=== PATIENT | female | born 1945 | race Caucasian/White ===

== ENCOUNTER 2018-02-04 08:01 | Emergency (ER) | payer MEDICARE ==
[~2018-02-04] VITALS: Ht 154.9 cm; Wt 72.6 kg
--- OUTSIDE RECORDS SUMMARY | ~2018-02-04 | XMS | Clinical Summary ---
Demographics + + + | Address | [address] | | | [place] [address] | + + + | Home Phone | | + + + | Preferred Language | Unknown | + + + | Marital Status | | + + + | Nondenominational Affiliation | 1013 | + + + | Race | Unknown | + + + | Ethnic Group | Unknown | + + + Author + + + | Author | [facility] | | | and [place] | + + + | Organization | [facility] | | | and [place] | + + + | Address | Unknown | + + + | Phone | Unavailable | + + + Support + + + + + | Name | Relationship | Address | Phone | + + + + + | Arlene Chavez | ECON | [address] | | | | | [place] | | | | | [address] | | + + + + + Care Team Providers + +------+ + | Care Hospice Liaison Name | Role | Phone | + +------+ + | Yoav Bobby | PP | | + +------+ + Allergies + + + + + + | Active Allergy | Reactions | Severity | Noted | Comments | | | | | Date | | + + + + + + | Cephalosporins | | | 09/13/20 | | | | | | 16 | | + + + + + + | Nsaids | | | 11/21/20 | | | | | | 16 | | + + + + + + | Penicillins | | | 11/21/20 | | | | | | 16 | | + + + + + + | Quinolones | | | 11/21/20 | | | | | | 16 | | + + + + + + | Sulfa Antibiotics | | | 11/21/20 | | | | | | 16 | | + + + + + + Current Medications + + +-------+---------+------+------+-------+ | Prescription | Sig. | Disp. | Refills | Star | End | Statu | | | | | | t | Date | s | | | | | | Date | | | + + +-------+---------+------+------+-------+ | | Take 1 tablet by | | | | | Activ | | acetaminophen-codein | mouth every 4 hours | | | | | e | | e (TYLENOL #3) | as needed for Pain. | | | | | | | 300-30 mg per tablet | | | | | | | + + +-------+---------+------+------+-------+ | loratadine | Take 10 mg by mouth | | | | | Activ | | (ALLERGY RELIEF) 10 | Daily. | | | | | e | | mg tablet | | | | | | | + + +-------+---------+------+------+-------+ | levothyroxine | Take 100 mcg by | | | | | Activ | | (SYNTHROID, | mouth every morning | | | | | e | | LEVOTHROID) 100 mcg | (before breakfast). | | | | | | | tablet | | | | | | | + + +-------+---------+------+------+-------+ | lovastatin | Take 40 mg by mouth | | | | | Activ | | (MEVACOR) 40 MG | nightly. | | | | | e | | tablet | | | | | | | + + +-------+---------+------+------+-------+ | omeprazole | Take 20 mg by mouth | | | | | Activ | | (PRILOSEC) 20 mg | every morning | | | | | e | | capsule | (before breakfast). | | | | | | + + +-------+---------+------+------+-------+ | Vitamin D, | Take by mouth. | | | | | Activ | | Cholecalciferol, | | | | | | e | | 1000 UNITS TABS | | | | | | | + + +-------+---------+------+------+-------+ | fluticasone | 1 spray by Nasal | | | | | Activ | | (FLONASE) 50 | route Daily. 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 Last Assessment & Plan: Brief, 30 | | minute office encounter with Thea Altamirano "Eliz" [...] today. | + + Family History + + +------+ + | [...] + | Blood Pressure | 125/70 | 09/14/20161351 PST | + + + + | Pulse | 111 | 09/14/20161351 PST | + + + + | Temperature | 37.1 C (98.8 F) | 09/14/20161351 PST | + + + + | Respiratory Rate | 18 | 09/14/20161351 PST | + + + + | Oxygen Saturation | 94% | 09/14/20161351 PST | + + + + | Inhaled Oxygen | - | - | | Concentration | | | + + + + | Weight | 76.3 kg (168 lb 3.2 | 09/14/20161351 PST | | | oz) | | + + + + | Height | 154.9 cm (5' 1") | 09/14/20161351 PST | + + + + | Body Mass Index | 31.78 | 09/14/2016 1352 PST | + + + + Plan of Treatment +--------+ + + + + | Date | Type | Specialty | Care Team | Description | +--------+ + + + + | 02/10/ | Appointment | | Kenya Owens | | | 2017 | | | MD [facility] [address] | | | | | | [place], [place] | | | | | | [address] | | | | | | | | +--------+ + + + + + + + + + | Health Maintenance | Due Date | Last Done | Comments | + + + + + | Vaccine: | | | | | Dtap/Tdap/Td (1 - | 3 | | | | Tdap) | | | | + + + + + | COLON CANCER | | | | | SCREENING | 4 | | | | (COLONOSCOPY EVERY | | | | | 10 YEARS 50-75) | | | | + + + + + | Vaccine: Zoster (#1) | | | | | | 4 | | | + + + + + | Vaccine: | | | | | Pneumococcal 65+ | 9 | | | | High/Highest Risk (1 | | | | | of 2 - PCV13) | | | | + + + + + | Vaccine: Influenza | | | | | (Season Ended) | 8 | | | + + + + + | BREAST CANCER | | 07/29/2016, 06/25/2016, | | | SCREENING (MAMM Q2 | 8 | 10/15/2014, Additional history | | | YEARS 50-74) | | exists | | + + [...] | | | + +--------+ +--------+-------+---------+ | [employer] | [facility] | xxxxxxxxx | Medica | | | | | HEALTH | | re | | | | | MDCR | | | | | + +--------+ [...] | 1945 | [phone] | [place] [address] | | | kayce | | | [phone] | | + +--------+ +--------+ + +
--- OUTSIDE RECORDS SUMMARY | ~2018-02-04 | XMS | Clinical Summary ---
Demographics + + + | Address | [address] | | | [place] [address] | + + + | Home Phone | | + + + | Preferred Language | Unknown | + + + | Marital Status | | + + + | Nondenominational Affiliation | 1013 | + + + | Race | Unknown | + + + | Ethnic Group | Unknown | + + + Author + + + | Author | [facility] | | | and [place] | + + + | Organization | [facility] | | | and [place] | [...] [place] | | | | | [address] | | + + + + + Care Team Providers + +------+ + | Care Licensed Practical Vocational Nurse Name | Role | Phone | + [...] [address] | | | | | | [place], [place] | | | | | | [address] | | | | | | | [...] | 1945 | [phone] | [place] [address] | | | kayce | | | [phone] | | + +--------+ +--------+ + +
[~2018-02-04 08:01] MED LIST: ACETAMINOPHEN-1 EAC1 PO; ALEVE220 M1 PO; ALLERGY10 M1 PO; BENADRYL25 MG PO; CLARITIN10 MG PO; FLONASE ALLERG9.9 ML NS; HYDROMORPHONE HC4 MG PO; LEVOTHYROXINE100 MCG PO; LOVASTATIN40 MG PO; OXYCODON-ACETA1 EAC2 PO; OXYCODONE HCL5 MG PO; PRILOSEC20 MG PO; SLOW RELEASE47.5 MG PO; TYLENOL EXTRA500 MG PO; TYLENOL WITH C1 EACH PO; VITAMIN C500 M1 PO; VITAMIN D31000 UNI1 PO; XARELTO10 MG PO
[2018-02-04] MEDS ORDERED: MACROBID 100 M100 MG PO (09:49)
== END 2018-02-04 09:54 | disposition home or self-care (01) ==
LOC: ED 08:01
DX: N39.0 Urinary tract infection, site not specified (principal); I10 Essential (primary) hypertension; E03.9 Hypothyroidism, unspecified; K21.9 Gastro-esophageal reflux disease without esophagitis; Z88.6 Allergy status to analgesic agent; Z88.0 Allergy status to penicillin; Z88.1 Allergy status to other antibiotic agents; Z79.899 Other long term (current) drug therapy
CPT/HCPCS: 80053; 81001; 83690; 85025; 87077; 87088; 87186; 99283

== ENCOUNTER 2018-04-17 11:39 | Day surgery (SDC) | payer MEDICARE ==
[~2018-04-17] VITALS: Ht 154.9 cm; Wt 77.1 kg
--- NOTE | ~2018-04-17 | OR ---
[facility] [address] [place] [address], [place] [address] Draft DATE OF OPERATION: 04/17/2018 SURGEON: Nga Gottlieb MD PREOPERATIVE DIAGNOSES: 1. Colon screening. 2. Reflux symptoms. POSTOPERATIVE DIAGNOSES: 1. Hiatal hernia without obvious esophagitis. 2. Normal colon to cecum. PROCEDURES PERFORMED: 1. Esophagogastroduodenoscopy with biopsy. 2. Total colonoscopy to cecum. ANESTHESIA: Intravenous sedation, fentanyl 150 mcg, Versed 2 mg total. INDICATIONS FOR PROCEDURE: This 72-year-old white woman has progressive dementia, though has high functioning overall. She was referred by Dr. Garcia for screening colonoscopy. She has never had colonoscopy in the past and has no known family history of colon cancer. The patient also has reflux symptoms, which include epigastric and substernal burning type pain. She takes Tums for that. She is not having dysphagia. She was placed on Pepcid instead of PPI medication under the direction of Dr. Garcia. She does not drink alcohol nor does she smoke. She was admitted to undergo upper endoscopy and colonoscopy, understanding the risks of bleeding, infection, and perforation. FINDINGS: On upper endoscopy, there was a hiatal hernia, but no sign of esophagitis. The stomach and duodenum were normal. CLOtest was negative 30 minutes post procedure. On colonoscopy, the prep was good. Complete colonoscopy was undertaken of the cecum. There was no sign of diverticula, colitis, polyps, or cancer. DESCRIPTION OF PROCEDURE: The patient was brought to the endoscopy suite and placed in lateral decubitus position after undergoing topical Hurricaine spray hypopharyngeal anesthesia. A bite block was PATIENT NAME: CALVIN ALTAMIRANO OPERATIVE REPORT DATE OF : 43 REPORT #: [id number] PHYSICIAN: NGA GOTTLIEB MD PCP: REILLY GARCIA MD REPORT IS CONFIDENTIAL AND NOT TO BE RELEASED WITHOUT AUTHORIZATION [facility] [address] [address], [place] [address] Draft placed. Intravenous sedation was induced to point of slurred speech and nystagmus with full cardiopulmonary monitoring. An Olympus video upper endoscope was passed in the hypopharynx. The vocal cords appeared normal. The scope was easily advanced into the esophagus. Throughout its length, it was normal. Scope was advanced to the stomach, which was insufflated with air. Rugal folds appeared normal as did the antrum. Pylorus was normal. Scope was passed through into the duodenum. The duodenum was also normal. Biopsies were obtained there to assess for celiac disease. The scope was withdrawn. A biopsy was then taken of the antrum for both KRISTEN and pathologic testing. Retroflexed view showed a poor flap valve consistent with small hiatal hernia. The scope was straightened and withdrawn. Biopsies were taken of the distal esophagus, which appeared normal as well as biopsies of the mid esophagus. The scope was removed. Plans were made for colonoscopy. The table was rotated and additional sedation given. Digital rectal examination was normal. An Olympus video colonoscope was passed in the rectum and manipulated throughout the colon ultimately intubating the cecum itself. The cecum, the ileocecal valve, and appendiceal orifice were normal. Scope was withdrawn from that point and examination throughout showed no sign of abnormality, specifically no polyps, diverticular formation, colitis, or cancer. Retroflex view was normal. The scope was removed and the patient was taken to recovery room in good condition. CONCLUDING DIAGNOSES: 1. Normal colon. 2. Hiatal hernia without obvious esophagitis. PLAN: Recommend continued Pepcid as she is taking. Consideration might be made for PPI medication per Dr. Garcia's preference. As regard to colon, no planned surveillance colonoscopy given age of 72 years, unless symptoms should develop. MD EDMUNDO Szymanski/MODL /[id number] PATIENT NAME: CALVIN ALTAMIRANO OPERATIVE REPORT DATE OF : 43 REPORT #: [id number] PHYSICIAN: NGA GOTTLIEB MD PCP: REILLY GARCIA MD REPORT IS CONFIDENTIAL AND NOT TO BE RELEASED WITHOUT AUTHORIZATION [facility] [address] [place] [id number] Draft cc: Reilly Garcia MD Copies: REILLY GARCIA MD ~ PATIENT NAME: CALVIN ALTAMIRANO OPERATIVE REPORT DATE OF : 43 REPORT #: [id number] PHYSICIAN: NGA GOTTLIEB MD PCP: REILLY GARCIA MD REPORT IS CONFIDENTIAL AND NOT TO BE RELEASED WITHOUT AUTHORIZATION
[~2018-04-17 11:39] MED LIST changes: +ALLERGY RELIEF10 MG PO; +DONEPEZIL HCL5 MG PO; +FAMOTIDINE40 MG PO; +LEVOTHYROXINE88 MCG PO; +MACROBID 100 M100 MG PO; +OXYBUTYNIN CHLOR5 MG PO
--- NOTE | 2018-04-17 14:09 | NUR ---
04/17/18 1409 Lillian Dotson 1356 PT ARRVIED RESP EVEN AND UNLABORED ON 4L VIA NC. PT VERY DROWSY AND PT UNABLE TO STAY AWAKE WITHOUT STIMULI. PT DENIES PAIN AND NAUSEA. 1408 PT ASLEEP OFF AND ON. PT REORIENTED TO PACU. PT PASSING GAS/AIR, PT EDUCAITON GIVEN ON PASSING GAS.
== END 2018-04-17 14:45 | disposition home or self-care (01) ==
LOC: DS 11:39 → OPS 11:39 → DS 13:00 → OPS 13:00
PROVIDERS: Surgery
PROC: 0DB78ZX Excision of Stomach, Pylorus, Via Natural or Artificial Opening Endoscopic, Diagnostic (ICD-10-PCS; 2018-04-17)
PROC: 0DB28ZX Excision of Middle Esophagus, Via Natural or Artificial Opening Endoscopic, Diagnostic (ICD-10-PCS; 2018-04-17)
PROC: 0DB38ZX Excision of Lower Esophagus, Via Natural or Artificial Opening Endoscopic, Diagnostic (ICD-10-PCS; 2018-04-17)
PROC: 0DJD8ZZ Inspection of Lower Intestinal Tract, Via Natural or Artificial Opening Endoscopic (ICD-10-PCS; principal; 2018-04-17 13:00)
PROC: 0DB98ZX Excision of Duodenum, Via Natural or Artificial Opening Endoscopic, Diagnostic (ICD-10-PCS; 2018-04-17 13:00)
DX: Z12.11 Encounter for screening for malignant neoplasm of colon (principal); K29.80 Duodenitis without bleeding; K21.9 Gastro-esophageal reflux disease without esophagitis; K44.9 Diaphragmatic hernia without obstruction or gangrene; E03.9 Hypothyroidism, unspecified; E78.00 Pure hypercholesterolemia, unspecified; C50.912 Malignant neoplasm of unspecified site of left female breast; F03.90 Unspecified dementia, unspecified severity, without behavioral disturbance, psychotic disturbance, mood disturbance, and anxiety; Z88.0 Allergy status to penicillin; Z88.2 Allergy status to sulfonamides; Z88.8 Allergy status to other drugs, medicaments and biological substances; Z98.890 Other specified postprocedural states
CPT/HCPCS: 43239; G0121; 99153; G0500; J2250; J3010; J7120

== ENCOUNTER 2019-09-04 10:28 | Emergency (ER) | payer MEDICARE ==
[~2019-09-04] VITALS: Ht 154.9 cm; Wt 77.1 kg
--- OUTSIDE RECORDS SUMMARY | ~2019-09-04 | XMS | Encounter Summary ---
Demographics + + + | Address | [address] | | | [place] [address] | + + + | Home Phone | | + + + | Preferred Language | Unknown | + + + | Marital Status | | + + + | Catholic Affiliation | 1013 | + + + | Race | Unknown | + + + | Ethnic Group | Unknown | + + + Author + + + | Author | [facility] | | | and [place] | + + + | Organization | [facility] | | | and [place] | + + + | Address | Unknown | + + + | Phone | Unavailable | + + + Support + + +---------+ + | Name | Relationship | Address | Phone | + + +---------+ + | Mark Gerardo | ECON | Unknown | | + + +---------+ + Care Team Providers + +------+ + | Care Joinery Patternmaker Name | Role | Phone | + +------+ + | Yoav Bobby MD | PCP | | + +------+ + Reason for Visit + + + | Reason | Comments | + + + | Psychosocial Support | | + + + Encounter Details +--------+ + + + + | Date | Type | Department | Care Team | Description | +--------+ + + + + | 09/27/ | Documentati | [facility] | Apollo Dhillon, | Psychosocial Support | | 2016 | on | [facility] | [facility] | | | | | [facility] [address] | | | | | | [address] | | | | | | [place] [address] | | | | | | [phone] | | | +--------+ + + + + Social History + +-------+ +--------+------+ | Tobacco Use | Types | Packs/Day | Years | Date | | | | | Used | | + +-------+ +--------+------+ | Never Smoker | | | | | + +-------+ +--------+------+ + +---+---+---+ | Smokeless Tobacco: | | | | | Never Used | | | | + +---+---+---+ + + +---------+ + | Alcohol Use | Drinks/Week | oz/Week | Comments | + + +---------+ + | No | | | | + + +---------+ + + + + | Sex Assigned at | Date Recorded | | | | + + + | Not on file | | + + + + + + + | Job Start Date | Occupation | Industry | + + + + | Not on file | Not on file | Not on file | + + + + + + + + | Travel History | Travel Start | Travel End | + + + + + + | No recent travel history available. | + + documented as of this encounter Progress Notes Apollo Dhillon MSW - 10/01/2016 9:56 AM PSTMSW met with patient, Thea Bey (Kay), to introduce self and administer NCCN Distress Screening Tool. Eliz is being treated for jo st cancer. She lives in [place], [place]. Eliz is covered by [employer] HMO. Eliz is alert and oriented X4 and reports no history of depression and/or anxiety. There is no evidence of thought disorder or other mental illness. Eliz reports level of distress is 5 on a 10 point scale. She attributes level of distress to the unknown about her diagnosis, treatment and future. Patient reports an adequate support system, good coping skills and st donal ramandeep. This Microsoft Solutions Architect allowed for expression of feeling and provided supportive counseling and information regarding the emotional aspects of a cancer diagnosis and treatment. Encourage d Eliz to attend community support group and offered literature on patient s diagnosis. This Microsoft Solutions Architect and Windows Server Architect are available to provide emotional support an d additional community resource information and referral as needed. Eliz is aware of support services and how to access them. Will follow up at appointments and by phone as needed.Elec tronically signed by DARLENE Cheung at 10/01/2016 9:58 AM PSTdocumented in this encou nter Plan of Treatment +--------+ + + + + | Date | Type | Specialty | Care Team | Description | +--------+ + + + + | 10/23/ | Appointment | Radiation Oncology | | | | 2019 | | | | | +--------+ + + + + documented as of this encounter Visit Diagnoses Not on filedocumented in this encounter"
--- OUTSIDE RECORDS SUMMARY | ~2019-09-04 | XMS | Encounter Summary ---
Demographics + + + | Address | [address] | | | [place] [address] | + + + | Home Phone | | + + + | Preferred Language | Unknown | + + + | Marital Status | | + + + | Hinduism Affiliation | 1013 | + + + | Race | Unknown | + + + | Ethnic Group | Unknown | + + + Author + + + | Author | [facility] | | | and [place] | + + + | Organization | [facility] | | [...] Team Providers + +------+ + | Care Buzzsaw Operator Name | Role | Phone | + +------+ + PCP | Unavailable | + +------+ + Encounter Details +--------+ + + + + | Date | Type | Department | Care Team | Description | +--------+ + + + + | 01/03/ | Hospital | [facility] | | | | 1994 | Encounter | MED CTR XRAY [address] | | | | | | [place] | | | | | | [place] [address] | | | | | | [phone] | | | +--------+ + + + + Social History + +-------+ +--------+------+ | Tobacco Use | Types | Packs/Day | Years | Date | | | | | Used | | + +-------+ +--------+------+ | Never Assessed | | | | | + +-------+ +--------+------+ + + + | Sex Assigned at [...] + + documented as of this encounter Plan of Treatment +--------+ + + + [...]
--- OUTSIDE RECORDS SUMMARY | ~2019-09-04 | XMS | Encounter Summary ---
Demographics + + + | Address | [address] | | | [place] [address] | + + + | Home Phone | | + + + | Preferred Language | Unknown | + + + | Marital Status | | + + + | Mandaen Affiliation | 1013 | + + + | Race | Unknown | + + + | Ethnic Group | Unknown | + + + Author + + + | Author | [facility] | | | and [place] | + + + | Organization | [facility] | | | [...] Team Providers + +------+ + | Care Medical Scientific Officer Name | Role | Phone | + +------+ + | Yoav Bobby MD | PCP | | + +------+ + Encounter Details +--------+ + + + + | Date | Type | Department | Care Team | Description | +--------+ + + + + | 10/29/ | [facility] | [facility] | Kenya Tariq | | | 2017 | Encounter | MED CTR RADIATION | MD [facility] [address] | | | | | [address]OGY [address] [place], [place] | | | | | [place], | [address] | | | | | [place] [address] | | | | | | [phone] | | | +--------+ + + + [...] + + documented as of this encounter Medications at Time of Discharge + + + +---------+--------+ + | Medication | Sig | Dispensed | Refills | Start | End Date | | | | | | Date | | + + + +---------+--------+ + | | Take 1 tablet by | | 0 | | | | acetaminophen-codein | mouth every 4 hours | | | | | | e (TYLENOL #3) | as needed for Pain. | | | | | | 300-30 mg per tablet | | | | | | + + + +---------+--------+ + | fluticasone | 1 spray by Nasal | | 0 | | | | (FLONASE) 50 | route Daily. | | | | | | mcg/nasal spray | | | | | | + + + +---------+--------+ + | levothyroxine | Take 100 mcg by | | 0 | | | | (SYNTHROID, | mouth every morning | | | | | | LEVOTHROID) 100 mcg | (before breakfast). | | | | | | tablet | | | | | | + + + +---------+--------+ + | loratadine | Take 10 mg by mouth | | 0 | | | | (ALLERGY RELIEF) 10 | Daily. | | | | | | mg tablet | | | | | | + + + +---------+--------+ + | Vitamin D, | Take by mouth. | | 0 | | | | Cholecalciferol, | | | | | | | 1000 UNITS TABS | | | | | | + + + +---------+--------+ + | lovastatin | Take 40 mg by mouth | | 0 | | 04/ | | (MEVACOR) 40 MG | nightly. | | | | 8 | | tablet | | | | | | + + + +---------+--------+ + | omeprazole | Take 20 mg by mouth | | 0 | | | | (PRILOSEC) 20 mg | every morning | | | | 8 | | capsule | (before breakfast). | | | | | + + + +---------+--------+ + documented as of this encounter Progress Notes Michael De La Paz DO - 11/11/2016 6:21 PM [facility] On Treatment Note Name: Thea Bey ID: [id number] Date of Service:11/11/2016 ICD-9 and Description: C50.912 - Malignant neoplasm of unspecified site of left female breast, Diagnosed 08/2016 (Active) , Radiation Technical Factors: --Planned Dose: Thorax (Plan ID - Lt Breast) - Rx Dose 4,005cGy (Status - Treatment Approved) - 14 / 15 Thorax (Plan ID - Lt Breast bst) - Rx Dose 1,000cGy (Status - Treatment Approved) - 0 / 5 --Current Dose: Course: Thorax Treatment Site: Lt Breast Energy: 10X Dose/Fx (cGy): 267 #Fx: 14 15 Dose Correction (cGy): 0 Total Dose (cGy): 3,738 Start Date: 10/11/2016 End Date: 11/11/2016 Elapsed Days: Imaging Review: Images were reviewed this week and results of the review have been recorded in ARIA. Cor rections were applied as necessary. Clinical Data Vital Signs: Performed on 11/11/2016 2:32 PM Weight - 77.0 kg - , Temperature - 99.3 C (HIGH) - , Pulse - 84 / min - , Respiration - 16 / min - , Systolic - 121 mm(hg) - , Diastolic - 69 mm(hg) - , O2 Sat - 97 % - , Pain - 0 - and BP - 121/ 69 - ;. Performance Scale: 80% - Normal activity, but requires effort. (Karnofsky) Pain Assessment: Are you having pain? - No Toxicities: PE ConstitutionalNo evidence of impaired alertness, inadequate appearance, premature or ad vanced chronologic age, uncooperativeness, altered mood and affect and disorientation. The following toxicities were assessed as a 1: Fatigue (lethar/malai/astheni) - - Increased fatigue over baseline, but not altering katy l activities Pigmentation changes - - Localized pigmentation changes Radiation Dermatitis - - Faint erythema or dry desquamation Cough - - Absent Dry Skin - - Normal RT - Pain due to RT - - None Rash/ desquamation - - None Physician Assessment: 18:20:00 - On Treatment Progress Note - Michael De La Paz D.O. - Overall, she is tolerating kaylan atment well with a grade 1 dermatitis. There is mild hyperpigmentation in the left axilla. She is otherwise tolerating treatment well. She has no specific concerns or complaints t miguel and will continue treatment as planned. Approved by: Michael De La Paz D.O. 11/11/2016 6:21:53 PM Page 1 of 2 CSN: [id number] signed by Michael De La Paz DO at 11/11/2016 6:21 PM Leidy larson in this encounter Plan of Treatment +--------+ + [...]
--- OUTSIDE RECORDS SUMMARY | ~2019-09-04 | XMS | Encounter Summary ---
Demographics + + + | Address | [address] | | | [place] [address] | + + + | Home Phone | | + + + | Preferred Language | Unknown | + + + | Marital Status | | + + + | Anabaptist Affiliation | [id number] | + + + | Race | Unknown | + + + | Ethnic Group | Unknown | + + + Author + + + | Author | [facility] | | | and [place] | + + + | Organization | [facility] | | | and [...] Team Providers + +------+ + | Care Steward Racetrack Name | Role | Phone | + +------+ + | Yoav Bobby MD | PCP | | + +------+ + Reason for Visit Evaluate & Treat (Routine) +--------+--------+ + + + + | Status | Reason | Specialty | Diagnoses / | Referred By | Referred To | | | | | Procedures | Contact | Contact | +--------+--------+ + + + + | Closed | | Radiation | Diagnoses | Dimaante, | Chandni | | | | Oncology | Malignant | Yoav | Kenya Mcallister MD | | | | | neoplasm of | MD Oscar | [address] | | | | | upper-outer | [address] | | | | | quadrant of | [place] | [place], | | | | | left female | [address] | [place] [address] | | | | | breast (HCC) | [place], | Phone: | | | | | Procedures | [place] | [phone] | | | | | [place] OFFICE | [address] | Fax: | | | | | OUTPATIENT | Phone: | [phone] | | | | | VISIT 25 | [phone] | | | | | | MINUTES | Fax: | | | | | | | [phone] | | +--------+--------+ + + + + Encounter Details +--------+ + + + + | Date | Type | Department | Care Team | Description | +--------+ + + + + | 02/23/ | Hospital | [facility] | Kenya Tariq | Encounter for | | 2017 | Encounter | [facility] | MD Esvin [address] | screening mammogram | | | | ONCOLOGY [address] [place], [place] | for high-risk | | | | [place], | [address] | patient (Primary Dx) | | | | [place] [address] | | | | | | [phone] | | | +--------+ + + + [...] + + documented as of this encounter Discharge Instructions Patient Instructions Candace Naranjo RN - 02/23/2017 3:17 PM PDTSchedule screening mammog uma at [facility] for June 2017 Increase activity by walking Follow up with Dr. Lucio after mammogram Apply lotion to left breast and massage Electronically signed by Candace Naranjo RN at 12/2016 3:23 PM PDT documented in this encounter Medications at Time of Discharge [...] | | 0 | | | | (MEVACOR) 40 MG | nightly. [...] documented as of this encounter Progress Notes Kenya Srinivasan MD - 02/23/2017 12[facility] PATIENT: Thea Bey MR#: [id number] :1945 DOS:02/23/2017 ICD/Diagnosis: C50.912 - Malignant neoplasm of unspecified site of left female breast, Diagnosed 08/2016 (Active) Chief Complaint/History of Present Illness: Thea Bey is a 71 year-old woman with a history of triple negative left breast ca ncer, pathologic stage IA, pT1c pN0 cM0. 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 She has undergone lumpecto my and sentinel lymph node biopsy, declined adjuvant chemotherapy. Completed adjuvant whol e breast radiation with 40.05 Gy in 15 Gy and lumpectomy boost of 10 Gy in 5 fractions, . Eliz has been doing well. She has mild breast pain, and notes tightness in left arm. Comp lains of continued low energy level. Here general health is stable. No new lumps or areas of pain. She denies headaches or neurologic symptoms. Annual mammogram due in July. Review of Systems: ROS ConstitutionalNormal - Denies lack of appetite, fatigue, fever, night sweats, rigors / chills and change in weight.ROS EyesNormal - Denies blurred vision, double vision and visu al difficulties.ROS ENMTNormal - Denies dysphagia, esophagitis and sinusitis.ROS NeckNormal - Denies neck masses, muscle weakness, neck pain, decreased range of motion and swelling o f the neck. ROS IntegumentaryNormal - Denies blistering, bruising, dry skin, pruritus and rash.ROS BreastsAbnormal - Complains of pain Occasional pain in left breast. Denies breast masses.ROS CardiovascularNormal - Denies arrhythmias, chest pain, dyspnea, edema and palpit ations.ROS RespiratoryNormal - Denies cough, dyspnea, hemoptysis and wheezing.ROS Gastroint estinalAbnormal - Complains of diarrhea. Denies abdominal pain, constipation, nausea and vo miting.ROS Genitourinary (F)Normal - Denies dysuria, frequency, hematuria, nocturia, urgen cy and urine color change.ROS MusculoskeletalNormal - Denies arthritis, joint pain, muscle weakness and decreased range of motion.ROS Neurologic Normal - Denies dizziness, headaches, motor weakness and sensory problems.ROS PsychiatricNormal - Denies mood swings, depression and euphoria.ROS Endocrine Abnormal - Complains of thyroid disease. Denies diabetes and ho t flashes.ROS Hematologic/LymphaticAbnormal - Complains of easy bruising. Denies tender or enlarged lymph nodes. Medications: Acetaminophen-Codeine 300-30 mg Aleve 220 mg tabs TABLET b.i.d. Claritin 10 mg Flonase 50 mcg/act SUSPENSION Take as Directed Levothyroxine 100 mcg TABLET q.d. Lovastatin 40 mg Omeprazole 20 mg Vitiamin D3 1,000 units TABLET q.d. Allergies: Cephalosporins Penicillin Quinolones Sulfa drugs Vital Signs: Performed on 02/23/2017, 14:32Weight 79.9 kg Temperature 36.4 C (LOW) Pulse 94 / min Respiration 16 / min BP132/71 mm(hg) O2 Sat 96 % Pain 0 Physical Exam: General: Healthy appearing woman in no acute medical distress. KPS: 80 HEENT: Pupils equal , round and reactive to light. No conjunctival icterus or injection. EOMI. Oral, moist mucu s membranes. Lymphatic: No cervical, supraclavicular or axillary lymphadenopathy. Cardiovascular: Regul ar rate and rhythm, no murmur. Pulmonary: Breath sounds heard throughout, no adventitial sounds or increased work of jo thing at rest. Abdomen: Soft, non-tender, no masses or organomegaly detected. Extremities: Upper and lowe r extremities warm and well perfused with no upper or lower extremity edema. Neurologic: Alert, oriented and appropriated in conversation. CN II-IX grossly intact. Moves all 4 extremities normally with normal gait. Psychiatric: Appropriate. Breast: Exam performed in the presence of a marketing communications manager. On upright exam breasts appear sym metric bilaterally with no contour abnormalities or malignant appearing skin changes. The left breast demonstrates a well-healed surgical incision. On supine exam palpation of the left breast demonstrates mild fibrosis at the site of prior lumpectomy. No discrete mass l esions are identified in either breast. There is no pain with palpation. No nipple abarca es. Questionnaires: Are you having pain?No Imaging, pathology and pertinent labs reviewed personally and described above in history o f present illness. Impression/Plan: 71 year-old woman with a history of triple negative left breast cancer, pathologic stage IA, pT1c pN0 cM0. 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 She has undergone lumpectomy and sentinel lymph n ode biopsy, declined adjuvant chemotherapy. Completed adjuvant whole breast radiation with 40.05 Gy in 15 Gy and lumpectomy boost of 10 Gy in 5 fractions, 11/19/16. Eliz is overall doing well. History and exam today are benign. We discussed the need for ongoing stretching and scar massage. She should also continue with annual mammography, Jul 2017. She should follow-up here in 6 months. Thank you for allowing me to participate in the care of Thea Bey. If you should have any questions regarding this evaluation, please do not hesitate to contact me. Kenya Lucio M.D. Radiation Oncologist Department of Radiation Oncology [facility] Electronically signed by Kenya Srinivasan M.D CC: Noé Liao M.D. Oscar Bobby M.D. Bo Caicedo M.D. This note was transcribed using Dime speech recognition software. As a result, there ma y be unintended for medical and/or spelling errors. Every attempt is made to correct dicta tion. If there are any questions or errors please contact our office. CSN: [id number] signed by Kenya Srinivasan MD at 03/12/2017 12:41 PM PDTd ocumented in this encounter Plan of Treatment +--------+ + + + + | Date | Type | Specialty | Care Team | Description | +--------+ + + + + | 10/23/ | Appointment | Radiation Oncology | | | | 2019 | | | | | +--------+ + + + + documented as of this encounter Procedures + +--------+ + + + | Procedure Name | Priori | Date/Time | Associated Diagnosis | Comments | | | ty | | | | + +--------+ + + + | IMAGING REPORT - | | 08/09/2017 | | Results for this | | EXTERNAL SCAN | | 12:00 AM | | procedure are in the | | | | PDT | | results section. | + +--------+ + + + | IMAGING REPORT - | | 08/02/2017 | | Results for this | | EXTERNAL SCAN | | 12:00 AM | | procedure are in the | | | | PDT | | results section. | + +--------+ + + + | IMAGING REPORT - | | 08/02/2017 | | Results for this | | EXTERNAL SCAN | | 12:00 AM | | procedure are in the | | | | PDT | | results section. | + +--------+ + + + | IMAGING REPORT - | | 08/02/2017 | | Results for this | | EXTERNAL SCAN | | 12:00 AM | | procedure are in the | | | | PDT | | results section. | + +--------+ + + + documented in this encounter Results IMAGING REPORT - EXTERNAL SCAN (08/09/2017 12:00 AM PDT) + + + | Narrative | Performed At | + + + | Ordered by an | | | unspecified provider. | | + + + IMAGING REPORT - EXTERNAL SCAN (08/02/2017 12:00 AM PDT) + + + | Narrative | Performed At | + + + | Ordered by an | | | unspecified provider. | | + + + IMAGING REPORT - EXTERNAL SCAN (08/02/2017 12:00 AM PDT) + + + | Narrative | Performed At | + + + | Ordered by an | | | unspecified provider. | | + + + IMAGING REPORT - EXTERNAL SCAN (08/02/2017 12:00 AM PDT) + + + | Narrative | Performed At | + + + | Ordered by an | | | unspecified provider. | | + + + documented in this encounter Visit Diagnoses + + | Diagnosis | + + | Encounter for screening mammogram for high-risk patient - Primary | + + documented in this encounter"
--- OUTSIDE RECORDS SUMMARY | ~2019-09-04 | XMS | Encounter Summary ---
Demographics + + + | Address | [address] | | | [place] [address] | + + + | Home Phone | | + + + | Preferred Language | Unknown | + + + | Marital Status | | + + + | Worship Affiliation | 1013 | + + + [...] Team Providers + +------+ + | Care Wire Harness Design Engineer Name | Role | Phone | + +------+ + | Reilly Garcia MD | PCP | | + +------+ + Encounter Details +--------+ + + + + | Date | Type | Department | Care Team | Description | +--------+ + + + + | 08/10/ | Orders Only | [facility] | Reilly Garcia | | | 2018 | | CONVERSION [address] | MD [address] | | | | | [place] [address] | [place] | | | | | [place] | [place] [address] | | | | | [address] | [phone] | | | | | [phone] | | | +--------+ + + + [...] | + +--------+ + + + | ECHO INTERPRETATION | Routin | 08/10/2018 | | Results for this | | OF OUTSIDE FILMS | e | 8:57 AM | | procedure are in the | | | | PDT | | results section. | + +--------+ + + + documented in this encounter Results ECHO Interpretation of Outside Films (08/10/2018 8:57 AM PDT) + + | Specimen | + + | | + + + + + | Impressions | Performed At | + + + | 1. The left ventricle is normal in size, wall thickness and systolic | | | function EF 60-65%. 2. The right ventricle is normal in size and | | | function. 3. Mild tricuspid regurgitation present. 4. There is no | | | pericardial effusion. | | + + + + + + | Narrative | Performed At | + + + | Patient Name: Thea Bey Date of : 1945 | | | Performing Physician: Ankita Britton | | | | | | INDICATIONS Near syncope CONCLUSIONS | | | 1. The left ventricle is normal in size, wall thickness and systolic | | | function EF 60-65%. 2. The right ventricle is normal in size and | | | function. 3. Mild tricuspid regurgitation present. 4. There is no | | | pericardial effusion. FINDINGS -------- ECG rhythm: Sinus | | | rhythm. Study: A 2-dimensional transthoracic echocardiogram with | | | m-mode, spectral and color flow Doppler was perfomed. Study: This was | | | a technically adequate study. Left Ventricle: Overall left | | | ventricular systolic function is normal with, an EF between 60 - 65 %. | | | Left Ventricle: The left ventricle cavity size is normal. Left | | | Ventricle: Left ventricular wall thickness is normal. Left Ventricle: | | | No regional wall motion abnormalities. Right Ventricle: The right | | | ventricle is normal in size and function. Left Atrium: The left | | | atrium is normal in size. Right Atrium: The right atrium is normal in | | | size. Aortic Valve: Trace amount of aortic regurgitation. Aortic | | | Valve: There is no evidence of aortic stenosis. Aortic Valve: Aortic | | | valve is trileaflet and is mildly thickened. Mitral Valve: The mitral | | | valve is normal. Mitral Valve: There is trace mitral regurgitation. | | | Tricuspid Valve: The tricuspid valve appears structurally normal. | | | Tricuspid Valve: Mild tricuspid regurgitation present. Tricuspid | | | Valve: There is no evidence of pulmonary hypertension. Tricuspid | | | Valve: The right ventricular systolic pressure (pulmonary artery | | | systolic pressure), as measured by Doppler, is 25.52mmHg. Pulmonic | | | Valve: The pulmonic valve is normal. Pulmonic Valve: Trace/mild | | | pulmonic regurgitation. Pericardium: There is no pericardial | | | effusion. Pericardium: No pleural effusion seen. IVC/Hepatic Veins: | | | The IVC is normal size (1.5-2.5cm) and collapses >50% with sniff, | | | consistent with central venous pressures of 5-10mmHg. Aorta: The | | | aortic root, ascending aorta and aortic arch are normal in size. | | | Septum: Mobile interatrial septum. MEASUREMENTS Ao | | | asc: 3.27 cm Ao Diam: 3.[address] junct: 2.87 cm IVC: | | | 1.84 cm LA Diam: 3.49 cm LA Major: 4.25 cm EDV(Teich): | | | 69.26 ml IVSd: 0.92 cm LVIDd: 3.98 cm LVPWd: 0.83 cm LVOT | | | Area: 3.62 cm2 LVOT Diam: 2.14 cm %FS: 32.84 % EF(Teich): | | | 61.90 % ESV(Teich): 26.38 ml LVIDs: 2.67 cm SV(Teich): | | | 42.88 ml RA Major: 4.34 cm RV Major: 6.32 cm RVIDd: 3.16 | | | cm TV Sabiha Diam: 3.28 cm Ao Root: 3.20 cm Ao Diam SVals: | | | 3.07 cm LVEF MOD A2C: 62.23 % SV MOD A2C: 21.39 ml LVEF MOD | | | A4C: 64.57 % SV MOD A4C: 26.80 ml EF Biplane: 64.12 % | | | LVEDV MOD BP: 39.08 ml LVESV MOD BP: 14.02 ml LVEDV MOD A2C: | | | 34.37 ml LVLd A2C: 6.51 cm LVEDV MOD A4C: 41.51 ml LVLd | | | A4C: 7.08 cm LVESV MOD A2C: 12.97 ml LVLs A2C: 5.79 cm | | | LVESV MOD A4C: 14.70 ml LVLs A4C: 6.05 cm LAESV(A-L): 25.42 | | | ml LAESV Index (A-L): 14.52 ml/m2 LAAs A2C: 12.21 cm2 LAESV | | | A-L A2C: 28.55 ml LALs A2C: 4.43 cm LAAs A4C: 10.23 cm2 | | | LAESV A-L A4C: 21.30 ml LALs A4C: 4.17 cm RAAs: 11.64 cm2 | | | RAESV A-L: 25.86 ml RAESV MOD: 25.17 ml RALs: 4.44 cm | | | TAPSE: 1.80 cm AV maxP.07 mmHg AV meanP.38 mmHg AV | | | Vmax: 1.12 m/s AV Vmean: 0.70 m/s AV VTI: 18.38 cm TONI | | | Vmax: 2.58 cm2 TONI (VTI): 2.95 cm2 LVOT maxP.57 mmHg | | | LVOT meanP.37 mmHg LVSI Dopp: 31.04 ml/m2 LVSV Dopp: | | | 54.32 ml LVOT Vmax: 0.80 m/s LVOT Vmean: 0.53 m/s LVOT VTI: | | | 15.00 cm MV A Dominik: 0.78 m/s MV Dec Maury: 1.85 m/s2 MV | | | DecT: 283.47 ms MV E Dominik: 0.52 m/s MV E/A Ratio: 0.67 MV | | | PHT: 82.20 ms MVA By PHT: 2.67 cm2 Septal e': 0.06 m/s | | | Septal E/e': 8.11 Lateral e': 0.06 m/s Lateral E/e': 8.16 | | | RAP: 5 mmHg RVSP: 25.51 mmHg TR maxP.51 mmHg TR Vmax: | | | 2.26 m/s Hotel Engineer: TRINA Authenticated by: Ankita Britton | | | Report Date/Time: 08-10-2018 18:21:1 | | + + + + + | Procedure Note | + + | Da Serrano Conversion - 06/14/2019 4:43 PM PDT Patient Name: Shaun Bey of | | : 1945 Performing Physician: Ankita | | Darylgaye INDICATIONS------ | | -----Near syncope CONCLUSIONS 1. The left ventricle is normal in size, wall | | thickness and systolic function EF 60-65%.2. The right ventricle is normal in size and | | function.3. Mild tricuspid regurgitation present.4. There is no pericardial effusion. | | FINDINGS--------ECG rhythm: Sinus rhythm.Study: A 2-dimensional transthoracic | | echocardiogram with m-mode, spectral and color flow Doppler was perfomed.Study: This was | | a technically adequate study.Left Ventricle: Overall left ventricular systolic function | | is normal with, an EF between 60 - 65 %.Left Ventricle: The left ventricle cavity size | | is normal.Left Ventricle: Left ventricular wall thickness is normal.Left Ventricle: No | | regional wall motion abnormalities.Right Ventricle: The right ventricle is normal in | | size and function.Left Atrium: The left atrium is normal in size.Right Atrium: The right | | atrium is normal in size.Aortic Valve: Trace amount of aortic regurgitation.Aortic | | Valve: There is no evidence of aortic stenosis.Aortic Valve: Aortic valve is trileaflet | | and is mildly thickened.Mitral Valve: The mitral valve is normal.Mitral Valve: There is | | trace mitral regurgitation.Tricuspid Valve: The tricuspid valve appears structurally | | normal.Tricuspid Valve: Mild tricuspid regurgitation present.Tricuspid Valve: There is | | no evidence of pulmonary hypertension.Tricuspid Valve: The right ventricular systolic | | pressure (pulmonary artery systolic pressure), as measured by Doppler, is | | 25.52mmHg.Pulmonic Valve: The pulmonic valve is normal.Pulmonic Valve: Trace/mild | | pulmonic regurgitation.Pericardium: There is no pericardial effusion.Pericardium: No | | pleural effusion seen.IVC/Hepatic Veins: The IVC is normal size (1.5-2.5cm) and | | collapses >50% with sniff, consistent with central venous pressures of 5-10mmHg.Aorta: | | The aortic root, ascending aorta and aortic arch are normal in size.Septum: Mobile | | interatrial septum. MEASUREMENTS Ao asc: 3.27 cmAo Diam: 3.[address] | | junct: 2.87 cmIVC: 1.84 cmLA Diam: 3.49 cmLA Major: 4.25 cmEDV(Teich): 69.26 | | mlIVSd: 0.92 cmLVIDd: 3.98 cmLVPWd: 0.83 cmLVOT Area: 3.62 ql1CCIT Diam: 2.14 | | cm%FS: 32.84 %EF(Teich): 61.90 %ESV(Teich): 26.38 mlLVIDs: 2.67 cmSV(Teich): | | 42.88 mlRA Major: 4.34 cmRV Major: 6.32 cmRVIDd: 3.16 cmTV Sabiha Diam: 3.28 cmAo | | Root: 3.20 cmAo Diam SVals: 3.07 cmLVEF MOD A2C: 62.23 %SV MOD A2C: 21.39 mlLVEF | | MOD A4C: 64.57 %SV MOD A4C: 26.80 mlEF Biplane: 64.12 %LVEDV MOD BP: 39.08 | | mlLVESV MOD BP: 14.02 mlLVEDV MOD A2C: 34.37 mlLVLd A2C: 6.51 cmLVEDV MOD A4C: | | 41.51 mlLVLd A4C: 7.08 cmLVESV MOD A2C: 12.97 mlLVLs A2C: 5.79 cmLVESV MOD A4C: | | 14.70 mlLVLs A4C: 6.05 cmLAESV(A-L): 25.42 mlLAESV Index (A-L): 14.52 ml/m2LAAs | | A2C: 12.21 iq5CMLUD A-L A2C: 28.55 mlLALs A2C: 4.43 cmLAAs A4C: 10.23 xm2XLEYR | | A-L A4C: 21.30 mlLALs A4C: 4.17 cmRAAs: 11.64 ng2KJEQE A-L: 25.86 mlRAESV MOD: | | 25.17 mlRALs: 4.44 cmTAPSE: 1.80 cmAV maxP.07 mmHgAV meanP.38 mmHgAV | | Vmax: 1.12 m/Coreen Vmean: 0.70 m/Coreen VTI: 18.38 cmAVA Vmax: 2.58 cm2AVA (VTI): | | 2.95 mx6RVKM maxP.57 mmHgLVOT meanP.37 mmHgLVSI Dopp: 31.04 ml/m2LVSV | | Dopp: 54.32 mlLVOT Vmax: 0.80 m/sLVOT Vmean: 0.53 m/sLVOT VTI: 15.00 cmMV A Dominik: | | 0.78 m/sMV Dec Maury: 1.85 m/s2MV DecT: 283.47 msMV E Dominik: 0.52 m/sMV E/A | | Ratio: 0.67MV PHT: 82.20 msMVA By PHT: 2.67 qy8Kjzjkj e': 0.06 m/sSeptal E/e': | | 8.11Lateral e': 0.06 m/sLateral E/e': 8.16RAP: 5 mmHgRVSP: 25.51 mmHgTR maxPG: | | 20.51 mmHgTR Vmax: 2.26 m/s Hotel Engineer: DHAuthenticated by: Ankita Samayoa | | Date/Time: 08-10-2018 18:21:1 IMPRESSION: 1. The left ventricle is normal in size, wall | | thickness and systolic function EF 60-65%.2. The right ventricle is normal in size and | | function.3. Mild tricuspid regurgitation present.4. There is no pericardial effusion. | |MEASUREMENTS | | | |Ao asc: 3.27 cm | |Ao Diam: 3.19 cm | |Ao st junct: 2.87 cm | |IVC: 1.84 cm | |LA Diam: 3.49 cm | |LA Major: 4.25 cm | |EDV(Teich): 69.26 ml | |IVSd: 0.92 cm | |LVIDd: 3.98 cm | |LVPWd: 0.83 cm | |LVOT Area: 3.62 cm2 | |LVOT Diam: 2.14 cm | |%FS: 32.84 % | |EF(Teich): 61.90 % | |ESV(Teich): 26.38 ml | |LVIDs: 2.67 cm | |SV(Teich): 42.88 ml | |RA Major: 4.34 cm | |RV Major: 6.32 cm | |RVIDd: 3.16 cm | |TV Sabiha Diam: 3.28 cm | |Ao Root: 3.20 cm | |Ao Diam SVals: 3.07 cm | |LVEF MOD A2C: 62.23 % | |SV MOD A2C: 21.39 ml | |LVEF MOD A4C: 64.57 % | |SV MOD A4C: 26.80 ml | |EF Biplane: 64.12 % | |LVEDV MOD BP: 39.08 ml | |LVESV MOD BP: 14.02 ml | |LVEDV MOD A2C: 34.37 ml | |LVLd A2C: 6.51 cm | |LVEDV MOD A4C: 41.51 ml | |LVLd A4C: 7.08 cm | |LVESV MOD A2C: 12.97 ml | |LVLs A2C: 5.79 cm | |LVESV MOD A4C: 14.70 ml | |LVLs A4C: 6.05 cm | |LAESV(A-L): 25.42 ml | |LAESV Index (A-L): 14.52 ml/m2 | |LAAs A2C: 12.21 cm2 | |LAESV A-L A2C: 28.55 ml | |LALs A2C: 4.43 cm | |LAAs A4C: 10.23 cm2 | |LAESV A-L A4C: 21.30 ml | |LALs A4C: 4.17 cm | |RAAs: 11.64 cm2 | |RAESV A-L: 25.86 ml | |RAESV MOD: 25.17 ml | |RALs: 4.44 cm | |TAPSE: 1.80 cm | |AV maxP.07 mmHg | |AV meanP.38 mmHg | |AV Vmax: 1.12 m/s | |AV Vmean: 0.70 m/s | |AV VTI: 18.38 cm | |TONI Vmax: 2.58 cm2 | |TONI (VTI): 2.95 cm2 | |LVOT maxP.57 mmHg | |LVOT meanP.37 mmHg | |LVSI Dopp: 31.04 ml/m2 | |LVSV Dopp: 54.32 ml | |LVOT Vmax: 0.80 m/s | |LVOT Vmean: 0.53 m/s | |LVOT VTI: 15.00 cm | |MV A Dominik: 0.78 m/s | |MV Dec Maury: 1.85 m/s2 | |MV DecT: 283.47 ms | |MV E Dominik: 0.52 m/s | |MV E/A Ratio: 0.67 | |MV PHT: 82.20 ms | |MVA By PHT: 2.67 cm2 | |Septal e': 0.06 m/s | |Septal E/e': 8.11 | |Lateral e': 0.06 m/s | |Lateral E/e': 8.16 | |RAP: 5 mmHg | |RVSP: 25.51 mmHg | |TR maxP.51 mmHg | |TR Vmax: 2.26 m/s | | | |Hotel Engineer: | |Authenticated by: Ankita Britton | |Report Date/Time: 08-10-2018 18:21:1 | | | |IMPRESSION: | |1. The left ventricle is normal in size, wall thickness and systolic function EF 60-65%. | |2. The right ventricle is normal in size and function. | |3. Mild tricuspid regurgitation present. | |4. There is no pericardial effusion. | + + documented in this encounter Visit Diagnoses Not on filedocumented in this encounter"
--- OUTSIDE RECORDS SUMMARY | ~2019-09-04 | XMS | Encounter Summary ---
Demographics + + + | Address | [address] | | | [place] [address] | + + + | Home Phone | | + + + | Preferred Language | Unknown | + + + | Marital Status | | + + + | Confucianist Affiliation | 1013 | + + + | Race | Unknown | + + + | Ethnic Group | Unknown | + + + Author + + + | Author | [facility] | | | and [place] | + + + | Organization | [facility] | | | [...] Team Providers + +------+ + | Care Water Softener Servicer Name | Role | Phone | + +------+ + | Yoav Bobby MD | PCP | | + +------+ + Encounter Details +--------+ + + + + | Date | Type | Department | Care Team | Description | +--------+ + + + + | 09/13/ | Abstract | [facility] | Arlene Ramirez | | | 2015 | | [facility] | P, RN | | | | | [facility] [address] | | | | | [address] | | | | | | [place] [address] | | | | | | [phone] | | | +--------+ + + + [...]
--- OUTSIDE RECORDS SUMMARY | ~2019-09-04 | XMS | Encounter Summary ---
Demographics + + + | Address | [address] | | | [place] [address] | + + + | Home Phone | | + + + | Preferred Language | Unknown | + + + | Marital Status | | + + + | Jew Affiliation | 1013 | + + + | Race | Unknown | + + + | Ethnic Group | Unknown | + + + Author + + + | Author | [facility] | | | and [place] | + + + | Organization | [facility] | | | [...] Team Providers + +------+ + | Care Dishwasher Preparer Name | Role | Phone | + +------+ + | Yoav Bobby MD | PCP | | + +------+ + Encounter Details +--------+ + + + + | Date | Type | Department | Care Team | Description | +--------+ + + + + | 10/10/ | Orders Only | [facility] | Kenya Tariq | Abnormal mammogram | | 2017 | | [facility] | M, MD [address] | (Primary Dx) | | | | [facility] [address] | [place], [place] | | | | | [address] | [address] | | | | | [place] [address] | | | | | | [phone] | | | +--------+ + + + [...] | | +--------+ + + + + + +---------+--------+ + + | Name | Type | Priori | Associated Diagnoses | Order Schedule | | | | ty | | | + +---------+--------+ + + | EDITH Breast Biopsy | Imaging | Routin | Abnormal mammogram | Expected: | | Left | | e | | 08/02/2017, Expires: | | | | | | 10/02/2018 | + +---------+--------+ + + documented as of this encounter Visit Diagnoses + + | Diagnosis | + + | Abnormal mammogram - Primary Abnormal mammogram, unspecified | + + documented in this encounter"
--- OUTSIDE RECORDS SUMMARY | ~2019-09-04 | XMS | Clinical Summary ---
Demographics + + + | Address | [address] | | | [place] [address] | + + + | Home Phone | | + + + | Preferred Language | Unknown | + + + | Marital Status | | + + + | Pentecostal Affiliation | 1013 | + + + | Race | Unknown | + + + | Ethnic Group | Unknown | + + + Author + + + | Author | [facility] | | | and [place] | + + + | Organization | [facility] | | [...] Team Providers + +------+ + | Care Remelt Sugar Boiler Name | Role | Phone | + +------+ + | Reilly Garcia MD | PCP | | + +------+ + Allergies + + + + + + | Active Allergy | Reactions | Severity | Noted | Comments | | | | | Date | | + + + + + + | Cephalosporins | | | 09/13/20 | | | | | | 16 | | + + + + + + | Dexamethasone | Other (See Comments) | Medium | 10/17/20 | Listed by PCP | | | | | 18 | | + + + + + + | Diclofenac | Other (See Comments) | Medium | 10/17/20 | Listed by PCP | | | | | 18 | | + + + + + + | Hydrocodone-Acetamin | Other (See Comments) | Medium | 10/17/20 | Listed by PCP | | ophen | | | 18 | | + + + + + + | Levofloxacin | Other (See Comments) | Medium | 10/17/20 | Listed by PCP | | | | | 18 | | + + + + + + | Nsaids | Unknown | | 09/13/20 | | | | | | 16 | | + + + + + + | Penicillins | Other (See Comments) | Medium | 09/13/20 | Listed by PCP | | | | | 16 | | + + + + + + | Quinolones | | | 09/13/20 | | | | | | 16 | | + + + + + + | Sulfa Antibiotics | Unknown, Other (See | Medium | 09/13/20 | Listed by PCP | | | Comments) | | 16 | | + + + + + + Medications + + + +---------+------+------+-------+ | Medication | Sig | Dispensed | Refills | Star | End | Statu | | | | | | t | Date | s | | | | | | Date | | | + + + +---------+------+------+-------+ | | Take 1 tablet by | | 0 | | | Activ | | acetaminophen-codein | mouth every 4 hours | | | | | e | | e (TYLENOL #3) | as needed for Pain. | | | | | | | 300-30 mg per tablet | | | | | | | + + + +---------+------+------+-------+ | loratadine | Take 10 mg by mouth | | 0 | | | Activ | | (ALLERGY RELIEF) 10 | Daily. | | | | | e | | mg tablet | | | | | | | + + + +---------+------+------+-------+ | levothyroxine | Take 100 mcg by | | 0 | | | Activ | | (SYNTHROID, | mouth every morning | | | | | e | | LEVOTHROID) 100 mcg | (before breakfast). | | | | | | | tablet | | | | | | | + + + +---------+------+------+-------+ | Vitamin D, | Take by mouth. | | 0 | | | Activ | | Cholecalciferol, | | | | | | e | | 1000 UNITS TABS | | | | | | | + + + +---------+------+------+-------+ | fluticasone | 1 spray by Nasal | | 0 | | | Activ | | (FLONASE) 50 | route Daily. | | | | | e | | mcg/nasal spray | | | | | | | + + + +---------+------+------+-------+ | cetirizine | Take 10 mg by mouth | | 0 | | | Activ | | (ZYRTEC) 10 mg | Daily. | | | | | e | | tablet | | | | | | | + + + +---------+------+------+-------+ | donepezil | donepezil 5 mg | | 0 | | | Activ | | (ARICEPT) 5 mg | tablet | | | | | e | | tablet | | | | | | | + + + +---------+------+------+-------+ | doxycycline | doxycycline hyclate | | 0 | | | Activ | | (VIBRAMYCIN) 100 mg | 100 mg tablet | | | | | e | | tablet | | | | | | | + + + +---------+------+------+-------+ | famotidine | famotidine 40 mg | | 0 | | | Activ | | (PEPCID) 40 MG | tablet | | | | | e | | tablet | | | | | | | + + + +---------+------+------+-------+ | influenza | Fluzone High-Dose | | 0 | | | Activ | | high-dose (FLUZONE | 8116-1341 (PF) 180 | | | | | e | | HIGH-DOSE) 0.5 mL | mcg/0.5 mL | | | | | | | vaccine injection | intramuscular | | | | | | | | syringe | | | | | | + + + +---------+------+------+-------+ | lovastatin | lovastatin 40 mg | | 0 | | | Activ | | (MEVACOR) 40 MG | tablet | | | | | e | | tablet | | | | | | | + + + +---------+------+------+-------+ | magnesium oxide | Take 400 mg by mouth | | 0 | | | Activ | | (MAG-OX) 400 mg | Daily. | | | | | e | | tablet | | | | | | | + + + +---------+------+------+-------+ | metoprolol | Take 1 tablet by | | 0 | 11/0 | | Activ | | succinate | mouth Daily. | | | /20 | | e | | (TOPROL-XL) 50 mg 24 | | | | 18 | | | | hr tablet | | | | | | | + + + +---------+------+------+-------+ | Naproxen Sodium | Take 220 mg by | | 0 | | | Activ | | (ALEVE) 220 MG CAPS | mouth. | | | | | e | + + + +---------+------+------+-------+ | oxybutynin | oxybutynin chloride | | 0 | | | Activ | | (DITROPAN) 5 mg | 5 mg tablet | | | | | e | | tablet | | | | | | | + + + +---------+------+------+-------+ | pneumococcal | Prevnar 13 (PF) 0.5 | | 0 | | | Activ | | (PREVNAR 13) vaccine | mL intramuscular | | | | | e | | injection | syringe | | | | | | + + + +---------+------+------+-------+ | potassium chloride | Take 10 mEq by mouth | | 0 | | | Activ | | (KLOR-CON) 10 MEQ | Daily. | | | | | e | | ER tablet | | | | | | | + + + +---------+------+------+-------+ | sucralfate | Take 1 g by mouth 4 | | 0 | | | Activ | | (CARAFATE) 1 g | times daily. | | | | | e | | tablet | | | | | | | + + + +---------+------+------+-------+ | levothyroxine | Take 88 mcg by mouth | | 0 | | | Activ | | (SYNTHROID) 100 mcg | Daily. | | | | | e | | tablet | | | | | | | + + + +---------+------+------+-------+ | levothyroxine | levothyroxine 88 mcg | | 0 | | | Activ | | (SYNTHROID) 88 mcg | tablet | | | | | e | | tablet | | | | | | | + + + +---------+------+------+-------+ | | acetaminophen 300 | | 0 | | | Activ | | acetaminophen-codein | mg-codeine 30 mg | | | | | e | | e (TYLENOL #3) | tablet | | | | | | | 300-30 MG per tablet | | | | | | | + + + +---------+------+------+-------+ | Cetirizine HCl (RA | Allergy Relief | | 0 | | | Activ | | CETIRIZINE PO) | (cetirizine) | | | | | e | + + + +---------+------+------+-------+ | iron | Take 25 mg by mouth. | | 0 | | | Activ | | polysaccharides | | | | | | e | | (POLY-IRON 150) 150 | | | | | | | | MG capsule | | | | | | | + + + +---------+------+------+-------+ | omeprazole | omeprazole 20 mg | | 0 | | | Activ | | (PRILOSEC) 20 mg | capsule,delayed | | | | | e | | capsule | release | | | | | | + + + +---------+------+------+-------+ | nitrofurantoin | nitrofurantoin | | 0 | | | Activ | | (MACRODANTIN) 100 MG | monohydrate/macrocry | | | | | e | | capsule | stals 100 mg capsule | | | | | | + + + +---------+------+------+-------+ | cholecalciferol | Take by mouth. | | 0 | | | Activ | | (VITAMIN D-3) 1,000 | | | | | | e | | units capsule | | | | | | | + + + +---------+------+------+-------+ | potassium chloride | Take 1 tablet by | | 5 | 07/0 | | Activ | | (KLOR-CON) 10 mEq | mouth 2 times daily. | | | 1/20 | | e | | CR tablet | With food | | | 19 | | | + + + +---------+------+------+-------+ | metoprolol | | | 0 | 10/ | | Activ | | succinate | | | | 4/20 | | e | | (TOPROL-XL) 100 mg | | | | 18 | | | | ER tablet | | | | | | | + + + +---------+------+------+-------+ Active Problems + + + | Problem | Noted Date | + + + | Gastroesophageal reflux disease | 05/21/2019 | + + + | Hypercholesterolemia | 08/09/2018 | + + + | Hypothyroidism | 08/09/2018 | + + + | Syncope | 08/09/2018 | + + + | Dementia | 04/03/2018 | + + + | Malignant neoplasm of upper-outer quadrant of left female breast | 09/14/2016 | + + + + + | Overview: ACTIVE DIAGNOSIS: pT1, pN0 M0 Stage I triple | | negative LEFT breast cancer.Overview: Overview: ACTIVE DIAGNOSIS: | | pT1, pN0 M0 Stage I triple negative LEFT breast cancer.Last | | Assessment & Plan: Brief, 30 minute office encounter with Thea Lloyd | | Sotero Alejandro" and her step-daughter Viviana. We reviewed the history | | of mammographically detected, Stage I triple negative LEFT | | breast cancer, High Grade, with positive expression of Ki-67, | | Tumor > 1 cmWe reviewed the pathophysiology of triple-negative | | LEFT breast cancer, as it relates to insensitivity to adjuvant | | hormonal therapy "pills."We reviewed the NCCN Guidelines, version | | 2.2016 which lists Adjuvant chemotherapy as a category 1 | | recommendation; page BINV-8.We reviewed the potential benefit of | | adjuvant chemotherapy which is a decrease of breast cancer | | related of 3% in 5 years and 4% in 10 years.We discussed | | potential chemotherapy program of Taxotere 600 mg/m and | | cyclophosphamide 600 mg/m given intravenously once every 21 | | days for four treatments. Due to the patient's advance age, | | Neulasta would be given with each cycle for growth factor | | support.We reviewed the potential side effects of | | Taxotere/cyclophosphamide chemotherapy which include but are not | | limited to; nausea, vomiting, hair loss (temporary), fatigue, and | | low blood counts which can rarely lead to life-threatening | | infections.We reviewed the options of omitting chemotherapy and | | proceeding directly with LEFT breast radiation therapy as part of | | breast conservation.Both Eliz and Viviana has all of their | | questions answered to their satisfaction, and wish to discuss | | their options with family members before proceeding. They will | | meet with Dr. Kenya Lucio to discuss radiation therapy | | today. Last Assessment & Plan: Brief, 30 minute office | | encounter with Thea Alejandro" and her step-daughter Viviana. | | We reviewed the history of mammographically detected, Stage I | | triple negative LEFT breast cancer, High Grade, with positive | | expression of Ki-67, Tumor > 1 cmWe reviewed the pathophysiology | | of triple-negative LEFT breast cancer, as it relates to | | insensitivity to adjuvant hormonal therapy "pills."We reviewed | | the NCCN Guidelines, version 2.2016 which lists Adjuvant | | chemotherapy as a category 1 recommendation; page BINV-8.We | | reviewed the potential benefit of adjuvant chemotherapy which is | | a decrease of breast cancer related of 3% in 5 years and 4% | | in 10 years.We discussed potential chemotherapy program of | | Taxotere 600 mg/m and cyclophosphamide 600 mg/m given | | intravenously once every 21 days for four treatments. Due to the | | patient's advance age, Neulasta would be given with each cycle | | for growth factor support.We reviewed the potential side effects | | of Taxotere/cyclophosphamide chemotherapy which include but are | | not limited to; nausea, vomiting, hair loss (temporary), fatigue, | | and low blood counts which can rarely lead to life-threatening | | infections.We reviewed the options of omitting chemotherapy and | | proceeding directly with LEFT breast radiation therapy as part of | | breast conservation.Both Eliz and Viviana has all of their | | questions answered to their satisfaction, and wish to discuss | | their options with family members before proceeding. They will | | meet with Dr. Kenya Lucio to discuss radiation therapy | | today. | + + + + + | Primary malignant neoplasm of female breast | 07/14/2016 | + + + Encounters +--------+ + + + + | Date | Type | Specialty | Care Team | Description | +--------+ + + + + | 08/30/ | Telephone | Oncology | Kenya Tariq | Care Coordination | | 2018 | | | MD [facility] | | +--------+ + + + + | 06/11/ | Telephone | Radiation Oncology | Kenya Tariq | Care Coordination | | 2018 | | | MD [facility] | | +--------+ + + + + from Last 3 Months Family History + + +------+ + | Medical History | Relation | Name | Comments | + + +------+ + | Aneurysm | Brother | | | + + +------+ + | Alzheimer's disease | Brother | | | + + +------+ + | Heart disease | Father | | | + + +------+ + | Stroke | Mother | | | + + +------+ + | Alzheimer's disease | Sister | | | + + +------+ + + +------+ + + | Relation | Name | Status | Comments | + +------+ + + | Brother | | | | + +------+ + + | Brother | | Alive | | + +------+ + + | Father | | | | + +------+ + + | Father | | | | + +------+ + + | Mother | | | | + +------+ + + | Mother | | | | + +------+ + + | Sister | | | | + +------+ + + Social History + +-------+ +--------+------+ [...] recent travel history available. | + + Last Filed Vital Signs + + + + + | Vital Sign | Reading | Time Taken | Comments | + + + + + | Blood Pressure | 126/70 | 10/30/2018 2:11 PM | | | | | PST | | + + + + + | Pulse | 80 | 10/30/2018 2:11 PM | | | | | PST | | + + + + + | Temperature | 36.2 C (97.1 F) | 02/10/2018 10:49 AM | | | | | PDT | | + + + + + | Respiratory Rate | 16 | 02/10/2018 10:49 AM | | | | | PDT | | + + + + + | Oxygen Saturation | 96% | 02/10/2018 10:49 AM | | | | | PDT | | + + + + + | Inhaled Oxygen | - | - | | | Concentration | | | | + + + + + | Weight | 79.8 kg (175 lb 14.4 | 10/30/2018 2:11 PM | | | | oz) | PST | | + + + + + | Height | 154.9 cm (5' 1") | 10/30/2018 2:11 PM | | | | | PST | | + + + + + | Body Mass Index | 33.24 | 10/30/2018 2:11 PM | | | | | PST | | + + + + + Plan of Treatment +--------+ + + + + | Date | Type | Specialty | Care Team | Description | +--------+ + + + + | 10/23/ | Appointment | Radiation Oncology | | | | 2018 | | | | | +--------+ + + + + + + + + + | Health Maintenance | Due Date | Last Done | Comments | + + + + + | Vaccine: | | | | | Dtap/Tdap/Td (1 - | 3 | | | | Tdap) | | | | + + + + + | Vaccine: Zoster (1 | | | | | of 2) | 4 | | | + + + + + | Vaccine: | | | | | Pneumococcal 65+ (1 | 9 | | | | of 2 - PCV13) | | | | + + + + + | Adult Annual | | | | | Wellness Visit | 5 | | | + + + + + | Vaccine: Influenza | | | | | (#1) | 9 | | | + + + + + | Breast Cancer | | 08/25/2018, 06/25/2016, | | | Screening | 0 | 10/15/2014, Additional history | | | | | exists | | + + + + + | Colorectal Cancer | | 10/24/2010 | | | Screening | 1 | | | | (Colonoscopy) | | | | + + + + + Results Not on filefrom Last 3 Months Insurance + +--------+ +--------+-------+---------+--------+ | Payer | Benefi | Subscriber | Effect | Phone | Address | Type | | | t Plan | ID | erin | | | | | | / | | Dates | | | | | | Group | | | | | | + +--------+ +--------+-------+---------+--------+ | [employer] | [employer] | [id number] | 10/24/19 | | | Medica | | | HEALTH | | 17-Pre | | | re | | | MDCR | | sent | | | | + +--------+ +--------+-------+---------+--------+ + +--------+ +--------+ + + | Guarantor Name | Accoun | Relation to | Date | Phone | Billing Address | | | t Type | Patient | of | | | | | | | | | | + +--------+ +--------+ + + | Thea Bey | Person | Self [birth year] | | | | al/Fam | | 1945 | [phone] | [place], [place] | | | kayce | | | [address] (Home) | [address] | + +--------+ +--------+ + + Advance Directives + + + + + | Type | Date Recorded | Patient | Explanation | | | | Rock Contractor | | + + + + + | Power of | | | | | Braze Operator | | | | + + + + + | Advance | 09/27/2016 8:39 | | | | Directive | AM | | | + + + + +
--- OUTSIDE RECORDS SUMMARY | ~2019-09-04 | XMS | Encounter Summary ---
Demographics + + + | Address | [address] | | | [place] [address] | + + + | Home Phone | | + + + | Preferred Language | Unknown | + + + | Marital Status | | + + + | Congregational Affiliation | 1013 | + + + | Race | Unknown | + + + | Ethnic Group | Unknown | + + + Author + + + | Author | [facility] | | | and [place] | + + + | Organization | [facility] | | | [...] Team Providers + +------+ + | Care Public Defender Name | Role | Phone | + +------+ + | Yoav Bobby MD | PCP | | + +------+ + Encounter Details +--------+ + + + + | Date | Type | Department | Care Team | Description | +--------+ + + + + | 09/13/ | Abstract | [facility] | Cheo Veliz, | | | 2015 | | SURGERY [address] | , FACS [address] | | | | | [address] [place], [place] | [place], [place] | | | | | [address] | [address] | | | | | [phone] | | | +--------+ + + + [...]
--- OUTSIDE RECORDS SUMMARY | ~2019-09-04 | XMS | Encounter Summary ---
Demographics + + + | Address | [address] | | | [place] [address] | + + + | Home Phone | | + + + | Preferred Language | Unknown | + + + | Marital Status | | + + + | Restoration Affiliation | 1013 | + + + | Race | Unknown | + + + | Ethnic Group | Unknown | + + + Author + + + | Author | [facility] | | | and [place] | + + + | Organization | [facility] | | | and [...] Team Providers + +------+ + | Care Optical Assistant Name | Role | Phone | + +------+ + | Reilly Garcia MD | PCP | | + +------+ + Reason for Visit + + + | Reason | Comments | + + + | Care Coordination | | + + + Encounter Details +--------+ + + + + | Date | Type | Department | Care Team | Description | +--------+ + + + + | 06/11/ | Telephone | [facility] | Kenya Tariq | Care Coordination | | 2019 | | [facility] | MD [facility] [address] | | | | | [facility] [address] | [address] [place], [place] | | | | | [address] | [address] | | | | | [place] [address] | | | | | | [phone] | | | +--------+ + + + [...]
--- OUTSIDE RECORDS SUMMARY | ~2019-09-04 | XMS | Encounter Summary ---
Demographics + + + | Address | [address] | | | [place] [address] | + + + | Home Phone | | + + + | Preferred Language | Unknown | + + + | Marital Status | | + + + | Sabianism Affiliation | 1013 | + + + | Race | Unknown | + + + | Ethnic Group | Unknown | + + + Author + + + | Author | [facility] | | | and [place] | + + + | Organization | [facility] | | | [...] Team Providers + +------+ + | Care Machine Presser Name | Role | Phone | + +------+ + | Yoav Bobby MD | PCP | | + +------+ + Reason for Visit + + + | Reason | Comments | + + + | Consultation | | + + + Evaluate & Treat (Routine) +--------+--------+ + + + + | Status | Reason | Specialty | Diagnoses / | Referred By | Referred To | | | | | Procedures | Contact | Contact | +--------+--------+ + + + + | Closed | | Medical | Diagnoses | Noemi, | | | | | Oncology / | Malignant | Roshan Grover | Marifer, | | | | Oncology | neoplasm of | [address] | Elicia Guidry MD | | | | | upper-outer | [address] | [address] | | | | | quadrant of | [address] [place] | | | | | left female | [place], | [place], [place] | | | | | breast (HCC) | [place] [address] | [address] Phone: | | | | | | Phone: | [phone] | | | | | Consult/[place] | [phone] | Fax: | | | | | srt/[place] | Fax: | [phone] | | | | | (Breast | [phone] | | | | | | Conference) | | | | | | | (requested) | | | | | | | Procedures | | | | | | | [place] OFFICE | | | | | | | OUTPATIENT | | | | | | | VISIT 25 | | | | | | | MINUTES [facility] | | | | | | | MED ONC NEW | | | | | | | PATIENT | | | +--------+--------+ + + + + Encounter Details +--------+ + + + + | Date | Type | Department | Care Team | Description | +--------+ + + + + | 09/14/ | Hospital | [facility] | [facility], | Malignant neoplasm | | 2016 | Encounter | MED CTR MED[facility] | Elicia Guidry MD [address] | of upper-outer | | | | [facility]Y CLIN[facility] [address] [place] | quadrant of left | | | | [address] [place] | [place] [address] | female breast (HCC) | | | | [place] [address] | [phone] | (Primary Dx) | | | | [phone] | | | +--------+ + + + [...] + + documented as of this encounter Last Filed Vital Signs + + + + + | Vital Sign | Reading | Time Taken | Comments | + + + + + | Blood Pressure | 125/70 | 09/14/2016 1:52 PM | | | | | PST | | + + + + + | Pulse | 111 | 09/14/2016 1:52 PM | | | | | PST | | + + + + + | Temperature | 37.1 C (98.8 F) | 09/14/2016 1:52 PM | | | | | PST | | + + + + + | Respiratory Rate | 18 | 09/14/2016 1:52 PM | | | | | PST | | + + + + + | Oxygen Saturation | 94% | 09/14/2016 1:52 PM | | | | | PST | | + + + + + | Inhaled Oxygen | - | - | | | Concentration | | | | + + + + + | Weight | 76.3 kg (168 lb 3.2 | 09/14/2016 1:52 PM | | | | oz) | PST | | + + + + + | Height | 154.9 cm (5' 1") | 09/14/2016 1:52 PM | | | | | PST | | + + + + + | Body Mass Index | 31.78 | 09/14/2016 1:52 PM | | | | | PST | | + + + + + documented in this encounter Discharge Instructions Instructions Elicia Bob MD - 09/14/2016Eliz has triple negative breast cancer. This means that the hormone blocking pills will not give you any benefit. Ki-67 is high and Grade 3 is high grade, so it can come back. What can we do to prevent the cancer coming back; Chemotherapy Radiation therapy Intravenous chemotherapy will decrease the chance of the breast cancer coming back and taki ng your life by 4% in 10 years. Another way of looking at this is that there is a 59% of ralf ing to by 82 if you don't take chemotherapy and a 64% chance of living to be 82 if you do ta ke chemotherapy. Intravenous chemotherapy has side effects; nausea, vomiting, hair loss, fatigue, bone pain, low blood counts that can lead to serious infections. Chemotherapy is given four times over 12 weeks. documented in this encounter Medications at Time [...] documented as of this encounter Progress Notes Elicia Bob MD - 09/14/2016 1:56 PM PSTFormatting of this note might be differe nt from the original. Hematology/Oncology Progress Note [facility] MD Pt. Name/Age/: Thea Bey 71 y.o. 1945 [facility]. Record Number: [id number] Date of admission: 09/14/2016 Identifying Statement: Thea Bey is a 71 y.o. 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 The patient chart and medications were reviewed in detail and the patient was seen and exam ined. History of Present Illnesses, their Current Assessments and Plans: Problems That Were Updated This Visit Malignant neoplasm of upper-outer quadrant of left female breast Overview ACTIVE DIAGNOSIS: pT1, pN0 M0 Stage I triple negative LEFT breast cancer. Current Assessment & Plan Brief, 30 minute office encounter with Thea Bey "Eliz" and her step-daughter Viviana. We reviewed the history of mammographically detected, Stage I triple negative LEFT breast c ancer, High Grade, with positive expression of Ki-67, Tumor > 1 cm We reviewed the pathophysiology of triple-negative LEFT breast cancer, as it relates to ins ensitivity to adjuvant hormonal therapy "pills." We reviewed the NCCN Guidelines, version 2.2016 which lists Adjuvant chemotherapy as a patricia gory 1 recommendation; page BINV-8. We reviewed the potential benefit of adjuvant chemotherapy which is a decrease of breast ca ncer related of 3% in 5 years and 4% in 10 years. We discussed potential chemotherapy program of Taxotere 600 mg/m and cyclophosphamide 600 mg/m given intravenously once every 21 days for four treatments. Due to the patient's adv ance age, Neulasta would be given with each cycle for growth factor support. We reviewed the potential side effects of Taxotere/cyclophosphamide chemotherapy which incl ude but are not limited to; nausea, vomiting, hair loss (temporary), fatigue, and low blood counts which can rarely lead to life-threatening infections. We reviewed the options of omitting chemotherapy and proceeding directly with LEFT breast r adiation therapy as part of breast conservation. Both Eliz and Viviana has all of their questions answered to their satisfaction, and wish to d iscuss their options with family members before proceeding. They will meet with Dr. Kenay Lucio to discuss radiation therapy today. Review of Systems: Constitutional: Reports energy level has been low lately and she has been feeling like she has had a cold for about 3 days. Denies fatigue. Denies high fevers, shaking chills, anorexi a, nausea, vomiting, weight loss, or night sweats. Appetite without changes. Ear, Nose, Mouth, Throat: Denies odynophagia, dysphagia, or tinnitus. Cardiovascular: Denies shortness of breath, dyspnea on exertion, chest pain, palpitations o r orthopnea. Respiratory: Reports a slight non-productive cough with this cold X 3 days. Denies hemoptys is, or sputum production. Gastrointestinal: Denies abdominal pain, constipation, diarrhea, melena, or bright red bloo d per rectum. Genitourinary: Denies hematuria or dysuria. Musculoskeletal: Reports arthritic pain in her hips occasionally. Neurologic: Denies headache, visual changes, or numbness/tingling of the extremities. Endocrine: Denies peripheral edema or heat/cold intolerance. Hematologic: Denies spontaneous bruising or bleeding. Integumentary: Denies rash, wounds or other skin concerns. Pain: Denies pain. ROS: otherwise normal Note: Here for consultation with Dr. Bob for Left Breast Cancer referred by Dr. Lexi barker in [place], [place]. My chart: Pending Review of systems as above otherwise negative Scheduled Medications: Current Outpatient Prescriptions Medication Sig Dispense Refill acetaminophen-codeine (TYLENOL #3) 300-30 mg per tablet Take 1 tablet by mouth every 4 hours as needed for Pain. fluticasone (FLONASE) 50 mcg/nasal spray 1 spray by Nasal route Daily. levothyroxine (SYNTHROID, LEVOTHROID) 100 mcg tablet Take 100 mcg by mouth every mornin g (before breakfast). loratadine (ALLERGY RELIEF) 10 mg tablet Take 10 mg by mouth Daily. lovastatin (MEVACOR) 40 MG tablet Take 40 mg by mouth nightly. omeprazole (PRILOSEC) 20 mg capsule Take 20 mg by mouth every morning (before breakfast ). Vitamin D, Cholecalciferol, 1000 UNITS TABS Take by mouth. No current facility-administered medications for this encounter. Allergies: Allergy: Allergies Allergen Reactions Cephalosporins Nsaids Penicillins Quinolones Sulfa Antibiotics Past Medical and Surgical History, Social History and Problems: Past Medical History Diagnosis Date Allergic rhinitis Esophageal reflux Hyperlipidemia Hypothyroidism Impaired fasting glucose Lumbago Menopausal disorder Osteoarthritis Past Surgical History Procedure Laterality Date Knee arthroplasty Right 09/2015 Tonsillectomy Hysterectomy Breast lumpectomy 07/29/2016 Colonoscopy 2011 Thumb surgery Social History Social History Marital Status: Spouse Name: N/A Number of Children: N/A Years of Education: N/A Occupational History Not on file. Social History Main Topics Smoking status: Never Smoker Smokeless tobacco: Never Used Alcohol Use: No Drug Use: No Sexual Activity: Not on file Other Topics Concern Not on file Social History Narrative Patient Active Problem List Diagnosis Malignant neoplasm of upper-outer quadrant of left female breast Objectives: Temp: 37.1 C (98.8 F) BP: 125/70 mmHg Pulse: 111 Resp: 18 SpO2: 94 % on Min/Max Temp past 24 hours:Temp Av.1 C (98.8 F) Min: 37.1 C (98.8 F) Max: 3 7.1 C (98.8 F) No intake or output data in the 24 hours ending 09/14/16 1456 Wt. Admission: Weight: 76.295 kg (168 lb 3.2 oz) Wt. Current: Weight: 76.295 kg (168 lb 3.2 oz) Wt Readings from Last 3 Encounters: 09/14/16 76.295 kg (168 lb 3.2 oz) Physical Exam: General: The patient is alert and oriented. No acute distress. Healthy adult female in no acute distress was not examined in detail, as the 30 minute enco unter was spent in counseling. Psychiatric: Normal mood and affect. ECOG Performance Status [x] 0 [] 1 [] 2 []3 [] 4 ECOG PERFORMANCE STATUS* Grade ECOG Karnofsky 0 Fully active, able to carry on all pre-disease performance without restriction. 90 - 100 1 Restricted in physically strenuous activity but ambulatory and able to carry out work of a light or sedentary nature, e.g., light house work, office work 70 - 80 2 Ambulatory and capable of all selfcare but unable to carry out any work activ ities. Up and about more than 50% of waking hours 50 - 60 3 Capable of only limited selfcare, confined to bed or chair more than 50% of w aking hours 30 - 40 4 Completely disabled. Cannot carry on any selfcare. Totally confined to bed or chair 10 - 20 * As published in Am. J. Clin. Oncol.: Mich Llanes., Kirk, R.H., Satish Soto., Jeremiah Vaca., Isidro, TCarolyn., Lillian, ESonuT., Jenny, P .P.: Toxicity And Response Criteria Of The Eastern Cooperative Oncology Group. Am J Clin Onc ol 5:649-655, 1982. The ECOG Performance Status is in the public domain therefore available for public use. To duplicate the scale, please cite the reference above and credit the Eastern Cooperative Onco logy Group, Elicia Oliveira M.D., Group Chair Diagnostic studies: Available data and images were reviewed personally. See reports. Significant results and findings are addressed here or in the Assessment and Plan. Pharmacovigilance: Palliative Care: Procedure: ELICIA BOB MD Portions of this chart may have been created with [employer] voice recognition software. Occasi onal wrong-word or sound-alike substitutions may have occurred due to the inherent harrison itations of voice recognition software. Please read the chart carefully and recognize, using context, where these substitutions have occurred. documented in t his encounter Plan of Treatment +--------+ + + [...] + | IMAGING REPORT - | | 07/29/2016 | | Results for this | | EXTERNAL SCAN | | 12:00 AM | | procedure are in the | | | | PDT | | results section. | + +--------+ + + + | IMAGING REPORT - | | 07/29/2016 | | Results for this | | EXTERNAL SCAN | | 12:00 AM | | procedure are in the | | | | PDT | | results section. | + +--------+ + + + | IMAGING REPORT - | | 07/29/2016 | | Results for this | | EXTERNAL SCAN | | 12:00 AM | | procedure are in the | | | | PDT | | results section. | + +--------+ + + + | PATHOLOGY - EXTERNAL | | 07/29/2016 | | Results for this | | SCAN | | 12:00 AM | | procedure are in the | | | | PDT | | results section. | + +--------+ + + + | IMAGING REPORT - | | 07/26/2016 | | Results for this | | EXTERNAL SCAN | | 12:00 AM | | procedure are in the | | | | PDT | | results section. | + +--------+ + + + | LABS - EXTERNAL SCAN | | 07/26/2016 | | Results for this | | | | 12:00 AM | | procedure are in the | | | | PDT | | results section. | + +--------+ + + + | IMAGING REPORT - | | 07/08/2016 | | Results for this | | EXTERNAL SCAN | | 12:00 AM | | procedure are in the | | | | PDT | | results section. | + +--------+ + + + | PATHOLOGY - EXTERNAL | | 07/08/2016 | | Results for this | | SCAN | | 12:00 AM | | procedure are in the | | | | PDT | | results section. | + +--------+ + + + | IMAGING REPORT - | | 07/05/2016 | | Results for this | | EXTERNAL SCAN | | 12:00 AM | | procedure are in the | | | | PDT | | results section. | + +--------+ + + + | IMAGING REPORT - | | 06/25/2016 | | Results for this | | EXTERNAL SCAN | | 12:00 AM | | procedure are in the | | | | PDT | | results section. | + +--------+ + + + documented in this encounter Results PATHOLOGY - EXTERNAL SCAN (07/29/2016 12:00 AM PDT) + + + | Narrative | Performed At | + + + | Ordered by an | | | unspecified provider. | | + + + IMAGING REPORT - EXTERNAL SCAN (07/29/2016 12:00 AM PDT) + + + | Narrative | Performed At | + + + | Ordered by an | | | unspecified provider. | | + + + IMAGING REPORT - EXTERNAL SCAN (07/29/2016 12:00 AM PDT) + + + | Narrative | Performed At | + + + | Ordered by an | | | unspecified provider. | | + + + IMAGING REPORT - EXTERNAL SCAN (07/29/2016 12:00 AM PDT) + + + | Narrative | Performed At | + + + | Ordered by an | | | unspecified provider. | | + + + LABS - EXTERNAL SCAN (07/26/2016 12:00 AM PDT) + + + | Narrative | Performed At | + + + | Ordered by an | | | unspecified provider. | | + + + IMAGING REPORT - EXTERNAL SCAN (07/26/2016 12:00 AM PDT) + + + | Narrative | Performed At | + + + | Ordered by an | | | unspecified provider. | | + + + PATHOLOGY - EXTERNAL SCAN (07/08/2016 12:00 AM PDT) + + + | Narrative | Performed At | + + + | Ordered by an | | | unspecified provider. | | + + + IMAGING REPORT - EXTERNAL SCAN (07/08/2016 12:00 AM PDT) + + + | Narrative | Performed At | + + + | Ordered by an | | | unspecified provider. | | + + + IMAGING REPORT - EXTERNAL SCAN (07/05/2016 12:00 AM PDT) + + + | Narrative | Performed At | + + + | Ordered by an | | | unspecified provider. | | + + + IMAGING REPORT - EXTERNAL SCAN (06/25/2016 12:00 AM PDT) + + + | Narrative | Performed At | + + + | Ordered by an | | | unspecified provider. | | + + + documented in this encounter Visit Diagnoses + + | Diagnosis | + + | Malignant neoplasm of upper-outer quadrant of left female breast (HCC) - Primary | | Malignant neoplasm of upper-outer quadrant of female breast | + + documented in this encounter
--- OUTSIDE RECORDS SUMMARY | ~2019-09-04 | XMS | Encounter Summary ---
Demographics + + + | Address | [address] | | | [place] [address] | + + + | Home Phone | | + + + | Preferred Language | Unknown | + + + | Marital Status | | + + + | Hinduism Affiliation | 1013 | + + + | Race | Unknown | + + + | Ethnic Group | Unknown | + + + Author + + + | Author | [facility] | | | and [place] | + + + | Organization | [facility] | | | [...] Team Providers + +------+ + | Care Mechanical Maintenance Engineer Name | Role | Phone | [...] | | | ONCOLOGY CLINIC [address] | [place], [place] | | | | | [address] | [address] | | | | | [place] [address] | | | | | | [phone] | | | +--------+ + + + [...]
--- OUTSIDE RECORDS SUMMARY | ~2019-09-04 | XMS | Encounter Summary ---
Demographics + + + | Address | [address] | | | [place] [address] | + + + | Home Phone | | + + + | Preferred Language | Unknown | + + + | Marital Status | | + + + | Yarsani Affiliation | 1013 | + + + | Race | Unknown | + + + | Ethnic Group | Unknown | + + + Author + + + | Author | [facility] | | | and [place] | + + + | Organization | [facility] | | | [...] Team Providers + +------+ + | Care Alarm Service Technician Name | Role | Phone | + [...] | | | breast (HCC) | [place] [address] | [address] Phone: | | | | | | Phone: | [phone] | | | | | Consult/[place] | [phone] | Fax: | | | | | srt/[place] | Fax: | [phone] | | | | | (Breast | [phone] | | | | | | Conference) | | | | | | | (requested) | | | | | | | Procedures | | | | | | | [place] OFFICE | | | | | | [...] + + | 09/14/ | Hospital | [facility] | Malignant neoplasm | | 2016 | Encounter | MED CTR MEDICAL | Elicia Guidry MD [address] | of upper-outer | | | | ONCOLOGY CLINIC [address] | [address] [place] | quadrant of left | | | | [address] [place] | [place] [address] | female breast (HCC) | | | | [place] [address] | [phone] | (Primary Dx) | | | | [phone] | | | +--------+ + + + [...] nt from the original. Hematology/Oncology Progress Note [facility] [place] Pt. Name/Age/: Thea Bey 71 y.o. 1945 [facility]. Record Number: [id number] Date of admission: 09/14/2016 Identifying Statement: Thea Bey is a 71 y.o. female from [address] [place] [address] with Stage I, Triple Negative LEFT breast [...] before proceeding. They will meet with Dr. Kenya Lucio to discuss radiation therapy today. Review [...] Cancer referred by Dr. Lexi barker in [place], [place]. My chart: Pending Review of systems [...] R.H., Satish Soto., Jeremiah Vaca., Isidro, TCarolyn., Lililan, ESonuT., Jenny, P .P.: Toxicity And Response [...] this chart may have been created with [employer] voice recognition software. Occasi onal wrong-word or [...]
--- OUTSIDE RECORDS SUMMARY | ~2019-09-04 | XMS | Encounter Summary ---
Demographics + + + | Address | [address] | | | [place] [address] | + + + | Home Phone | | + + + | Preferred Language | Unknown | + + + | Marital Status | | + + + | Alevism Affiliation | 1013 | + + + [...] Team Providers + +------+ + | Care Canvas Baster Jumpbasting Name | Role | Phone | + +------+ + PCP | Unavailable | + +------+ + Encounter Details +--------+ + + + + | Date | Type | Department | Care Team | Description | +--------+ + + + + | 10/15/ | Hospital | [facility] | | | | 1992 - | Encounter | MED CTR GENERIC OP | | | | | | CONV DEPT [address] | | | | 03/08/ | | [place], | | | | 1993 | | [place] [address] | | | | | | [phone] | | | +--------+ + + + [...]
--- OUTSIDE RECORDS SUMMARY | ~2019-09-04 | XMS | Encounter Summary ---
Demographics + + + | Address | [address] | | | [place] [address] | + + + | Home Phone | | + + + | Preferred Language | Unknown | + + + | Marital Status | | + + + | Episcopal Affiliation | 1013 | + + + | Race | Unknown | + + + | Ethnic Group | Unknown | + + + Author + + + | Author | [facility] | | | and [place] | + + + | Organization | [facility] | | | and [...] Team Providers + +------+ + | Care Supervisor Shuttle Preparation Name | Role | Phone | + +------+ + | Reilly Garcia MD | PCP | | + +------+ + Encounter Details +--------+ + + + + | Date | Type | Department | Care Team | Description | +--------+ + + + + | 09/07/ | Imaging | [facility] | Provider, | | | 2018 | Exam | MED CTR EXTERNAL | MD Aaron [address] | | | | | IMAGING | [place] | | | | | [phone] | [place] [address] | | +--------+ + + + + [...] | + +--------+ + + + | [facility] DIGITAL | Routin | 08/25/2018 | | Results for this | | SCREENING BILATERAL | e | 1:05 PM | | procedure are in the | | | | PDT | | results section. | + +--------+ + + + documented in this encounter Results EDITH Digital Screening Bilateral (08/25/2018 1:05 PM PDT) + + | Specimen | + + | | + + + + + | Narrative | Performed At | + + + | External films for comparison only | [facility] | | | | | No results will be in the chart. | | + + + + +---------+ + + | Performing | Address | City/State/Zipcode | Phone Number | | Organization | | | | + +---------+ + + | [facility] | | | | + +---------+ + + documented in this encounter Visit Diagnoses Not on filedocumented in this encounter"
--- OUTSIDE RECORDS SUMMARY | ~2019-09-04 | XMS | Encounter Summary ---
Demographics + + + | Address | [address] | | | [place] [address] | + + + | Home Phone | | + + + | Preferred Language | Unknown | + + + | Marital Status | | + + + | Tenriism Affiliation | 1013 | + + + | Race | Unknown | + + + | Ethnic Group | Unknown | + + + Author + + + | Author | [facility] | | | and [place] | + + + | Organization | [facility] | | | [...] Team Providers + +------+ + | Care Floor Coverer Name | Role | Phone | + +------+ + | Yoav Bobby MD | PCP | | + +------+ + Reason for Visit + + + | Reason | Comments | + + + | Oncology Appointment | | + + + Encounter Details +--------+ + + + + | Date | Type | Department | Care Team | Description | +--------+ + + + + | 09/10/ | Telephone | [facility] | Noemy Jimenez RN | Oncology Appointment | | 2016 | | [facility] MED[facility] | | | | | | ONCOLOGY CLINIC [address] | | | | | | [address] | | | | | | [place] [address] | | | | | | [phone] | | | +--------+ + + + [...]
--- OUTSIDE RECORDS SUMMARY | ~2019-09-04 | XMS | Encounter Summary ---
Demographics + + + | Address | [address] | | | [place] [address] | + + + | Home Phone | | + + + | Preferred Language | Unknown | + + + | Marital Status | | + + + | Latter Day Affiliation | 1013 | + + + | Race | Unknown | + + + | Ethnic Group | Unknown | + + + Author + + + | Author | [facility] | | | and [place] | + + + | Organization | [facility] | | | [...] Team Providers + +------+ + | Care Child Neurologist Name | Role | Phone | + [...] + + | 08/30/ | Telephone | [facility] | Kenya Tariq | Care Coordination | | 2019 | | MED CTR MEDICAL | MD Esvin [address] | | | | | ONCOLOGY CLINIC [address] | [place], [place] | | | | | [address] | [address] | | | | | [place] [address] | | | | | | [phone] | | | +--------+ + + + [...]
--- OUTSIDE RECORDS SUMMARY | ~2019-09-04 | XMS | Encounter Summary ---
Demographics + + + | Address | [address] | | | [place] [address] | + + + | Home Phone [...] Team Providers + +------+ + | Care Section Chief Name | Role | Phone | + [...] | [facility] | Kenya Tariq | Other | | 2018 | | MED CTR CHEMO | MD Esvin [address] | | | | | INFUSION [address] [place], [place] | | | | | [place], | [address] | | | | | [place] [address] | | | | | | [phone] | | | +--------+ + + + [...]
--- OUTSIDE RECORDS SUMMARY | ~2019-09-04 | XMS | Clinical Summary ---
Demographics + + + | Address | [address] | | | [place] [address] | + + + | Home Phone | | + + + | Preferred Language | Unknown | + + + | Marital Status | | + + + | Mu-Ism Affiliation | Unknown | + + + | Race | Unknown | + + + | Ethnic Group | Unknown | + + + Author + + + | Author | [facility] (Historical as of | | | 06-09-19) | + + + | Organization | [facility] (Historical as of | | | 06-09-19) | + + + | Address | Unknown | + + + | Phone | Unavailable | + + + Support + + +---------+ + | Name | Relationship | Address | Phone | + + +---------+ + | Mark Gerardo | ECON | Unknown | | + + +---------+ + Care Team Providers + +------+ + | Care Art Studio Teacher Name | Role | Phone | + +------+ + | Reilly Garcia MD | PP | | + +------+ + Allergies + + + + + + | Active Allergy | Reactions | Severity | Noted | Comments | | | | | Date | | + + + + + + | Dexamethasone | Other (See Comments) | Medium | 08/09/20 | Listed by PCP | | | | | 18 | | + + + + + + | Levofloxacin | Other (See Comments) | Medium | 08/09/20 | Listed by PCP | | | | | 18 | | + + + + + + | Penicillins | Other (See Comments) | Medium | 08/09/20 | Listed by PCP | | | | | 18 | | + + + + + + | Sulfa Antibiotics | Other (See Comments) | Medium | 08/09/20 | Listed by PCP | | | | | 18 | | + + + + + + | Hydrocodone-Acetamin | Other (See Comments) | Medium | 08/09/20 | Listed by PCP | | ophen | | | 18 | | + + + + + + | Diclofenac | Other (See Comments) | Medium | 08/09/20 | Listed by PCP | | | | | 18 | | + + + + + + Current Medications + + +--------+---------+------+------+-------+ | Prescription | Sig. | Disp. | Refills | Star | End | Statu | | | | | | t | Date | s | | | | | | Date | | | + + +--------+---------+------+------+-------+ | sucralfate | Take 1 g by mouth 4 | | | | | Activ | | (CARAFATE) 1 g | (four) times daily. | | | | | e | | tablet | | | | | | | + + +--------+---------+------+------+-------+ | potassium chloride | Take 10 mEq by mouth | | | | | Activ | | (K-DUR) 10 MEQ | daily. | | | | | e | | tablet | | | | | | | + + +--------+---------+------+------+-------+ | magnesium oxide | Take 400 mg by mouth | | | | | Activ | | (MAG-OX) 400 MG | daily. | | | | | e | | tablet | | | | | | | + + +--------+---------+------+------+-------+ | omeprazole | Take 20 mg by mouth | | | | | Activ | | (PRILOSEC) 20 MG | daily. | | | | | e | | capsule | | | | | | | + + +--------+---------+------+------+-------+ | Cholecalciferol | Take 1,000 Units by | | | | | Activ | | 1000 units capsule | mouth daily. | | | | | e | + + +--------+---------+------+------+-------+ | cetirizine | Take 10 mg by mouth | | | | | Activ | | (ZYRTEC) 10 MG | daily. | | | | | e | | tablet | | | | | | | + + +--------+---------+------+------+-------+ | levothyroxine | Take 88 mcg by mouth | | | | | Activ | | (SYNTHROID) 100 MCG | daily. | | | | | e | | tablet | | | | | | | + + +--------+---------+------+------+-------+ | metoprolol | Take 1 tablet by | 90 | 2 | 08/0 | | Activ | | (TOPROL-XL) 50 MG 24 | mouth daily. | tablet | | 6/20 | | e | | hr tablet | | | | 19 | | | + + +--------+---------+------+------+-------+ Active Problems + + + | Problem | Noted Date | + + + | Hypercholesterolemia | 08/09/2018 | + + + | Hypothyroidism | 08/09/2018 | + + + | Syncope | 08/09/2018 | + + + | Malignant neoplasm of upper-outer quadrant of left female breast | 09/14/2016 | | (HCC) | | + + + + + | Overview: Overview: ACTIVE DIAGNOSIS: pT1, pN0 M0 Stage I | | triple negative LEFT breast cancer.Last Assessment & Plan: Brief, | | 30 minute office encounter with Thea Altamirano "Eliz" and her | | step-daughter Viviana. We reviewed the history of mammographically | | detected, Stage I triple negative LEFT breast cancer, High Grade, | | with positive expression of Ki-67, Tumor > 1 cmWe reviewed the | | pathophysiology of triple-negative LEFT breast cancer, as it | | relates to insensitivity to adjuvant hormonal therapy "pills."We | | reviewed the NCCN Guidelines, version 2.2016 which [...] therapy | | today. | + + Family History + +------+ + + | Relation | Name | Status | Comments | + +------+ + + | Father [...] + +---------+ + | Alcohol Use | Drinks/We | oz/Week | Comments | | | ek | | | + + +---------+ + | No | | | | + + +---------+ + + + + | Sex Assigned at | Date Recorded | | | | + + + | Not on file | | + + + Last Filed Vital Signs + + + + | Vital Sign | Reading | Time Taken | + + + + | Blood Pressure | 126/70 | 10/30/2018 2:08 PM PST | + + + + | Pulse | 80 | 10/30/2018 2:08 PM PST | + + + + | Temperature | - | - | + + + + | Respiratory Rate | - | - | + + + + | Oxygen Saturation | 95% | 10/30/2018 2:08 PM PST | + + + + | Inhaled Oxygen | - | - | | Concentration | | | + + + + | Weight | 79.8 kg (175 lb 14.4 | 10/30/2018 2:08 PM PST | | | oz) | | + + + + | Height | 154.9 cm (5' 1") | 10/30/2018 2:08 PM PST | + + + + | Body Mass Index | 33.24 | 10/30/2018 2:08 PM PST | + + + + Plan of Treatment + + + + + | Health Maintenance | Due Date | Last Done | Comments | + + + + + | Vaccine: | | | | | Dtap/Tdap/Td (1 - | 3 | | | | Tdap) | | | | + + + + + | Colon Cancer | | | | | Screening | 4 | | | | (Colonoscopy) | | | | + + + + + | Vaccine: Zoster (1 | | | | | of 2) | 4 | | | + + + + + | DEXA SCAN SCREENING | | | | | | 9 | | | + + + + + | Vaccine: | | | | | Pneumococcal 65+ | 9 | | | | High/Highest Risk (1 | | | | | of 2 - PCV13) | | | | + + + + + | Vaccine: Influenza | | | | | (#1) | 9 | | | + + + + + Results Not on filefrom Last 3 Months Insurance + +--------+ +--------+-------+---------+ | Payer | Benefi | Subscriber | Type | Phone | Address | | | t Plan | ID | | | | | | / | | | | | | | Group | | | | | + +--------+ +--------+-------+---------+ | [place] - | [id number] | Medica | | | | | MODA | | re | | | | | | | | | | | | | | | | | | | | | | | | | | | | | | | | | | | | | | | | [place] - | | | | | | | MODA | | | | | + +--------+ +--------+-------+---------+ + +--------+ +--------+ + + | Guarantor Name | Accoun | Relation to | Date | Phone | Billing Address | | | t Type | Patient | of | | | | | | | | | | + +--------+ +--------+ + + | THEA ALTAMIRANO | Person | Self [birth year] | Home: | | | | al/Fam | | 1945 | [phone] | [place] | | | kayce | | | [phone] | [address] | + +--------+ +--------+ + +
--- OUTSIDE RECORDS SUMMARY | ~2019-09-04 | XMS | Encounter Summary ---
Demographics + + + | Address | [address] | | | [place] [address] | + + + | Home Phone | | + + + | Preferred Language | Unknown | + + + | Marital Status | | + + + | Buddhism Affiliation | 1013 | + + + | Race | Unknown | + + + | Ethnic Group | Unknown | + + + Author + + + | Author | [facility] | | | and [place] | + + + | Organization | [facility] | | | [...] Team Providers + +------+ + | Care Cord Splicer Name | Role | Phone | + +------+ + | Yoav Bobby MD | PCP | | + +------+ + Reason for Visit +--------+ + | Reason | Comments | +--------+ + | Other | | +--------+ + Encounter Details +--------+ + + + + | Date | Type | Department | Care Team | Description | +--------+ + + + + | 09/08/ | Telephone | [facility] | Noemy Jimenez RN | Other | | 2015 | | [facility] | | | | | | ONCOLOGY CLINIC [address] | | | | | | [address] | | | | | | [place] [address] | | | | | | [phone] | | | +--------+ + + + [...]
--- OUTSIDE RECORDS SUMMARY | ~2019-09-04 | XMS | Encounter Summary ---
Demographics + + + | Address | [address] | | | [place] [address] | + + + | Home Phone | | + + + | Preferred Language | Unknown | + + + | Marital Status | | + + + | Uatsdin Affiliation | 1013 | + + + [...] Team Providers + +------+ + | Care Account Development Representative Name | Role | Phone | + [...] cancer of | MD [address] | [place], | | | | | upper-outer | [address] | [place] [address] | | | | | quadrant of | [place], | Phone: | | | | | left female | [place] [address] | [phone] | | | | | breast (HCC) | Phone: | Fax: | | | | | Procedures | [phone] | [phone] | | | | | CT | Fax: | | | | | | Treatment | [phone] | | | | | | Plan [...] | Breast | Kenya Mcallister, | [address] | | | | | cancer of | MD [address] | [place], | | | | | upper-outer | [address] | [place] [address] | | | | | quadrant of | [place], | Phone: | | | | | left female | [place] [address] | [phone] | | | | | breast (HCC) | Phone: | Fax: | | | | | Procedures | [phone] | [phone] | | | | | CT | Fax: | | | | | | Treatment | [phone] | | | | | | Plan Complex | | | | | | | CT TX PLAN | | | +--------+--------+ + + + + Encounter Details +--------+ + + + + | Date | Type | Department | Care Team | Description | +--------+ + + + + | 09/27/ | Hospital | [facility] | Kenya Tariq | Breast cancer of | | 2016 | Encounter | MED CTR [address] | MD Esvin [address] | upper-outer quadrant | | | | [place], | [place] | of left female | | | | [place] [address] | [address] | breast (HCC) | | | | [phone] | | | +--------+ + + + [...]
--- OUTSIDE RECORDS SUMMARY | ~2019-09-04 | XMS | Encounter Summary ---
Demographics + + + | Address | [address] | | | [place] [address] | + + + | Home Phone | | + + + | Preferred Language | Unknown | + + + | Marital Status | | + + + | Temple Affiliation | 1013 | + + + | Race | Unknown | + + + | Ethnic Group | Unknown | + + + Author + + + | Author | [facility] | | | and [place] | + + + | Organization | [facility] | | | [...] Team Providers + +------+ + | Care Web Merchandiser Name | Role | Phone | + +------+ + | Yoav Bobby MD | PCP | | + +------+ + Encounter Details +--------+ + + + + | Date | Type | Department | Care Team | Description | +--------+ + + + + | 09/28/ | Hospital | [facility] | Kenya Tariq | | | 2016 | Encounter | MED [facility] RAD[facility]ATION | MD Esvin [address] | | | | | ONCOLOGY [address] [place], [place] | | | | | [place], | [address] | | | | | [place] [address] | | | | | | [phone] | | | +--------+ + + + [...]
--- OUTSIDE RECORDS SUMMARY | ~2019-09-04 | XMS | Encounter Summary ---
Demographics + + + | Address | [address] | | | [place] [address] | + + + | Home Phone | | + + + | Preferred Language | Unknown | + + + | Marital Status | | + + + | Shinto Affiliation | 1013 | + + + [...] Team Providers + +------+ + | Care Oil Field Roustabout Name | Role | Phone | + [...] [address] | | | | | [place], [place] | [place], [place] | | | | | [address] | [address] | | | | | [phone] | | | +--------+ + + + [...]
--- OUTSIDE RECORDS SUMMARY | ~2019-09-04 | XMS | Encounter Summary ---
Demographics + + + | Address | [address] | | | [place] [address] | + + + | Home Phone | | + + + | Preferred Language | Unknown | + + + | Marital Status | | + + + | Confucianism Affiliation | 1013 | + + + | Race | Unknown | + + + | Ethnic Group | Unknown | + + + Author + + + | Author | [facility] | | | and [place] | + + + | Organization | [facility] | | [...] Team Providers + +------+ + | Care Captain Cannery Tender Name | Role | Phone | + +------+ + | Yoav Bobby MD | PCP | | + +------+ + Reason for Visit +--------+ + | Reason | Comments | +--------+ + | Other | | +--------+ + Encounter Details +--------+ + + + + | Date | Type | Department | Care Team | Description | +--------+ + + + + | 08/15/ | Telephone | [facility] | Kenya Tariq | Other | | 2017 | | [facility] | MD Esvin [address] | | | | | ONCOLOGY CLINIC [address] | [place], [place] | | | | | [address] | [address] | | | | | [place] [address] | | | | | | [phone] | | | +--------+ + + + [...]
--- OUTSIDE RECORDS SUMMARY | ~2019-09-04 | XMS | Encounter Summary ---
Demographics + + + | Address | [address] | | | [place] [address] | + + + | Home Phone | | + + + | Preferred Language | Unknown | + + + | Marital Status | | + + + | Gnosticism Affiliation | 1013 | + + + [...] Team Providers + +------+ + | Care Urology Teacher Name | Role | Phone | [...] Closed | | Radiation | Diagnoses | Diamante, | Chandni | | | | Oncology | Malignant | Yoav | Kenya Mcallister MD | | | | | neoplasm of | MD Oscar | [address] | | | | | upper-outer | [address] | | | | | quadrant of | [place] | [place], | | | | | left female | [address] | [place] [address] | | | | | breast (HCC) | [place], | Phone: | | | | | Procedures | [place] | [phone] | | | | | [place] OFFICE | [address] | Fax: | | | | | OUTPATIENT | Phone: | [phone] | | | | | VISIT 25 | [phone] | | | | | | MINUTES | Fax: | | | | | | | [phone] | | +--------+--------+ + + + + Encounter Details +--------+ + + + + | Date | Type | Department | Care Team | Description | +--------+ + + + + | 02/23/ | Hospital | [facility] | Kenya Tariq | Encounter for | | 2017 | Encounter | MED [facility] RAD[facility] | MD Esvin [address] | screening mammogram | | | | ONCOLOGY [address] | [place], [place] | for high-risk | | | | [place], | [address] | patient (Primary Dx) | | | | [place] [address] | | | | | | [phone] | | | +--------+ + + + [...] PM PDTSchedule screening mammog uma [facility] for June 2017 Increase activity by walking [...] Srinivasan MD - 02/23[facility]2017 [facility] PATIENT: Thea Bey MR#: [id number] :1945 DOS:02/23/2017 ICD/Diagnosis: C50.912 - Malignant neoplasm [...] margin, no LVIS, PNI present, ER 0%, ND 0%, H er2 non-amplified, Ki-67 60%, 0/2 [...] Exam performed in the presence of a fuse assembler. On upright exam breasts appear sym metric [...] margin, no LVIS, PNI present, ER 0%, ND 0%, Her2 non-amplified, Ki-6 7 60%, 0/2 [...] M.D. Radiation Oncologist Department of Radiation Oncology [facility] Electronically signed by Kenya Srinivasan M.D CC: Noé Liao M.D. Oscar Bobby M.D. Bo Caicedo M.D. This note was transcribed using [employer] speech recognition software. As a result, there ma y be unintended for medical and/or spelling errors. Every attempt is made to correct dicta tion. If there are any questions or errors please contact our office. CSN: [id number] signed by Kenya Srinivasan MD at 03/12/2017 [...]
--- OUTSIDE RECORDS SUMMARY | ~2019-09-04 | XMS | Encounter Summary ---
Demographics + + + | Address | [address] | | | [place] [address] | + + + | Home Phone | | + + + | Preferred Language | Unknown | + + + | Marital Status | | + + + | Pentecostal Affiliation | 1013 | + + + | Race | Unknown | + + + | Ethnic Group | Unknown | + + + Author + + + | Author | [facility] | | | and [place] | + + + | Organization | [facility] | | | [...] Providers + +------+ + | Care Supervisor Irrigation Name | Role | Phone | + [...] + + + + | 09/14/ | Telephone | [facility] | Noemy Jimenez RN | Oncology Appointment | | 2016 | | [facility] | | | | | | ONCOLOGY CLINIC [address] | | | | | | [address] | | | | | | [place] [address] | | | | | | [phone] | | | +--------+ + + + [...]
--- OUTSIDE RECORDS SUMMARY | ~2019-09-04 | XMS | Encounter Summary ---
Demographics + + + | Address | [address] | | | [place] [address] | + + + | Home Phone | | + + + | Preferred Language | Unknown | + + + | Marital Status | | + + + | Advent Affiliation | 1013 | + + + | Race | Unknown | + + + | Ethnic Group | Unknown | + + + Author + + + | Author | [facility] | | | and [place] | + + + | Organization | [facility] | | [...] Team Providers + +------+ + | Care Veterans' Coordinator Name | Role | Phone | + [...] | | ONCOLOGY CLINIC [address] | [address] [place], [place] | | | | | [address] | [address] | | | | | [place] [address] | | | | | | [phone] | | | +--------+ + + + [...]
--- OUTSIDE RECORDS SUMMARY | ~2019-09-04 | XMS | Clinical Summary ---
Demographics + + + | Address | [address] | | | [place] [address] | + + + | Home Phone | | + + + | Preferred Language | Unknown | + + + | Marital Status | | + + + | Congregation Affiliation | 1013 | + + + | Race | Unknown | + + + | Ethnic Group | Unknown | + + + Author + + + | Author | [facility] | | | and [place] | + + + | Organization | [facility] | | | [...] Team Providers + +------+ + | Care Unix Analyst Name | Role | Phone | + [...] | Activ | | high-dose (FLUZONE | 3211-3845 (PF) 180 | | | | | [...] office encounter with Thea Lloyd | | Soteor Alejandro" and her step-daughter Viviana. We reviewed [...] will | | meet with Dr. Kenya Luico to discuss radiation therapy | | today. 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
--- OUTSIDE RECORDS SUMMARY | ~2019-09-04 | XMS | Encounter Summary ---
Demographics + + + | Address | [address] | | | [place] [address] | + + + | Home Phone | | + + + | Preferred Language | Unknown | + + + | Marital Status | | + + + | Synagogue Affiliation | 1013 | + + + | Race | Unknown | + + + | Ethnic Group | Unknown | + + + Author + + + | Author | [facility] | | | and [place] | + + + | Organization | [facility] | | | [...] Team Providers + +------+ + | Care Semiconductor Wafers Etcher Stripper Name | Role | Phone | + +------+ + | Yoav Bobby MD | PCP | | + +------+ + Encounter Details +--------+ + + + + | Date | Type | Department | Care Team | Description | +--------+ + + + + | 11/17/ | Documentati | [facility] | Erna Hernandez, | | | 2016 | on | MED CTR MEDICAL | RN | | | | | ONCOLOGY CLINIC [address] | | | | | | [address] | | | | | | [place] [address] | | | | | | [phone] | | | +--------+ + + + [...] resource to her in her hometown of [place] , [place] at the [employer] where she qualifies for a free year of membership in [facility] program. Eliz said she [...] or down her arm. Eliz will see [facility] doctor tomorrow for her weekly check and I encouraged her to make a follow up appointment with Dr. Lucio and anticipate that she will want to see her in 3 months. Eliz was ER/VA/H ER2 negative and does not follow up [...]
--- OUTSIDE RECORDS SUMMARY | ~2019-09-04 | XMS | Encounter Summary ---
Demographics + + + | Address | [address] | | | [place] [address] | + + + | Home Phone | | + + + | Preferred Language | Unknown | + + + | Marital Status | | + + + | Scientologist Affiliation | 1013 | + + + | Race | Unknown | + + + | Ethnic Group | Unknown | + + + Author + + + | Author | [facility] | | | and [place] | + + + | Organization | [facility] | | [...] Team Providers + +------+ + | Care Real Estate Legal Assistant Name | Role | Phone | + +------+ + | Yoav Bobby MD | PCP | | + +------+ + Encounter Details +--------+ + + + + | Date | Type | Department | Care Team | Description | +--------+ + + + + | 11/17/ | Documentati | [facility] | Erna Hernandez, | | | 2016 | on | MED CTR MEDICAL | RN | | | | | ONCOLOGY CLINIC [address] | | | | | | [address] | | | | | | [place] [address] | | | | | | [phone] | | | +--------+ + + + [...] a sleep aid and this is helping). Elzi de nied any needs with these issues [...] resource to her in her hometown of [place] , [place] at the [employer] where she qualifies for a free year of membership in [facility] Ibar[facility] Cancer program. Eliz said [...] or down her arm. [facility] and I encouraged her to make a follow up appointment with Dr. Lucio and anticipate that she will want to see her in 3 months. Eliz was ER/NH/H ER2 negative and does not follow up with Dr. Caicedo at this point. Eliz also regularly s ees her PCP and I let her know I would send a copy of her survivorship care plan to Dr. Bobby . In addition to the survivorship care plan, the following resources were provided today: inf ormation about local and national support groups, [facility], nutrition during and after cancer treatment [...]
--- OUTSIDE RECORDS SUMMARY | ~2019-09-04 | XMS | Encounter Summary ---
Demographics + + + | Address | [address] | | | [place] [address] | + + + | Home Phone | | + + + | Preferred Language | Unknown | + + + | Marital Status | | + + + | Scientology Affiliation | 1013 | + + + | Race | Unknown | + + + | Ethnic Group | Unknown | + + + Author + + + | Author | [facility] | | | and [place] | + + + | Organization | [facility] | | | and [place] | + [...] Team Providers + +------+ + | Care Boat Laborer Name | Role | Phone | + +------+ + | Yoav Bobby MD | PCP | | + +------+ + Encounter Details +--------+ + + + + | Date | Type | Department | Care Team | Description | +--------+ + + + + | 09/13/ | Abstract | [facility] | Arlene Ramirez | | | 2015 | | MED CTR MEDICAL | P, RN | | | | | ONCOLOGY CLINIC [address] | | | | | | [address] | | | | | | [place] [address] | | | | | | [phone] | | | +--------+ + + + [...]
--- OUTSIDE RECORDS SUMMARY | ~2019-09-04 | XMS | Encounter Summary ---
Demographics + + + | Address | [address] | | | [place] [address] | + + + | Home Phone | | + + + | Preferred Language | Unknown | + + + | Marital Status | | + + + | Scientologist Affiliation | 1013 | + + + | Race | Unknown | + + + | Ethnic Group | Unknown | + + + Author + + + | Author | [facility] | | | and [place] | + + + | Organization | [facility] | | | [...] Team Providers + +------+ + | Care Fruit Harvester Name | Role | Phone | + [...] cancer of | MD [address] | [place], | | | | | upper-outer | [address] | [place] [address] | | | | | quadrant of | [place], | Phone: | | | | | left female | [place] [address] | [phone] | | | | | breast (HCC) | Phone: | Fax: | | | | | Procedures | [phone] | [phone] | | | | | CT | Fax: | | | | | | Treatment | [phone] | | | | | | Plan Complex | | | | | | | CT TX PLAN | | | +--------+--------+ + + + + Reason for Visit + + + | Reason | Comments | + + + | Follow-up | | + + + Encounter Details +--------+ + + + + | Date | Type | Department | Care Team | Description | +--------+ + + + + | 09/21/ | Telephone | [facility] | Amara Naranjolennuris Mcallister, | Follow-up | | 2016 | | MED CTR RAD[facility]ATION | RN | | | | | ONCOLOGY [address] | | | | | | [place], | | | | | | [place] [address] | | | | | | [phone] | | | +--------+ + + + [...] + + documented as of this encounter Results CT Treatment Plan Complex [...] left female breast (HCC) - Primary | + + documented in this encounter"
--- OUTSIDE RECORDS SUMMARY | ~2019-09-04 | XMS | Encounter Summary ---
Demographics + + + | Address | [address] | | | [place] [address] | + + + | Home Phone | | + + + | Preferred Language | Unknown | + + + | Marital Status | | + + + | Latter-Day Affiliation | 1013 | + + + [...] Team Providers + +------+ + | Care Business Liaison Officer Name | Role | Phone | [...] | | | ONCOLOGY CLINIC [address] | [place], [place] | | | | | [address] | [address] | | | | | [place] [address] | | | | | | [phone] | | | +--------+ + + + [...]
--- OUTSIDE RECORDS SUMMARY | ~2019-09-04 | XMS | Encounter Summary ---
Demographics + + + | Address | [address] | | | [place] [address] | + + + | Home Phone | | + + + | Preferred Language | Unknown | + + + | Marital Status | | + + + | Faith Affiliation | 1013 | + + + [...] Team Providers + +------+ + | Care Healthcare Administration Intern Name | Role | Phone | + [...] Closed | | Radiation | Diagnoses | Noemi, | Chandni | | | | Oncology | Breast | Roshan Grover | Kenya Mcallister MD | | | | | cancer of | [address] | [address] | | | | | upper-outer | [address] | | | | | quadrant of | [address] | [place], | | | | | left female | [place], | [place] [address] | | | | | breast (HCC) | [place] [address] | Phone: | | | | | Consult/L | Phone: | [phone] | | | | | Breast | [phone] | Fax: | | | | | Cancer/Noemi | Fax: | [phone] | | | | | (Breast | [phone] | | | | | | Conference - | | | | | | | Requested) | | | | | | | Procedures | | | | | | | [place] OFFICE | | | | | | | OUTPATIENT | | | | | | | VISIT 25 | | | | | | | MINUTES NEW | | | | | | | PATIENT | | | +--------+--------+ + + + + Encounter Details +--------+ + + + + | Date | Type | Department | Care Team | Description | +--------+ + + + + | 09/14/ | Hospital | [facility] | Kenya Tariq | | | 2016 | Encounter | MED CTR RADIATION | M, [address] | | | | | ONCOLOGY [address] | [place], [place] | | | | | [place], | [address] | | | | | [place] [address] | | | | | | [phone] | | | +--------+ + + + [...]
--- OUTSIDE RECORDS SUMMARY | ~2019-09-04 | XMS | Encounter Summary ---
Demographics + + + | Address | [address] | | | [place] [address] | + + + | Home Phone | | + + + | Preferred Language | Unknown | + + + | Marital Status | | + + + | Mormonism Affiliation | 1013 | + + + [...] Team Providers + +------+ + | Care Airport Traffic Controller Name | Role | Phone | + +------+ + PCP | Unavailable | + +------+ + Encounter Details +--------+ + + + + | Date | Type | Department | Care Team | Description | +--------+ + + + + | 10/15/ | Hospital | [facility] | | | | 1992 - | Encounter | MED CTR GENERIC OP | | | | | | CONV DEPT [address] | | | | 03/08/ | | [place], | | | | 1994 | | [place] [address] | | | | | | [phone] | | | +--------+ + + + [...]
--- OUTSIDE RECORDS SUMMARY | ~2019-09-04 | XMS | Encounter Summary ---
Demographics + + + | Address | [address] | | | [place] [address] | + + + | Home Phone | | + + + | Preferred Language | Unknown | + + + | Marital Status | | + + + | Sikhism Affiliation | 1013 | + + + [...] Team Providers + +------+ + | Care Spring Maker Name | Role | Phone | [...] W | | | | | | [place], | | | | | | [place] [address] | | | | | | [phone] | | | +--------+ + + + [...]
--- OUTSIDE RECORDS SUMMARY | ~2019-09-04 | XMS | Encounter Summary ---
Demographics + + + | Address | [address] | | | [place] [address] | + + + | Home Phone | | + + + | Preferred Language | Unknown | + + + | Marital Status | | + + + | Worship Affiliation | 1013 | + + + | Race | Unknown | + + + | Ethnic Group | Unknown | + + + Author + + + | Author | [facility] | | | and [place] | + + + | Organization | [facility] | | [...] Team Providers + +------+ + | Care Fusing Machine Tender Name | Role | Phone | [...] cancer of | MD [address] | [place], | | | | | upper-outer | [address] | [place] [address] | | | | | quadrant of | [place], | Phone: | | | | | left female | [place] [address] | [phone] | | | | | breast (HCC) | Phone: | Fax: | | | | | Procedures | [phone] | [phone] | | | | | CT | Fax: | | | | | | Treatment | [phone] | | | | | | Plan [...] | Breast | Kenya Mcallister, | [address] | | | | | cancer of | MD [address] | [place], | | | | | upper-outer | [address] | [place] [address] | | | | | quadrant of | [place], | Phone: | | | | | left female | [place] [address] | [phone] | | | | | breast (HCC) | Phone: | Fax: | | | | | Procedures | [phone] | [phone] | | | | | CT | Fax: | | | | | | Treatment | [phone] | | | | | | Plan Complex | | | | | | | CT TX PLAN | | | +--------+--------+ + + + + Encounter Details +--------+ + + + + | Date | Type | Department | Care Team | Description | +--------+ + + + + | 09/27/ | Hospital | [facility] | Kenya Tariq | Breast cancer of | | 2016 | Encounter | MED CTR CT [address] | MD Esvin [address] | upper-outer quadrant | | | | [place], | [place] | of left female | | | | [place] [address] | [address] | breast (HCC) | | | | [phone] | | | +--------+ + + + [...]
--- OUTSIDE RECORDS SUMMARY | ~2019-09-04 | XMS | Encounter Summary ---
Demographics + + + | Address | [address] | | | [place] [address] | + + + | Home Phone [...] Providers + +------+ + | Care Poultry Culler Name | Role | Phone | + [...] + | 09/27/ | Documentati | [facility] | Apollo Dhillon, | Psychosocial Support | | 2016 | on | MED CTR MEDICAL | JAVA TECH LEAD | | | | | ONCOLOGY CLINIC [address] | | | | | | [address] [place] | | | | | | [place] [address] | | | | | | [phone] | | | +--------+ + + + [...] for jo st cancer. She lives in [place], [place]. Eliz is covered by [employer] Medicare [...] coping skills and st donal ramandeep. This Certified Coding Specialist allowed for expression of feeling and provided supportive counseling and information regarding the emotional aspects of a cancer diagnosis and treatment. Encourage d Eliz to attend community support group and offered literature on patient s diagnosis. This Certified Coding Specialist and Tuber Machine Operator are available to provide emotional support an [...]
--- OUTSIDE RECORDS SUMMARY | ~2019-09-04 | XMS | Encounter Summary ---
Demographics + + + | Address | [address] | | | [place] [address] | + + + | Home Phone | | + + + | Preferred Language | Unknown | + + + | Marital Status | | + + + | Baptist Affiliation | 1013 | + + + | Race | Unknown | + + + | Ethnic Group | Unknown | + + + Author + + + | Author | [facility] | | | and [place] | + + + | Organization | [facility] | | [...] Team Providers + +------+ + | Care Wastewater Treatment Plant Instructor Name | Role | Phone | + [...] + | 08/30/ | Telephone | [facility] | Kenya Tariq | Other | | 2018 | | MED CTR CHEMO | MD Esvin [address] | | | | | INFUSION [address] | [address] [place], [place] | | | | | [place], | [address] | | | | | [place] [address] | | | | | | [phone] | | | +--------+ + + + [...]
--- OUTSIDE RECORDS SUMMARY | ~2019-09-04 | XMS | Encounter Summary ---
Demographics + + + | Address | [address] | | | [place] [address] | + + + | Home Phone | | + + + | Preferred Language | Unknown | + + + | Marital Status | | + + + | Church Affiliation | 1013 | + + + | Race | Unknown | + + + | Ethnic Group | Unknown | + + + Author + + + | Author | [facility] | | | and [place] | + + + | Organization | [facility] | | [...] Team Providers + +------+ + | Care Tile And Marble Installer Name | Role | Phone | + [...] [address] | | | | | [address] | [place] [address] | | | | | [place] [address] | [phone] | | | | | [phone] | | | +--------+ + + + [...]
--- OUTSIDE RECORDS SUMMARY | ~2019-09-04 | XMS | Encounter Summary ---
Demographics + + + | Address | [address] | | | [place] [address] | + + + | Home Phone | | + + + | Preferred Language | Unknown | + + + | Marital Status | | + + + | Mosque Affiliation | 1013 | + + + | Race | Unknown | + + + | Ethnic Group | Unknown | + + + Author + + + | Author | [facility] | | | and [place] | + + + | Organization | [facility] | | [...] Team Providers + +------+ + | Care Nutrition Partner Name | Role | Phone | + [...] | left female | [place], | [place] [address] | | | | | breast (HCC) | [place] [address] | Phone: | | | | | Consult/L | Phone: | [phone] | | | | | Breast | [phone] | Fax: | | | | | Cancer/Noemi | Fax: | [phone] | | | | | (Breast | [phone] | | | | | | Conference - | | | | | | | Requested) | | | | | | | Procedures | | | | | | | [place] OFFICE | | | | | | [...] + + | 09/14/ | Hospital | [facility] | Kenya Tariq | | | 2016 | Encounter | MED CTR RADIATION | M, [address] | | | | | ONCOLOGY [address] | [place], [place] | | | | | [place], | [address] | | | | | [place] [address] | | | | | | [phone] | | | +--------+ + + + [...]
--- OUTSIDE RECORDS SUMMARY | ~2019-09-04 | XMS | Clinical Summary ---
Demographics + + + | Address | [address] | | | [place] [address] | + + + | Home Phone | | + + + | Preferred Language | Unknown | + + + | Marital Status | | + + + | Holiness Affiliation | Unknown | + + + | Race | Unknown | + + + | Ethnic Group | Unknown | + + + Author + + + | Author | [facility] (Historical as of | | | 06-09-19) | + + + | Organization | [facility] [employer] (Historical as of | | | 06-09-19) [...] Team Providers + +------+ + | Care Subway Repair Supervisor Name | Role | Phone | [...] [place] - [place] | [place] - | [id number] | Medica | | | | | [...] | kayce | | | [address]156 | [address] | + +--------+ +--------+ + +
--- OUTSIDE RECORDS SUMMARY | ~2019-09-04 | XMS | Encounter Summary ---
Demographics + + + | Address | [address] | | | [place] [address] | + + + | Home Phone | | + + + | Preferred Language | Unknown | + + + | Marital Status | | + + + | Adventism Affiliation | 1013 | + + + | Race | Unknown | + + + | Ethnic Group | Unknown | + + + Author + + + | Author | [facility] | | | and [place] | + + + | Organization | [facility] | | [...] + +------+ + | Care Vice President Tax Name | Role | Phone | + [...] | | | | | | [place] [address] | | | | | | [phone] | | | +--------+ + + + [...]
--- OUTSIDE RECORDS SUMMARY | ~2019-09-04 | XMS | Encounter Summary ---
Demographics + + + | Address | [address] | | | [place] [address] | + + + | Home Phone | | + + + | Preferred Language | Unknown | + + + | Marital Status | | + + + | Presybeterian Affiliation | 1013 | + + + [...] Team Providers + +------+ + | Care Turn Down Man Name | Role | Phone | + [...] | | | | | [place] [address] | | | | | | [phone] | | | +--------+ + + + [...]
--- OUTSIDE RECORDS SUMMARY | ~2019-09-04 | XMS | Encounter Summary ---
Demographics + + + | Address | [address] | | | [place] [address] | + + + | Home Phone [...] Team Providers + +------+ + | Care Bearing Machine Operator Name | Role | Phone | [...] W | | | | | | [place], | | | | | | [place] [address] | | | | | | [phone] | | | +--------+ + + + [...]
--- OUTSIDE RECORDS SUMMARY | ~2019-09-04 | XMS | Encounter Summary ---
Demographics + + + | Address | [address] | | | [place] [address] | + + + | Home Phone [...] Team Providers + +------+ + | Care Circuit Breaker Assembler Name | Role | Phone | + [...] [address] | | | | | [address] | [place] [address] | | | | | [place] [address] | [phone] | | | | | [phone] | | | +--------+ + + + [...]
--- OUTSIDE RECORDS SUMMARY | ~2019-09-04 | XMS | Encounter Summary ---
Demographics + + + | Address | [address] | | | [place] [address] | + + + | Home Phone | | + + + | Preferred Language | Unknown | + + + | Marital Status | | + + + | Worship Affiliation | 1013 | + + + | Race | Unknown | + + + | Ethnic Group | Unknown | + + + Author + + + | Author | [facility] | | | and [place] | + + + | Organization | [facility] | | [...] Team Providers + +------+ + | Care Judicial Assistant Name | Role | Phone | [...] | | ONCOLOGY CLINIC [address] [place], [place] | | | | | [place] | [address] | | | | | [place] [address] | | | | | | [phone] | | | +--------+ + + + [...]
--- OUTSIDE RECORDS SUMMARY | ~2019-09-04 | XMS | Encounter Summary ---
Demographics + + + | Address | [address] | | | [place] [address] | + + + | Home Phone [...] Team Providers + +------+ + | Care Radiology Tech Name | Role | Phone | + [...] | | | ONCOLOGY CLINIC [address] | [place], [place] | | | | | [address] | [address] | | | | | [place] [address] | | | | | | [phone] | | | +--------+ + + + [...]
--- OUTSIDE RECORDS SUMMARY | ~2019-09-04 | XMS | Encounter Summary ---
Demographics + + + | Address | [address] | | | [place] [address] | + + + | Home Phone | | + + + | Preferred Language | Unknown | + + + | Marital Status | | + + + | Quaker Affiliation | 1013 | + + + | Race | Unknown | + + + | Ethnic Group | Unknown | + + + Author + + + | Author | [facility] | | | and [place] | + + + | Organization | [facility] | | [...] Team Providers + +------+ + | Care Air Hose Coupler Name | Role | Phone | + [...] | | | ONCOLOGY CLINIC [address] | [place], [place] | | | | | [address] [place] | [address] | | | | | [place] [address] | | | | | | [phone] | | | +--------+ + + + [...]
--- OUTSIDE RECORDS SUMMARY | ~2019-09-04 | XMS | Encounter Summary ---
Demographics + + + | Address | [address] | | | [place] [address] | + + + | Home Phone | | + + + | Preferred Language | Unknown | + + + | Marital Status | | + + + | Pentecostalism Affiliation | 1013 | + + + | Race | Unknown | + + + | Ethnic Group | Unknown | + + + Author + + + | Author | [facility] | | | and [place] | + + + | Organization | [facility] | | [...] Team Providers + +------+ + | Care Carpenter Maintenance Name | Role | Phone | + +------+ + PCP | Unavailable | + +------+ + Encounter Details +--------+ + + + + | Date | Type | Department | Care Team | Description | +--------+ + + + + | 01/03/ | Hospital | [facility] | | | | 1994 | Encounter | MED CTR XRAY [address] | | | | | | [place] | | | | | | [place] [address] | | | | | | [phone] | | | +--------+ + + + [...]
--- OUTSIDE RECORDS SUMMARY | ~2019-09-04 | XMS | Encounter Summary ---
Demographics + + + | Address | [address] | | | [place] [address] | + + + | Home Phone | | + + + | Preferred Language | Unknown | + + + | Marital Status | | + + + | Quaker Affiliation | 1013 | + + + | Race | Unknown | + + + | Ethnic Group | Unknown | + + + Author + + + | Author | [facility] | | | and [place] | + + + | Organization | [facility] | | [...] Team Providers + +------+ + | Care Kiln Cleaner Name | Role | Phone | + [...] | | | | | | [place] [address] | | | | | | [phone] | | | +--------+ + + + [...]
--- OUTSIDE RECORDS SUMMARY | ~2019-09-04 | XMS | Encounter Summary ---
Demographics + + + | Address | [address] | | | [place] [address] | + + + | Home Phone | | + + + | Preferred Language | Unknown | + + + | Marital Status | | + + + | Taoism Affiliation | 1013 | + + + | Race | Unknown | + + + | Ethnic Group | Unknown | + + + Author + + + | Author | [facility] | | | and [place] | + + + | Organization | [facility] | | | [...] Team Providers + +------+ + | Care Flume Tender Name | Role | Phone | [...] | MED CTR EXTERNAL | MD [address] | | | | | IMAGING | [place] | | | | | [phone] | [place] [address] | | +--------+ + + + + [...]
--- OUTSIDE RECORDS SUMMARY | ~2019-09-04 | XMS | Encounter Summary ---
Demographics + + + | Address | [address] | | | [place] [address] | + + + | Home Phone [...] Team Providers + +------+ + | Care Clinical Education Assistant Name | Role | Phone | + +------+ + | Yoav Bobby MD | PCP | | + +------+ + Encounter Details +--------+ + + + + | Date | Type | Department | Care Team | Description | +--------+ + + + + | 09/28/ | Hospital | [facility] | Kenya Tariq | | | 2016 | Encounter | MED CTR RADIATION | MD [address]vin [address] | | | | | ONCOLOGY [address] | [address] [place], [place] | | | | | [place], | [address] | | | | | [place] [address] | | | | | | [phone] | | | +--------+ + + + [...]
--- OUTSIDE RECORDS SUMMARY | ~2019-09-04 | XMS | Encounter Summary ---
Demographics + + + | Address | [address] | | | [place] [address] | + + + | Home Phone | | + + + | Preferred Language | Unknown | + + + | Marital Status | | + + + | Jehovah'S Witness Affiliation | 1013 | + + + [...] Team Providers + +------+ + | Care Customer Supply Chain Analyst Name | Role | Phone | [...] | | | | | | [place] [address] | | | | | | [phone] | | | +--------+ + + + [...]
--- OUTSIDE RECORDS SUMMARY | ~2019-09-04 | XMS | Encounter Summary ---
Demographics + + + | Address | [address] | | | [place] [address] | + + + | Home Phone [...] + +------+ + | Care Director Of Consulting Services Name | Role | Phone | [...] | | [place] | [place] [address] | | | | | [address] | [phone] | | | | | [phone] | | | +--------+ + + + [...] MV A Dominik: 0.78 m/s MV Dec Brewster: 1.85 m/s2 MV | | | DecT: [...] TR Vmax: | | | 2.26 m/s Electronic Warfare Specialist: TRINA Authenticated by: Ankita Britton | | [...] cmLVIDd: 3.98 cmLVPWd: 0.83 cmLVOT Area: 3.62 [id number] Diam: 2.14 | | cm%FS: 32.84 %EF(Teich): [...] (A-L): 14.52 ml/m2LAAs | | A2C: 12.21 rf4FLERT A-L A2C: 28.55 mlLALs A2C: 4.43 cmLAAs A4C: 10.23 [id number] | | A-L A4C: 21.30 mlLALs A4C: 4.17 cmRAAs: 11.64 al4EGJOE A-L: 25.86 mlRAESV MOD: | | 25.17 mlRALs: 4.44 cmTAPSE: 1.80 cmAV maxP.07 mmHgAV meanP.38 mmHgAV | | Vmax: 1.12 m/Coreen Vmean: 0.70 m/Coreen VTI: 18.38 cmAVA Vmax: 2.58 cm2AVA (VTI): | | 2.95 pq9EPIP maxP.57 mmHgLVOT meanP.37 mmHgLVSI Dopp: 31.04 ml/m2LVSV | | Dopp: 54.32 mlLVOT Vmax: 0.80 m/sLVOT Vmean: 0.53 m/sLVOT VTI: 15.00 cmMV A Dominik: | | 0.78 m/sMV Dec Brewster: 1.85 m/s2MV DecT: 283.47 msMV E Dominik: 0.52 m/sMV E/A | | Ratio: 0.67MV PHT: 82.20 msMVA By PHT: 2.67 bm8Nonskr e': 0.06 m/sSeptal E/e': | | 8.11Lateral e': 0.06 m/sLateral E/e': 8.16RAP: 5 mmHgRVSP: 25.51 mmHgTR maxPG: | | 20.51 mmHgTR Vmax: 2.26 m/s Electronic Warfare Specialist: DHAuthenticated by: Ankita Samayoa | | Date/Time: [...] A Dominik: 0.78 m/s | |MV Dec Brewster: 1.85 m/s2 | |MV DecT: 283.47 ms [...] |TR Vmax: 2.26 m/s | | | |Electronic Warfare Specialist: | |Authenticated by: Ankita Britton | |Report [...]
--- OUTSIDE RECORDS SUMMARY | ~2019-09-04 | XMS | Encounter Summary ---
Demographics + + + | Address | [address] | | | [place] [address] | + + + | Home Phone | | + + + | Preferred Language | Unknown | + + + | Marital Status | | + + + | Synagogue Affiliation | 1013 | + + + | Race | Unknown | + + + | Ethnic Group | Unknown | + + + Author + + + | Author | [facility] | | | and [place] | + + + | Organization | [facility] | | [...] + +------+ + | Care Director Of Public Safety Name | Role | Phone | + [...] | | | | | | [place] [address] | | | | | | [phone] | | | +--------+ + + + [...]
--- OUTSIDE RECORDS SUMMARY | ~2019-09-04 | XMS | Encounter Summary ---
Demographics + + + | Address | [address] | | | [place] [address] | + + + | Home Phone [...] + + | Author | [facility] | | | and [place] | + + + | Organization | [facility] | | [...] Team Providers + +------+ + | Care Butadiene Converter Operator Name | Role | Phone | + +------+ + PCP | Unavailable | + +------+ + Encounter Details +--------+ + + + + | Date | Type | Department | Care Team | Description | +--------+ + + + + | 09/26/ | Hospital | [facility] | | | | 2007 | Encounter | MED CTR XRAY [address] | | | | | | [place] | | | | | | [place] [address] | | | | | | [phone] | | | +--------+ + + + [...]
--- OUTSIDE RECORDS SUMMARY | ~2019-09-04 | XMS | Encounter Summary ---
Demographics + + + | Address | [address] | | | [place] [address] | + + + | Home Phone | | + + + | Preferred Language | Unknown | + + + | Marital Status | | + + + | Judaism Affiliation | 1013 | + + + [...] + +------+ + | Care Director Of Informatics Name | Role | Phone | + +------+ + | Reilly Garcia MD | PCP | | + +------+ + Encounter Details +--------+ + + + + | Date | Type | Department | Care Team | Description | +--------+ + + + + | 05/21/ | Orders Only | [facility] | Provider, | | | 2019 | | SYSTEM GENERIC OP | MD [address] | | | | | [address] | [place] | | | | | [address] [place], [place] | [place] [address] | | | | | [address] | | | | | | [phone] | | | +--------+ + + + [...]
--- OUTSIDE RECORDS SUMMARY | ~2019-09-04 | XMS | Encounter Summary ---
Demographics + + + | Address | [address] | | | [place] [address] | + + + | Home Phone [...] Team Providers + +------+ + | Care Shoe Stitcher Odd Name | Role | Phone | + [...] | | | | quadrant of | [place] | [place], | | | | | left female | [address] | [place] [address] | | | | | breast (HCC) | [place], | Phone: | | | | | Procedures | [place] | [phone] | | | | | [place] OFFICE | [address] | Fax: | | | | | OUTPATIENT | Phone: | [phone] | | | | | VISIT 25 | [phone] | | | | | | MINUTES | Fax: | | | | | | | [phone] | | +--------+--------+ + + + + Encounter Details +--------+ + + + + | Date | Type | Department | Care Team | Description | +--------+ + + + + | 02/10/ | Hospital | [facility] | Kenya Tariq | Malignant neoplasm | | 2018 | Encounter | MED CTR RADIATION | MD Esvin [address] | of upper-outer | | | | ONCOLOGY CLINIC [address] | [address] [place], [place] | quadrant of left | | | | [address] [place] | [address] | breast in female, | | | | [place] [address] | | estrogen receptor | | | | [phone] | | negative (HCC) | | | [...] margin, no LVIS, PNI present, ER 0%, MO 0%, H er2 non-amplified, Ki-67 60%, 0/2 [...] Dr. Yoav Bobby and Dr. Caicedo in [place]. She comes to clinic today with a [...] margin, no LVIS, PNI present, ER 0%, MO 0%, H er2 non-amplified, Ki-67 60%, 0/2 [...] recommended at this time. Orally placed at [facility]. Bila teral screening mammogram due in July. Thank you for allowing me to participate in the care of Thea Bey. If you should enriquez ve any questions regarding this evaluation, please do not hesitate to contact me. Kenya Mitchell M.D. Radiation Oncologist Department of Radiation Oncology [facility] Office: [phone] CC: Patient Care Team: Yoav Bobby as [...] encounter Results IMAGING REPORT - EXTERNAL SCAN (08/25/2018 12:00 [...]
--- OUTSIDE RECORDS SUMMARY | ~2019-09-04 | XMS | Encounter Summary ---
Demographics + + + | Address | [address] | | | [place] [address] | + + + | Home Phone | | + + + | Preferred Language | Unknown | + + + | Marital Status | | + + + | Cheondoism Affiliation | 1013 | + + + [...] Providers + +------+ + | Care Clinical Informaticist Name | Role | Phone | + [...] cancer of | MD [address] | [place], | | | | | upper-outer | [address] | [place] [address] | | | | | quadrant of | [place], | Phone: | | | | | left female | [place] [address] | [phone] | | | | | breast (HCC) | Phone: | Fax: | | | | | Procedures | [phone] | [phone] | | | | | CT | Fax: | | | | | | Treatment | [phone] | | | | | | Plan [...] W | | | | | | [place], | | | | | | [place] [address] | | | | | | [phone] | | | +--------+ + + + [...]
--- OUTSIDE RECORDS SUMMARY | ~2019-09-04 | XMS | Encounter Summary ---
Demographics + + + | Address | [address] | | | [place] [address] | + + + | Home Phone | | + + + | Preferred Language | Unknown | + + + | Marital Status | | + + + | Faith Affiliation | 1013 | + + + | Race | Unknown | + + + | Ethnic Group | Unknown | + + + Author + + + | Author | [facility] | | | and [place] | + + + | Organization | [facility] | [...] Team Providers + +------+ + | Care Correctional Casework Specialist Name | Role | Phone | + +------+ + PCP | Unavailable | + +------+ + Encounter Details +--------+ + + + + | Date | Type | Department | Care Team | Description | +--------+ + + + + | 09/26/ | Hospital | [facility] | | | | 2007 | Encounter | MED CTR XRAY [address] | | | | | | [place] | | | | | | [place] [address] | | | | | | [phone] | | | +--------+ + + + [...]
--- OUTSIDE RECORDS SUMMARY | ~2019-09-04 | XMS | Encounter Summary ---
Demographics + + + | Address | [address] | | | [place] [address] | + + + | Home Phone [...] Team Providers + +------+ + | Care Coal Conveyor Operator Name | Role | Phone | + +------+ + | Reilly Garcia MD | PCP | | + +------+ + Encounter Details +--------+ + + + + | Date | Type | Department | Care Team | Description | +--------+ + + + + | 05/21/ | Orders Only | [facility] | Provider, | | | 2019 | | SYSTEM GENERIC OP | MD Aaron [address] | | | | | [address] | [place] | | | | | [address] [place], [place] | [place] [address] | | | | | [address] | | | | | | [phone] | | | +--------+ + + + [...]
--- OUTSIDE RECORDS SUMMARY | ~2019-09-04 | XMS | Encounter Summary ---
Demographics + + + | Address | [address] | | | [place] [address] | + + + | Home Phone | | + + + | Preferred Language | Unknown | + + + | Marital Status | | + + + | Taoist Affiliation | 1013 | + + + | Race | Unknown | + + + | Ethnic Group | Unknown | + + + Author + + + | Author | [facility] | | | and [place] | + + + | Organization | [facility] | | | and [...] Team Providers + +------+ + | Care Filtrose Crusher Name | Role | Phone | + [...] | | | | quadrant of | [place] | [place], | | | | | left female | [address] | [place] [address] | | | | | breast (HCC) | Meghan, | Phone: | | | | | Procedures | [place] | [phone] | | | | | [place] OFFICE | [address] | Fax: | | | | | OUTPATIENT | Phone: | [phone] | | | | | VISIT 25 | [phone] | | | | | | MINUTES | Fax: | | | | | | | [phone] | | +--------+--------+ + + + + Encounter Details +--------+ + + + + | Date | Type | Department | Care Team | Description | +--------+ + + + + | 02/10/ | Hospital | [facility] | Kenya Tariq | Malignant neoplasm | | 2018 | Encounter | MED CTR RADIATION | MD Esvin [address] | of upper-outer | | | | ONCOLOGY CLINIC [address] | [place], [place] | quadrant of left | | | | [address] [place] | [address] | breast in female, | | | | [place] [address] | | estrogen receptor | | | | [phone] | | negative (HCC) | | | [...] margin, no LVIS, PNI present, ER 0%, FL 0%, H er2 non-amplified, Ki-67 60%, 0/2 [...] Dr. Yoav Bobby and Dr. Caicedo in [place]. She comes to clinic today with a [...] margin, no LVIS, PNI present, ER 0%, FL 0%, H er2 non-amplified, Ki-67 60%, 0/2 [...] recommended at this time. Orally placed at [place]. Bila teral screening mammogram due in July. Thank you for allowing me to participate in the care of Thea Bey. If you should enriquez ve any questions regarding this evaluation, please do not hesitate to contact me. Kenya Mitchell M.D. Radiation Oncologist Department of Radiation Oncology [facility] Office: [phone] CC: Patient Care Team: Yoav Bobby as PCP - General (Internal Medicine) Roshan Franklin as Physician (General Surgery) Kneya Owens MD as Physician (Radiation Oncology) Cheo [...]
--- OUTSIDE RECORDS SUMMARY | ~2019-09-04 | XMS | Encounter Summary ---
Demographics + + + | Address | [address] | | | [place] [address] | + + + | Home Phone [...] Team Providers + +------+ + | Care Superintendent Factory Name | Role | Phone | + +------+ + | Yoav Bobby MD | PCP | | + +------+ + Encounter Details +--------+ + + + + | Date | Type | Department | Care Team | Description | +--------+ + + + + | 10/29/ | [facility] | [facility] | Kenya Tariq | | | 2017 | Encounter | MED CTR RADIATION | MD Esvin [address] | | | | | ONCOLOGY [address] | [address] [place], [place] | | | | | [place], | [address] | | | | | [place] [address] | | | | | | [phone] | | | +--------+ + + + [...] La Paz DO - 11/11/2016 6:21 [facility] On Treatment Note Name: Thea Bey ID: [id number] Date of Service:11/11/2016 ICD-9 and Description: C50.912 [...] 6:21:53 PM Page 1 of 2 CSN: [id number] signed by Michael De La Paz DO [...]
[~2019-09-04 10:28] MED LIST changes: +KLOR-CON 1010 MEQ PO; +MAG-OXIDE400 MG PO; +METOPROLOL SUC100 MG PO; +OMEPRAZOLE20 MG PO; +SUCRALFATE1 GM PO; +TYLENOL325 MG PO
== END 2019-09-04 11:17 | disposition home or self-care (01) ==
LOC: ED 10:28
DX: T47.1X1A Poisoning by other antacids and anti-gastric-secretion drugs, accidental (unintentional), initial encounter (principal); T50.3X1A Poisoning by electrolytic, caloric and water-balance agents, accidental (unintentional), initial encounter; T38.1X1A Poisoning by thyroid hormones and substitutes, accidental (unintentional), initial encounter; E03.9 Hypothyroidism, unspecified; K21.9 Gastro-esophageal reflux disease without esophagitis; I10 Essential (primary) hypertension; Z88.6 Allergy status to analgesic agent; Z88.0 Allergy status to penicillin; Z88.8 Allergy status to other drugs, medicaments and biological substances; Z88.2 Allergy status to sulfonamides; Z79.899 Other long term (current) drug therapy
CPT/HCPCS: 99283

== ENCOUNTER 2019-09-25 11:51 | Emergency (ER) | payer MEDICARE ==
[~2019-09-25] VITALS: Ht 154.9 cm; Wt 77.1 kg
--- OUTSIDE RECORDS SUMMARY | ~2019-09-25 | XMS | Encounter Summary ---
Demographics + + + | Address | [address] | | | [place] [address] | + + + | Home Phone | | + + + | Preferred Language | Unknown | + + + | Marital Status | | + + + | Anabaptism Affiliation | 1013 | + + + | Race | Unknown | + + + | Ethnic Group | Unknown | + + + Author + + + | Author | [facility] | | | and [place] | + + + | Organization | [facility] | | | and [...] Team Providers + +------+ + | Care Vice President Of Software Development Name | Role | Phone | + +------+ + | Yoav Bobby MD | PCP | | + +------+ + Reason for Visit +--------+ + | Reason | Comments | +--------+ + | Other | | +--------+ + Encounter Details +--------+ + + + + | Date | Type | Department | Care Team | Description | +--------+ + + + + | 08/02/ | Telephone | [facility] | Chandni Kenya | Other | | 2017 | | MED CTR RADIATION | MD Esvin [address] | | | | | ONCOLOGY CLINIC [address] | [place], [place] | | | | | [address] [place] | [address] | | | | | [place] [address] | | | | | | [phone] | | | +--------+ + + + [...]
--- OUTSIDE RECORDS SUMMARY | ~2019-09-25 | XMS | Encounter Summary ---
Demographics + + + | Address | [address] | | | [place] [address] | + + + | Home Phone | | + + + | Preferred Language | Unknown | + + + | Marital Status | | + + + | Denominational Affiliation | 1013 | + + + | Race | Unknown | + + + | Ethnic Group | Unknown | + + + Author + + + | Author | [facility] | | | and [place] | + + + | Organization | [facility] | | | [...] Team Providers + +------+ + | Care Tray Worker Name | Role | Phone | + +------+ + | Yoav Bobby MD | PCP | | + +------+ + Reason for Visit +--------+ + | Reason | Comments | +--------+ + | Other | | +--------+ + Encounter Details +--------+ + + + + | Date | Type | Department | Care Team | Description | +--------+ + + + + | 09/15/ | Telephone | [facility] | Marifer, | Other | | 2016 | | MED CTR MEDICAL | Bo Guidry MD [address] | | | | | ONCOLOGY CLINIC [address] | [address] [place] | | | | | [address] [place] | [place] [address] | | | | | [place] [address] | [phone] | | | | | [phone] | | | +--------+ + + + [...]
--- OUTSIDE RECORDS SUMMARY | ~2019-09-25 | XMS | Encounter Summary ---
Demographics + + + | Address | [address] | | | [place] [address] | + + + | Home Phone | | + + + | Preferred Language | Unknown | + + + | Marital Status | | + + + | Methodist Affiliation | 1013 | + + + | Race | Unknown | + + + | Ethnic Group | Unknown | + + + Author + + + | Author | [facility] | | | and [place] | + + + | Organization | [facility] | | | [...] Team Providers + +------+ + | Care Certified Addiction Counselor Name | Role | Phone | + [...] | | | ONCOLOGY CLINIC [address] | [place], [place] | | | | | [address] | [address] | | | | | [place] [address] | | | | | | [phone] | | | +--------+ + + + [...]
--- OUTSIDE RECORDS SUMMARY | ~2019-09-25 | XMS | Encounter Summary ---
Demographics + + + | Address | [address] | | | [place] [address] | + + + | Home Phone | | + + + | Preferred Language | Unknown | + + + | Marital Status | | + + + | Christianity Affiliation | 1013 | + + + | Race | Unknown | + + + | Ethnic Group | Unknown | + + + Author + + + | Author | [facility] | | | and [place] | + + + | Organization | [facility] | | [...] Team Providers + +------+ + | Care Adzing And Boring Machine Feeder Name | Role | Phone | + +------+ + | Yoav Bobby MD | PCP | | + +------+ + Reason for Referral Diagnostic/Screening (Routine) +--------+--------+ + + + + | Status | Reason | Specialty | Diagnoses / | Referred By | Referred To | | | | | Procedures | Contact | Contact | +--------+--------+ + + + + | Closed | | Radiology | Diagnoses | Chandni | [address] | | | | | Breast | Kenya Mcallister | Yazmin Weaver | | | | | cancer of | MD [address] | [place], | | | | | upper-outer | [address] | [place] [address] | | | | | quadrant of | [place], | Phone: | | | | | left female | [place] [address] | [phone] | | | | | breast (HCC) | Phone: | Fax: | | | | | Procedures | [phone] | [phone] | | | | | CT | Fax: | | | | | | Treatment | [phone] | | | | | | Plan Complex | | | | | | | CT TX PLAN | | | +--------+--------+ + + + + Reason for Visit Diagnostic/Screening (Routine) +--------+--------+ + + + + | Status | Reason | Specialty | Diagnoses / | Referred By | Referred To | | | | | Procedures | Contact | Contact | +--------+--------+ + + + + | Closed | | Radiology | Diagnoses | Riegert, | [address] | | | | | Breast | Kenya Mcallister, | [place] | | | | | cancer of | MD [address] | [place], | | | | | upper-outer | [address] | [place] [address] | | | | | quadrant of | [place], | Phone: | | | | | left female | [place] [address] | [phone] | | | | | breast (HCC) | Phone: | Fax: | | | | | Procedures | [phone] | [phone] | | | | | CT | Fax: | | | | | | Treatment | [phone] | | | | | | Plan Complex | | | | | | | CT TX PLAN | | | +--------+--------+ + + + + Encounter Details +--------+ + + + + | Date | Type | Department | Care Team | Description | +--------+ + + + + | 09/27/ | Hospital | [facility] | Kenya Tariq | Breast cancer of | | 2016 | Encounter | MED CTR CT [address] | MD Esvin [address] | upper-outer quadrant | | | | [place], | [place] | of left female | | | | [place] [address] | [address] | breast (HCC) | | | | [phone] | | | +--------+ + + + [...] +---------+--------+ + documented as of this encounter Plan [...] | + +--------+ + + + | CT TREATMENT PLAN | Routin | 09/27/2016 | Breast cancer of | Results for this | | COMPLEX | e | 9:45 AM | upper-outer quadrant | procedure are in the | | | | PST | of left female | results section. | | | | | breast (HCC) | | + +--------+ + + + documented in this encounter Results CT Treatment Plan Complex (09/27/2016 9:45 AM PST) + + | Specimen | + + | | + + + + + | Narrative | Performed At | + + + | No Radiologist interpretation, please see Chart Review. | [facility] | + + + + +---------+ + + | Performing | Address | City/State/Zipcode | Phone Number | | Organization | | | | + +---------+ + + | [facility] | | | | + +---------+ + + documented in this encounter Visit Diagnoses + + | Diagnosis | + + | Breast cancer of upper-outer quadrant of left female breast (HCC) | + + documented in this encounter"
--- OUTSIDE RECORDS SUMMARY | ~2019-09-25 | XMS | Encounter Summary ---
Demographics + + + | Address | [address] | | | [place] [address] | + + + | Home Phone | | + + + | Preferred Language | Unknown | + + + | Marital Status | | + + + | Muslim Affiliation | 1013 | + + + | Race | Unknown | + + + | Ethnic Group | Unknown | + + + Author + + + | Author | [facility] | | | and [place] | + + + | Organization | [facility] | | | [...] Team Providers + +------+ + | Care Automotive Tire Tester Name | Role | Phone | + +------+ + PCP | Unavailable | + +------+ + Encounter Details +--------+ + + + + | Date | Type | Department | Care Team | Description | +--------+ + + + + | 09/26/ | Hospital | [facility] | | | | 2007 | Encounter | MED CTR XRAY [address] | | | | | | [place] | | | | | | [place] [address] | | | | | | [phone] | | | +--------+ + + + [...]
--- OUTSIDE RECORDS SUMMARY | ~2019-09-25 | XMS | Encounter Summary ---
Demographics + + + | Address | [address] | | | [place] [address] | + + + | Home Phone | | + + + | Preferred Language | Unknown | + + + | Marital Status | | + + + | Mormon Affiliation | 1013 | + + + | Race | Unknown | + + + | Ethnic Group | Unknown | + + + Author + + + | Author | [facility] | | | and [place] | + + + | Organization | [facility] | | | [...] Team Providers + +------+ + | Care Set Up Inspector Name | Role | Phone | + +------+ + | Yoav Bobby MD | PCP | | + +------+ + Reason for Visit + + + | Reason | Comments | + + + | IDT Note | | + + + Encounter Details +--------+ + + + + | Date | Type | Department | Care Team | Description | +--------+ + + + + | 10/01/ | Telephone | [facility] | Candace Naranjo, | DANISHA Note | | 2015 | | MED CTR RADIATION | RN | | | | | ONCOLOGY [address] | | | | | | [place], | | | | | | [place] [address] | | | | | | [phone] | | | +--------+ + + + [...]
--- OUTSIDE RECORDS SUMMARY | ~2019-09-25 | XMS | Encounter Summary ---
Demographics + + + | Address | [address] | | | [place] [address] | + + + | Home Phone | | + + + | Preferred Language | Unknown | + + + | Marital Status | | + + + | Caodaism Affiliation | 1013 | + + + | Race | Unknown | + + + | Ethnic Group | Unknown | + + + Author + + + | Author | [facility] | | | and [place] | + + + | Organization | [facility] | | [...] Team Providers + +------+ + | Care Poultry Pinner Name | Role | Phone | + [...] | | | ONCOLOGY CLINIC [address] | [place], [place] | | | | | [address] | [address] | | | | | [place] [address] | | | | | | [phone] | | | +--------+ + + + [...]
--- OUTSIDE RECORDS SUMMARY | ~2019-09-25 | XMS | Encounter Summary ---
Demographics + + + | Address | [address] | | | [place] [address] | + + + | Home Phone | | + + + | Preferred Language | Unknown | + + + | Marital Status | | + + + | Taoist Affiliation | 1013 | + + + | Race | Unknown | + + + | Ethnic Group | Unknown | + + + Author + + + | Author | [facility] | | | and [place] | + + + | Organization | [facility] | | | [...] Team Providers + +------+ + | Care Copying Machine Mechanic Name | Role | Phone | + [...] [place] | | | | | [address] [place] | [place] [address] | | | | | [place] [address] | [phone] | | | | | [phone] | | | +--------+ + + + [...]
--- OUTSIDE RECORDS SUMMARY | ~2019-09-25 | XMS | Encounter Summary ---
Demographics + + + | Address | [address] | | | [place] [address] | + + + | Home Phone | | + + + | Preferred Language | Unknown | + + + | Marital Status | | + + + | Sabianist Affiliation | 1013 | + + + | Race | Unknown | + + + | Ethnic Group | Unknown | + + + Author + + + | Author | [facility] | | | and [place] | + + + | Organization | [facility] | | | and [...] Team Providers + +------+ + | Care Animal Husbandman Name | Role | Phone | + [...] | MED CTR EXTERNAL | MD [address] | | | | | IMAGING | [place] | | | | | [phone] | [place] [address] | | +--------+ + + + + [...]
--- OUTSIDE RECORDS SUMMARY | ~2019-09-25 | XMS | Encounter Summary ---
Demographics + + + | Address | [address] | | | [place] [address] | + + + | Home Phone | | + + + | Preferred Language | Unknown | + + + | Marital Status | | + + + | Worship Affiliation | 1013 | + + + | Race | Unknown | + + + | Ethnic Group | Unknown | + + + Author + + + | Author | [facility] | | | and [place] | + + + | Organization | [facility] | | | [...] Team Providers + +------+ + | Care Furniture Designer Name | Role | Phone | + [...] | | ONCOLOGY CLINIC [address] | [address] [place], [place] | | | | | [address] [place] | [address] | | | | | [place] [address] | | | | | | [phone] | | | +--------+ + + + [...]
--- OUTSIDE RECORDS SUMMARY | ~2019-09-25 | XMS | Encounter Summary ---
Demographics + + + | Address | [address] | | | [place] [address] | + + + | Home Phone | | + + + | Preferred Language | Unknown | + + + | Marital Status | | + + + | Jainism Affiliation | 1013 | + + + [...] Team Providers + +------+ + | Care Tipping Machine Operator Automatic Name | Role | Phone | + +------+ + | Yoav Bobby MD | PCP | | + +------+ + Encounter Details +--------+ + + + + | Date | Type | Department | Care Team | Description | +--------+ + + + + | 09/13/ | Abstract | [facility] | Arlene Ramirez | | | 2015 | | MED CTR MEDICAL | P, RN | | | | | ONCOLOGY CLINIC [address] | | | | | | [address] | | | | | | [place] [address] | | | | | | [phone] | | | +--------+ + + + [...]
--- OUTSIDE RECORDS SUMMARY | ~2019-09-25 | XMS | Encounter Summary ---
Demographics + + + | Address | [address] | | | [place] [address] | + + + | Home Phone | | + + + | Preferred Language | Unknown | + + + | Marital Status | | + + + | Evangelical Affiliation | 1013 | + + + | Race | Unknown | + + + | Ethnic Group | Unknown | + + + Author + + + | Author | [facility] | | | and [place] | + + + | Organization | [facility] | | [...] Team Providers + +------+ + | Care Academic Assistant Name | Role | Phone | [...] cancer of | MD [address] | [place], | | | | | upper-outer | [address] | [place] [address] | | | | | quadrant of | [place], | Phone: | | | | | left female | [place] [address] | [phone] | | | | | breast (HCC) | Phone: | Fax: | | | | | Procedures | [phone] | [phone] | | | | | CT | Fax: | | | | | | Treatment | [phone] | | | | | | Plan [...] | Breast | Kenya Mcallister, | [address] [place] | | | | | cancer of | MD [address] | [place], | | | | | upper-outer | [address] | [place] [address] | | | | | quadrant of | [place], | Phone: | | | | | left female | [place] [address] | [phone] | | | | | breast (HCC) | Phone: | Fax: | | | | | Procedures | [phone] | [phone] | | | | | CT | Fax: | | | | | | Treatment | [phone] | | | | | | Plan Complex | | | | | | | CT TX PLAN | | | +--------+--------+ + + + + Encounter Details +--------+ + + + + | Date | Type | Department | Care Team | Description | +--------+ + + + + | 09/27/ | Hospital | [facility] | Kenya Tariq | Breast cancer of | | 2016 | Encounter | MED CTR CT [address] | MD Esvin [address] | upper-outer quadrant | | | | [place], | [place] | of left female | | | | [place] [address] | [address] | breast (HCC) | | | | [phone] | | | +--------+ + + + [...]
--- OUTSIDE RECORDS SUMMARY | ~2019-09-25 | XMS | Encounter Summary ---
Demographics + + + | Address | [address] | | | [place] [address] | + + + | Home Phone | | + + + | Preferred Language | Unknown | + + + | Marital Status | | + + + | Mu-Ism Affiliation | 1013 | + + + | Race | Unknown | + + + | Ethnic Group | Unknown | + + + Author + + + | Author | [facility] | | | and [place] | + + + | Organization | [facility] | | | [...] Team Providers + +------+ + | Care Director Of Sleep Name | Role | Phone | + +------+ + | Yoav Bobby MD | PCP | | + +------+ + Encounter Details +--------+ + + + + | Date | Type | Department | Care Team | Description | +--------+ + + + + | 10/29/ | [facility] | [facility] | Kenya Tariq | | | 2017 | Encounter | MED CTR RADIATION | MD Esvin [address] | | | | | ONCOLOGY [address] [place], [place] | | | | | [place], | [address] | | | | | [place] [address] | | | | | | [phone] | | | +--------+ + + + [...] La Paz DO - 11/11/2016 6:[address] Weekly On Treatment Note Name: Thea Bey ID: [id number] Date of Service:11/11/2016 ICD-9 and Description: C50.912 [...] 6:21:53 PM Page 1 of 2 CSN: [id number] signed by Michael De La Paz DO [...]
--- OUTSIDE RECORDS SUMMARY | ~2019-09-25 | XMS | Encounter Summary ---
Demographics + + + | Address | [address] | | | [place] [address] | + + + | Home Phone | | + + + | Preferred Language | Unknown | + + + | Marital Status | | + + + | Zoroastrianism Affiliation | 1013 | + + + | Race | Unknown | + + + | Ethnic Group | Unknown | + + + Author + + + | Author | [facility] | | | and [place] | + + + | Organization | [facility] | | | and [...] Team Providers + +------+ + | Care Cloth Examiner Hand Name | Role | Phone | + +------+ + | Yoav Bobby MD | PCP | | + +------+ + Encounter Details +--------+ + + + + | Date | Type | Department | Care Team | Description | +--------+ + + + + | 11/17/ | Documentati | [facility] | Erna Hernandez, | | | 2016 | on | MED CTR MEDICAL | RN | | | | | ONCOLOGY CLINIC [address] | | | | | | [address] | | | | | | [place] [address] | | | | | | [phone] | | | +--------+ + + + [...] documented as of this encounter Progress Notes Erna Hernandez, RN - 11/17/2016 2:20 PM PSTI met with Thea Wellington" today to deliver her survivorship care plan. Eliz finishes treatment in two days, and as I was unable to meet wit h her at the time of treatment completion, she preferred to meet today instead of coming in at a later time as she is from out of town. Eliz had no further questions at this time about her care plan. Notified Eliz I would be calling in one month to follow up and discuss any qu estions she may have. Let her know if there are any questions before then, she is welcome to call me anytime, contact information provided. Eliz filled out the NCCN distress thermometer and results are as follows: overall distress . Problems noted were "fears" (she indicates her 2 years ago and sometimes n oises in her house scare her now that she is living alone), "bathing/dressing" (she states s he has just been concerned about washing off the markings for her radiation treatment but sh e will be fine once her treatment is over), "diarrhea" (she states it is more frequency than actual diarrhea which she attributes possibly to just some nerves about going through cance r treatment) and "sleep" (she states since her it has been difficult to adjust to being alone in her house. She has started taking a sleep aid and this is helping). Eliz de nied any needs with these issues or any needs at all therefore, no further referrals to be r ecommended by survivorship coordinator. She states she has a great support system with her f riends and family. We discussed her activity level as she told me her baseline is zero activ ity. I strongly encouraged her to start walking especially as the weather improves this will be easier. I gave her information about a free resource to her in [place] , [place] at the [employer] where she qualifies for a free year of membership in [facility] I[facility] program. Eliz said she would look into this. I also encouraged basic stretch ing of her arm on the treated side and scar massage. She does not currently report any issue s but I let her know about our rehab program and told her to let me know if she was experien cing any pain, swelling or discomfort in her treated breast or down her arm. [facility]iz [facility] tomorrow for her weekly check and I encouraged her to make a follow up appointment with Dr. Lucio and anticipate that she will want to see her in 3 months. 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 Caicedo at this point. Eliz also regularly s ees her PCP and I let her know I would send a copy of her survivorship care plan to Dr. Bobby . In addition to the survivorship care plan, the following resources were provided today: inf ormation about local and national support groups, [facility], nutrition during and after cancer treatment including mediterranean/anti-inflammation diets, fact sheet on coping with the fear of recurrence and a booklet titled After Treatment Ends: Tools for the Adult Cance r Survivor. documented in this encounter Plan of Treatment +--------+ + + + + | Date | Type | Specialty | Care Team | Description | +--------+ + + + + | 10/23/ | Appointment | Radiation Oncology | | | | 2018 | | | | | +--------+ + + + + documented as of this encounter Visit Diagnoses Not on filedocumented in this encounter
--- OUTSIDE RECORDS SUMMARY | ~2019-09-25 | XMS | Encounter Summary ---
Demographics + + + | Address | [address] | | | [place] [address] | + + + | Home Phone | | + + + | Preferred Language | Unknown | + + + | Marital Status | | + + + | Restorationism Affiliation | 1013 | + + + | Race | Unknown | + + + | Ethnic Group | Unknown | + + + Author + + + | Author | [facility] | | | and [place] | + + + | Organization | [facility] | | [...] Team Providers + +------+ + | Care Logging Crew Supervisor Name | Role | Phone | + +------+ + PCP | Unavailable | + +------+ + Encounter Details +--------+ + + + + | Date | Type | Department | Care Team | Description | +--------+ + + + + | 01/03/ | Hospital | [facility] | | | | 1994 | Encounter | MED CTR XRAY [address] | | | | | | [address] | | | | | | [place] [address] | | | | | | [phone] | | | +--------+ + + + [...]
--- OUTSIDE RECORDS SUMMARY | ~2019-09-25 | XMS | Encounter Summary ---
Demographics + + + | Address | [address] | | | [place] [address] | + + + | Home Phone | | + + + | Preferred Language | Unknown | + + + | Marital Status | | + + + | Latter Day Affiliation | 1013 | + + + | Race | Unknown | + + + | Ethnic Group | Unknown | + + + Author + + + | Author | [facility] | | | and [place] | + + + | Organization | [facility] | | | and [...] Team Providers + +------+ + | Care Clergy Member Name | Role | Phone | + +------+ + PCP | Unavailable | + +------+ + Encounter Details +--------+ + + + + | Date | Type | Department | Care Team | Description | +--------+ + + + + | 10/15/ | Hospital | [facility] | | | | 1992 - | Encounter | MED CTR GENERIC OP | | | | | | CONV DEPT [address] | | | | 03/08/ | | [place], | | | | 1994 | | [place] [address] | | | | | | [phone] | | | +--------+ + + + [...]
--- OUTSIDE RECORDS SUMMARY | ~2019-09-25 | XMS | Encounter Summary ---
Demographics + + + | Address | [address] | | | [place] [address] | + + + | Home Phone | | + + + | Preferred Language | Unknown | + + + | Marital Status | | + + + | Latter Day Affiliation | 1013 | + + + | Race | Unknown | + + + | Ethnic Group | Unknown | + + + Author + + + | Author | [facility] | | | and [place] | + + + | Organization | [facility] | | | and [...] Team Providers + +------+ + | Care Per Diem Physical Therapist Name | Role | Phone | + [...] | | | | | | [place] [address] | | | | | | [phone] | | | +--------+ + + + [...]
--- OUTSIDE RECORDS SUMMARY | ~2019-09-25 | XMS | Encounter Summary ---
Demographics + + + | Address | [address] | | | [place] [address] | + + + | Home Phone [...] Team Providers + +------+ + | Care Assistant Professor Of Business Name | Role | Phone | + [...] | | | ONCOLOGY CLINIC [address] | [place], [place] | | | | | [address] | [address] | | | | | [place] [address] | | | | | | [phone] | | | +--------+ + + + [...]
--- OUTSIDE RECORDS SUMMARY | ~2019-09-25 | XMS | Encounter Summary ---
Demographics + + + | Address | [address] | | | [place] [address] | + + + | Home Phone | | + + + | Preferred Language | Unknown | + + + | Marital Status | | + + + | Methodist Affiliation | 1013 | + + + | Race | Unknown | + + + | Ethnic Group | Unknown | + + + Author + + + | Author | [facility] | | | and [place] | + + + | Organization | [facility] | | | and [...] Team Providers + +------+ + | Care Fishing Vessel Mate Name | Role | Phone | + +------+ + | Yoav Bobby MD | PCP | | + +------+ + Encounter Details +--------+ + + + + | Date | Type | Department | Care Team | Description | +--------+ + + + + | 09/28/ | Hospital | [facility] | Kenya Tariq | | | 2016 | Encounter | MED CTR RADIATION | MD Esvin [address] | | | | | ONCOLOGY [address] | [address] [place], [place] | | | | | [place], | [address] | | | | | [place] [address] | | | | | | [phone] | | | +--------+ + + + [...]
--- OUTSIDE RECORDS SUMMARY | ~2019-09-25 | XMS | Encounter Summary ---
Demographics + + + | Address | [address] | | | [place] [address] | + + + | Home Phone | | + + + | Preferred Language | Unknown | + + + | Marital Status | | + + + | Bahai Affiliation | 1013 | + + + [...] Team Providers + +------+ + | Care Tanning Solution Maker Name | Role | Phone | + +------+ + PCP | Unavailable | + +------+ + Encounter Details +--------+ + + + + | Date | Type | Department | Care Team | Description | +--------+ + + + + | 10/15/ | Hospital | [facility] | | | | 1992 - | Encounter | MED CTR GENERIC OP | | | | | | CONV DEPT [address] | | | | 03/08/ | | [place], | | | | 1994 | | [place] [address] | | | | | | [phone] | | | +--------+ + + + [...]
--- OUTSIDE RECORDS SUMMARY | ~2019-09-25 | XMS | Encounter Summary ---
Demographics + + + | Address | [address] | | | [place] [address] | + + + | Home Phone | | + + + | Preferred Language | Unknown | + + + | Marital Status | | + + + | Adventist Affiliation | 1013 | + + + | Race | Unknown | + + + | Ethnic Group | Unknown | + + + Author + + + | Author | [facility] | | | and [place] | + + + | Organization | [facility] | | | [...] Team Providers + +------+ + | Care Pile Fabric Knitter Name | Role | Phone | + [...] | | | | | | [place] [address] | | | | | | [phone] | | | +--------+ + + + [...]
--- OUTSIDE RECORDS SUMMARY | ~2019-09-25 | XMS | Encounter Summary ---
Demographics + + + | Address | [address] | | | [place] [address] | + + + | Home Phone | | + + + | Preferred Language | Unknown | + + + | Marital Status | | + + + | Taoist Affiliation | 1013 | + + + | Race | Unknown | + + + | Ethnic Group | Unknown | + + + Author + + + | Author | [facility] | | | and [place] | + + + | Organization | [facility] | | [...] Team Providers + +------+ + | Care Studio Artist Name | Role | Phone | + [...] | | ONCOLOGY CLINIC [address] | [address] [place], [place] | | | | | [address] | [address] | | | | | [place] [address] | | | | | | [phone] | | | +--------+ + + + [...]
--- OUTSIDE RECORDS SUMMARY | ~2019-09-25 | XMS | Encounter Summary ---
Demographics + + + | Address | [address] | | | [place] [address] | + + + | Home Phone | | + + + | Preferred Language | Unknown | + + + | Marital Status | | + + + | Restoration Affiliation | 1013 | + + + | Race | Unknown | + + + | Ethnic Group | Unknown | + + + Author + + + | Author | [facility] | | | and [place] | + + + | Organization | [facility] | | | [...] Team Providers + +------+ + | Care Research Associate Policy Name | Role | Phone | + +------+ + | Yoav Bobby MD | PCP | | + +------+ + Encounter Details +--------+ + + + + | Date | Type | Department | Care Team | Description | +--------+ + + + + | 09/28/ | Hospital | [facility] | Kenya Tariq | | | 2016 | Encounter | MED CTR RADIATION | MD Esvin [address] | | | | | ONCOLOGY [address] [place], [place] | | | | | [place], | [address] | | | | | [place] [address] | | | | | | [phone] | | | +--------+ + + + [...]
--- OUTSIDE RECORDS SUMMARY | ~2019-09-25 | XMS | Encounter Summary ---
Demographics + + + | Address | [address] | | | [place] [address] | + + + | Home Phone | | + + + | Preferred Language | Unknown | + + + | Marital Status | | + + + | Sabianist Affiliation | 1013 | + + + | Race | Unknown | + + + | Ethnic Group | Unknown | + + + Author + + + | Author | [facility] | | | and [place] | + + + | Organization | [facility] | | | [...] Providers + +------+ + | Care Director Speech Language Name | Role | Phone | + +------+ + PCP | Unavailable | + +------+ + Encounter Details +--------+ + + + + | Date | Type | Department | Care Team | Description | +--------+ + + + + | 09/26/ | Hospital | [facility] | | | | 2007 | Encounter | MED CTR XRAY [address] | | | | | | [address] | | | | | | [place] [address] | | | | | | [phone] | | | +--------+ + + + [...]
--- OUTSIDE RECORDS SUMMARY | ~2019-09-25 | XMS | Clinical Summary ---
Demographics + + + | Address | [address] | | | [place] [address] | + + + | Home Phone | | + + + | Preferred Language | Unknown | + + + | Marital Status | | + + + | Orthodoxy Affiliation | Unknown | + + + | Race | Unknown | + + + | Ethnic Group | Unknown | + + + Author + + + | Author | [facility] ([facility]ical [facility] of | | | 06-09-19) | + + + | Organization | [facility] (Historical as of | | | 06-09-19) [...] Team Providers + +------+ + | Care Recreation Teacher Name | Role | Phone | [...] [place] - MOD[place] | [place] - | [id number] | Medica | | | | | [...] | [place] | | | [address] | [address] | + +--------+ +--------+ + +
--- OUTSIDE RECORDS SUMMARY | ~2019-09-25 | XMS | Clinical Summary ---
Demographics + + + | Address | [address] | | | [place] [address] | + + + | Home Phone | | + + + | Preferred Language | Unknown | + + + | Marital Status | | + + + | Rastafari Affiliation | Unknown | + + + | Race | Unknown | + + + | Ethnic Group | Unknown | + + + Author + + + | Author | [facility] (Historical as of | | | 06-09-19) | + + + | Organization | [facility] (Historical as of | | | 06-09-19) [...] Team Providers + +------+ + | Care Shot Polisher Name | Role | Phone | + [...] MA - MOD[place] | [place] - | [id number] | Medica | | | | | [...] | [place] | | | [address] | [address] | + +--------+ +--------+ + +
--- OUTSIDE RECORDS SUMMARY | ~2019-09-25 | XMS | Encounter Summary ---
Demographics + + + | Address | [address] | | | [place] [address] | + + + | Home Phone | | + + + | Preferred Language | Unknown | + + + | Marital Status | | + + + | Buddhism Affiliation | 1013 | + + + | Race | Unknown | + + + | Ethnic Group | Unknown | + + + Author + + + | Author | [facility] | | | and [place] | + + + | Organization | [facility] | | | [...] Providers + +------+ + | Care Business Intelligence Analyst Name | Role | Phone | [...] [place], [place] | | | | | [place], | [address] | | | | | [place] [address] | | | | | | [phone] | | | +--------+ + + + [...]
--- OUTSIDE RECORDS SUMMARY | ~2019-09-25 | XMS | Encounter Summary ---
Demographics + + + | Address | [address] | | | [place] [address] | + + + | Home Phone | | + + + | Preferred Language | Unknown | + + + | Marital Status | | + + + | Zoroastrian Affiliation | 1013 | + + + | Race | Unknown | + + + | Ethnic Group | Unknown | + + + Author + + + | Author | [facility] | | | and [place] | + + + | Organization | [facility] | | | and [...] Team Providers + +------+ + | Care Group Burner Machine Name | Role | Phone | + +------+ + | Yoav Bobby MD | PCP | | + +------+ + Reason for Visit +--------+ + | Reason | Comments | +--------+ + | Other | Survivorship | +--------+ + Encounter Details +--------+ + + + + | Date | Type | Department | Care Team | Description | +--------+ + + + + | 12/20/ | Telephone | [facility] | Erna Hernandez, | Other (Survivorship) | | 2017 | | MED CTR MEDICAL | RN | | | | | ONCOLOGY CLINIC [address] | | | | | | [address] | | | | | | [place] [address] | | | | | | [phone] | | | +--------+ + + + [...]
--- OUTSIDE RECORDS SUMMARY | ~2019-09-25 | XMS | Encounter Summary ---
Demographics + + + | Address | [address] | | | [place] [address] | + + + | Home Phone | | + + + | Preferred Language | Unknown | + + + | Marital Status | | + + + | Lutheran Affiliation | 1013 | + + + [...] Team Providers + +------+ + | Care Precision Layout Worker Name | Role | Phone | [...] | | | | quadrant of | [place] | [place], | | | | | left female | [address] | [place] [address] | | | | | breast (HCC) | [place], | Phone: | | | | | Procedures | [place] | [phone] | | | | | [place] OFFICE | [address] | Fax: | | | | | OUTPATIENT | Phone: | [phone] | | | | | VISIT 25 | [phone] | | | | | | MINUTES | Fax: | | | | | | | [phone] | | +--------+--------+ + + + + Encounter Details +--------+ + + + + | Date | Type | Department | Care Team | Description | +--------+ + + + + | 02/23/ | Hospital | [facility] | Kenya Tariq | Encounter for | | 2017 | Encounter | MED CTR RADIATION | MD Esvin [address] | screening mammogram | | | | ONCOLOGY [address] [place], [place] | for high-risk | | | | [place], | [address] | patient (Primary Dx) | | | | [place] [address] | | | | | | [phone] | | | +--------+ + + + [...] 3:17 PM PDTSchedule [facility] 2017 Increase activity by [...] Srinivasan MD - 02/23/2017 [facility] PATIENT: Thea Bey MR#: [id number] :1945 DOS:02/23/2017 ICD/Diagnosis: C50.912 - Malignant neoplasm [...] margin, no LVIS, PNI present, ER 0%, WI 0%, H er2 non-amplified, Ki-67 60%, 0/2 [...] Exam performed in the presence of a executive steward. On upright exam breasts appear sym metric [...] margin, no LVIS, PNI present, ER 0%, WI 0%, Her2 non-amplified, Ki-6 7 60%, 0/2 [...] M.D. Radiation Oncologist Department of Radiation Oncology [facility] Electronically signed by Kenya Srinivasan M.D CC: Noé Liao M.D. Oscar Bobby M.D. Bo Caicedo M.D. This note was transcribed using [employer] speech recognition software. As a result, there ma y be unintended for medical and/or spelling errors. Every attempt is made to correct dicta tion. If there are any questions or errors please contact our office. CSN: [id number] signed by Kenya Srinivasan MD at 03/12/2017 [...]
--- OUTSIDE RECORDS SUMMARY | ~2019-09-25 | XMS | Encounter Summary ---
Demographics + + + | Address | [address] | | | [place] [address] | + + + | Home Phone | | + + + | Preferred Language | Unknown | + + + | Marital Status | | + + + | Taoist Affiliation | 1013 | + + + | Race | Unknown | + + + | Ethnic Group | Unknown | + + + Author + + + | Author | [facility] | | | and [place] | + + + | Organization | [facility] | | [...] Team Providers + +------+ + | Care Epic Willow Analyst Name | Role | Phone | [...] + | 09/27/ | Documentati | [facility] | Apollo Dhillon, | Psychosocial Support | | 2016 | on | MED CTR MEDICAL | WHISKEY FILTERER | | | | | ONCOLOGY CLINIC [address] | | | | | | [address] | | | | | | [place] [address] | | | | | | [phone] | | | +--------+ + + + [...] for jo st cancer. She lives in [place], [place]. Eliz is covered by [employer] Medicare [...] coping skills and st donal ramandeep. This Real Estate Administrator allowed for expression of feeling and provided supportive counseling and information regarding the emotional aspects of a cancer diagnosis and treatment. Encourage d Eliz to attend community support group and offered literature on patient s diagnosis. This Real Estate Administrator and Grain Oilseed Or Pasture Grower are available to provide emotional support an [...]
--- OUTSIDE RECORDS SUMMARY | ~2019-09-25 | XMS | Encounter Summary ---
Demographics + + + | Address | [address] | | | [place] [address] | + + + | Home Phone | | + + + | Preferred Language | Unknown | + + + | Marital Status | | + + + | Muslim Affiliation | 1013 | + + + | Race | Unknown | + + + | Ethnic Group | Unknown | + + + Author + + + | Author | [facility] | | | and [place] | + + + | Organization | [facility] | | [...] Team Providers + +------+ + | Care Salvage Engineering Technician Name | Role | Phone | [...] | | [address] | [place] [address] | | | | | [address] | [phone] | | | | | [phone] | | | +--------+ + + + [...] MV A Dominik: 0.78 m/s MV Dec Gosper: 1.85 m/s2 MV | | | DecT: [...] TR Vmax: | | | 2.26 m/s Gambling Supervisor: TRINA Authenticated by: Ankita Britton | | [...] cmLVIDd: 3.98 cmLVPWd: 0.83 cmLVOT Area: 3.62 [id number] Diam: 2.14 | | cm%FS: 32.84 %EF(Teich): [...] (A-L): 14.52 ml/m2LAAs | | A2C: 12.21 [id number] A-L A2C: 28.55 mlLALs A2C: 4.43 cmLAAs A4C: 10.23 [id number] | | A-L A4C: 21.30 mlLALs A4C: 4.17 cmRAAs: 11.64 [id number] A-L: 25.86 mlRAESV MOD: | | 25.17 mlRALs: 4.44 cmTAPSE: 1.80 cmAV maxP.07 mmHgAV meanP.38 mmHgAV | | Vmax: 1.12 m/Coreen Vmean: 0.70 m/Coreen VTI: 18.38 cmAVA Vmax: 2.58 cm2AVA (VTI): | | 2.95 nb1AVVF maxP.57 mmHgLVOT meanP.37 mmHgLVSI Dopp: 31.04 ml/m2LVSV | | Dopp: 54.32 mlLVOT Vmax: 0.80 m/sLVOT Vmean: 0.53 m/sLVOT VTI: 15.00 cmMV A Dominik: | | 0.78 m/sMV Dec Gosper: 1.85 m/s2MV DecT: 283.47 msMV E Dominik: 0.52 m/sMV E/A | | Ratio: 0.67MV PHT: 82.20 msMVA By PHT: 2.67 ac9Nkcqnb e': 0.06 m/sSeptal E/e': | | 8.11Lateral e': 0.06 m/sLateral E/e': 8.16RAP: 5 mmHgRVSP: 25.51 mmHgTR maxPG: | | 20.51 mmHgTR Vmax: 2.26 m/s Gambling Supervisor: DHAuthenticated by: Ankita Samayoa | | Date/Time: [...] A Dominik: 0.78 m/s | |MV Dec Gosper: 1.85 m/s2 | |MV DecT: 283.47 ms [...] |TR Vmax: 2.26 m/s | | | |Gambling Supervisor: | |Authenticated by: Ankita rBitton | |Report Date/Time: 08-10-2018 18:21:1 | | [...]
--- OUTSIDE RECORDS SUMMARY | ~2019-09-25 | XMS | Encounter Summary ---
Demographics + + + | Address | [address] | | | [place] [address] | + + + | Home Phone | | + + + | Preferred Language | Unknown | + + + | Marital Status | | + + + | Church Affiliation | 1013 | + + + [...] Team Providers + +------+ + | Care Workforce Development Specialist Name | Role | Phone | + +------+ + | Reilly Garcia MD | PCP | | + +------+ + Reason for Visit + + + | Reason | Comments | + + + | Breast Cancer | | + + + | Follow-up | | + + + Evaluate & Treat (Routine) +--------+--------+ + + + + | Status | Reason | Specialty | Diagnoses / | Referred By | Referred To | | | | | Procedures | Contact | Contact | +--------+--------+ + + + + | Closed | | Radiation | Diagnoses | Diamante, | Chandni, | | | | Oncology | Malignant | Yoav | Kenya Mcallister MD | | | | | neoplasm of | MD Oscar | [address] | | | | | upper-outer | [address] | | | | | quadrant of | [place] | [place], | | | | | left female | [address] | [place] [address] | | | | | breast (HCC) | [place], | Phone: | | | | | Procedures | [place] | [phone] | | | | | [place] OFFICE | [address] | Fax: | | | | | OUTPATIENT | Phone: | [phone] | | | | | VISIT 25 | [phone] | | | | | | MINUTES | Fax: | | | | | | | [phone] | | +--------+--------+ + + + + Encounter Details +--------+ + + + + | Date | Type | Department | Care Team | Description | +--------+ + + + + | 02/10/ | Hospital | [facility] | Kenya Tariq | Malignant neoplasm | | 2018 | Encounter | MED CTR RADIATION | MD Esvin [address] | of upper-outer | | | | ONCOLOGY CLINIC [address] | [address] [place], [place] | quadrant of left | | | | [address] [place] | [address] | breast in female, | | | | [place] [address] | | estrogen receptor | | | | [phone] | | negative (HCC) | | | | | | (Primary Dx); Breast | | | | | | cancer screening, | | | | | | high risk patient | +--------+ + + + + Social [...] + + + | Blood Pressure | 170/75 | 02/10/2018 10:49 AM | | | | | PDT | | + + + + + | Pulse | 72 | 02/10/2018 10:49 AM | | | [...] + + + + | Weight | 79 kg (174 lb 2.6 | 02/10/2018 10:49 AM | | | | oz) | PDT | | + + + + + | Height | - | - | | + + + + + | Body Mass Index | 32.91 | 09/14/2016 1:52 PM | | | | | PST | | + + + + + documented in this encounter Medications at Time [...] as of this encounter Progress Notes Kenya Owens MD - 02/10/2018 9:34 AM PDT Radiation Oncology Follow-up Chief Complaint/ICD10 ICD-10-CM ICD-9-CM 1. 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 She has undergone lumpecto my and sentinel lymph node biopsy, declined adjuvant chemotherapy. Completed adjuvant whol e breast radiation with 40.05 Gy in 15 Gy and lumpectomy boost of 10 Gy in 5 fractions, . Eliz was last seen on 02/23/17. In the interim she has followed with her PCP, Dr. Yoav Bobby and Dr. Caicedo in [place]. She comes to clinic today with a friend. Her f riend and primary care notes indicate that worsening memory changes, dimension have been an increasing problem. She is awaiting neuro cognitive testing. Strong family history of Alzh eimer's. Today, Eliz is very pleasant. She does not endorse any breast concerns. Denies pain or swe lling. She has not experience any recent headaches, vision changes, numbness or weakness. She denies any new areas of musculoskeletal pain. Screening/surveillance breast imaging: -Bilateral screening mammogram on 08/02/17 demonstrated new pleomorphic calcifications in t he left breast, anterior to lumpectomy scar. BI-RADS Category 4 -Stereotactic biopsy performed on 08/09/17. Pathology demonstrated fibrosis and fat necros is with coarse microcalcifications, negative for malignancy. ROS REVIEW OF SYSTEMS Constitutional: Denies fatigue. Denies high fevers, shaking chills, anorexia, nausea, vomit ing, weight loss, or night sweats. Appetite without changes. Ear, Nose, Mouth, Throat: Denies odynophagia, dysphagia, or tinnitus. Cardiovascular: Denies shortness of breath, dyspnea on exertion, chest pain, palpitations o r orthopnea. Respiratory: Denies cough, hemoptysis, or sputum production. Gastrointestinal: Reports diarrha and constipation alternating. Denies abdominal pain, me daryl, or bright red blood per rectum. Genitourinary: Reports recent bladder infection. Denies hematuria or dysuria. Musculoskeletal: Denies joint pain or tenderness. Neurologic: Denies headache, visual changes, or numbness/tingling of the extremities. Endocrine: Denies peripheral edema or heat/cold intolerance. Hematologic: Denies spontaneous bruising or bleeding. Integumentary: Denies rash, wounds or other skin concerns. Pain: Denies pain. Pain assessment: Location: NA Pain Level: 0 Current Outpatient Prescriptions Medication Sig Dispense Refill [...] No current facility-administered medications for this encounter. Allergies Allergen Reactions Cephalosporins Not Noted Nsaids Not Noted Penicillins Not Noted Quinolones Not Noted Sulfa Antibiotics Not Noted Intolerance No active intolerances/contraindications There were no vitals filed for this visit. Wt Readings from Last 3 Encounters: 09/14/16 76.3 kg (168 lb 3.2 oz) Physical Exam: General: Healthy appearing older woman in no acute medical distress. KPS: 70 HEENT: Pupils equal, round and reactive to light. No conjunctival icterus or injection. EOM I. Oral, moist mucus membranes. Lymphatic: No cervical, supraclavicular or axillary lymphadenopathy. Cardiovascular: Regular rate and rhythm, no murmur. Pulmonary: Breath sounds heard throughout, no adventitial sounds or increased work of breat sarah at rest. Extremities: Upper and lower extremities warm and well perfused with no upper or lower extr emity edema. Neurologic: Alert, oriented and appropriated in conversation. CN II-IX grossly intact. Moves all 4 extremities normally with normal gait. Psychiatric: Appropriate, distant Breast: On upright exam breasts appear symmetric bilaterally with no contour abnormalities or malignant appearing skin changes. The left breast demonstrates a well-healed surgical in cision. On supine exam palpation of the left breast demonstrates moderate fibrosis at the s ite of prior lumpectomy. No discrete mass lesions are identified in either breast. There i s no pain with palpation. No nipple changes. Labs: No recent results. Imaging: See HPI Assessment: ICD-10-CM ICD-9-CM 1. 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 She has undergone lumpecto my and sentinel lymph node biopsy, declined adjuvant chemotherapy. Completed adjuvant whol e breast radiation with 40.05 Gy in 15 Gy and lumpectomy boost of 10 Gy in 5 fractions, . Clinical exam and history are benign. Neurocognitive changes not felt to be related to mal ignancy. She is encouraged to follow-up with primary care physician and undergo neuropsychi atric referral as directed. She will also continue to follow with Dr. Caicedo for breas t cancer surveillance. We discussed the plan for her to return in 1 year for clinical exam here. Repeat left breast mammogram recommended at this time. Orally placed at [facility]. Bila teral screening mammogram due in July. Thank you for allowing me to participate in the care of Thea Bey. If you should enriquez ve any questions regarding this evaluation, please do not hesitate to contact me. Kenya Mitchell M.D. Radiation Oncologist Department of Radiation Oncology [facility] Office: [phone] CC: Patient Care Team: Yoav Bobby as PCP - General (Internal Medicine) Roshan Franklin as Physician (General Surgery) Kenya Owens MD as Physician (Radiation Oncology) Cheo Veliz MD, FACS as Physician (General Surgery) Bo Caicedo MD as Consulting Physician (Medical Oncology) documented in thi s encounter Plan of Treatment +--------+ + + [...] | + +---------+--------+ + + | [facility] | Imaging | Routin | Malignant Neoplasm | Expected: | | Diagnostic Left | | e | Of Upper-Outer | 02/20/2018, Expires: | | | | | Quadrant Of Left | 04/22/2019 | | | | | Breast In Female, | | | | | | Estrogen Receptor | | | | | | Negative (Hcc) | | + +---------+--------+ + + | [facility] | Imaging | Routin | Breast cancer | Expected: | | Screening Bilateral | | e | screening, high risk | 07/31/2018, Expires: | | | | | patient | 04/22/2019 | + +---------+--------+ + + documented as of this encounter Procedures + +--------+ + + + | Procedure Name | Priori | Date/Time | Associated Diagnosis | Comments | | | ty | | | | + +--------+ + + + | IMAGING REPORT - | | 08/30/2019 | | Results for this | | EXTERNAL SCAN | | 12:00 AM | | procedure are in the | | | | PST | | results section. | + +--------+ + + + | IMAGING REPORT - | | 08/25/2018 | | Results for this | | EXTERNAL SCAN | | 12:00 AM | | procedure are in the | | | | PDT | | results section. | + +--------+ + + + documented in this encounter Results IMAGING REPORT - EXTERNAL SCAN (08/30/2019 12:00 AM PST) + + + | Narrative | Performed At | + + + | Ordered by an | | | unspecified provider. | | + + + IMAGING REPORT - EXTERNAL SCAN (08/25/2018 12:00 AM PDT) + + + | Narrative | Performed At | + + + | Ordered by an | | | unspecified provider. | | + + + documented in this encounter Visit Diagnoses + + | Diagnosis | + + | Malignant neoplasm of upper-outer quadrant of left breast in female, estrogen receptor | | negative (HCC) - Primary | + + | Breast cancer screening, high risk patient Screening mammogram for high-risk patient | + + documented in this encounter"
--- OUTSIDE RECORDS SUMMARY | ~2019-09-25 | XMS | Encounter Summary ---
Demographics + + + | Address | [address] | | | [place] [address] | + + + | Home Phone | | + + + | Preferred Language | Unknown | + + + | Marital Status | | + + + | Hoahaoism Affiliation | 1013 | + + + [...] Team Providers + +------+ + | Care Income Tax Manager Name | Role | Phone | + +------+ + | Yoav Bobby MD | PCP | | + +------+ + Encounter Details +--------+ + + + + | Date | Type | Department | Care Team | Description | +--------+ + + + + | 10/29/ | [facility] | [facility] | Kenya Tariq | | | 2017 | Encounter | MED CTR RADIATION | MD Esvin [address] | | | | | ONCOLOGY [address] [place], [place] | | | | | [place], | [address] | | | | | [place] [address] | | | | | | [phone] | | | +--------+ + + + [...] La Paz DO - 11/11/2016 6:21 PM [facility] Weekly On Treatment Note Name: Thea Bey ID: [id number] Date of Service:11/11/2016 ICD-9 and Description: C50.912 [...] 6:21:53 PM Page 1 of 2 CSN: [id number] signed by Michael De La Paz DO [...]
--- OUTSIDE RECORDS SUMMARY | ~2019-09-25 | XMS | Encounter Summary ---
Demographics + + + | Address | [address] | | | [place] [address] | + + + | Home Phone | | + + + | Preferred Language | Unknown | + + + | Marital Status | | + + + | Mormon Affiliation | 1013 | + + + | Race | Unknown | + + + | Ethnic Group | Unknown | + + + Author + + + | Author | [facility] | | | and [place] | + + + | Organization | [facility] | | | [...] Providers + +------+ + | Care Medical Researcher Name | Role | Phone | + [...] | left female | [place], | [place] [address] | | | | | breast (HCC) | [place] [address] | Phone: | | | | | Consult/L | Phone: | [phone] | | | | | Breast | [phone] | Fax: | | | | | Cancer/Noemi | Fax: | [phone] | | | | | (Breast | [phone] | | | | | | Conference - | | | | | | | Requested) | | | | | | | Procedures | | | | | | | [place] OFFICE | | | | | | [...] + + | 09/14/ | Hospital | [facility] | Kenya Tariq | | | 2016 | Encounter | MED CTR RADIATION | M, [address] | | | | | ONCOLOGY [address] [place], [place] | | | | | [place], | [address] | | | | | [place] [address] | | | | | | [phone] | | | +--------+ + + + [...]
--- OUTSIDE RECORDS SUMMARY | ~2019-09-25 | XMS | Encounter Summary ---
Demographics + + + | Address | [address] | | | [place] [address] | + + + | Home Phone | | + + + | Preferred Language | Unknown | + + + | Marital Status | | + + + | Caodaism Affiliation | 1013 | + + + | Race | Unknown | + + + | Ethnic Group | Unknown | + + + Author + + + | Author | [facility] | | | and [place] | + + + | Organization | [facility] | | [...] Team Providers + +------+ + | Care Manager Analysis Name | Role | Phone | + +------+ + | Yoav Bobby MD | PCP | | + +------+ + Encounter Details +--------+ + + + + | Date | Type | Department | Care Team | Description | +--------+ + + + + | 09/13/ | Abstract | [facility] | Arlene Ramirez | | | 2015 | | MED CTR MEDICAL | P, RN | | | | | ONCOLOGY CLINIC [address] | | | | | | [address] | | | | | | [place] [address] | | | | | | [phone] | | | +--------+ + + + [...]
--- OUTSIDE RECORDS SUMMARY | ~2019-09-25 | XMS | Encounter Summary ---
Demographics + + + | Address | [address] | | | [place] [address] | + + + | Home Phone | | + + + | Preferred Language | Unknown | + + + | Marital Status | | + + + | Islam Affiliation | 1013 | + + + | Race | Unknown | + + + | Ethnic Group | Unknown | + + + Author + + + | Author | [facility] | | | and [place] | + + + | Organization | [facility] | | | [...] Providers + +------+ + | Care Supervisor Finishing Department Name | Role | Phone | + [...] | | | breast (HCC) | [place] [address] | [address] Phone: | | | | | | Phone: | [phone] | | | | | Consult/[place] | [phone] | Fax: | | | | | srt/Noemi | Fax: | [phone] | | | | | (Breast | [phone] | | | | | | Conference) | | | | | | | (requested) | | | | | | | Procedures | | | | | | | [place] OFFICE | | | | | | [...] + + | 09/14/ | Hospital | [facility] | [facility], | Malignant neoplasm | | 2016 | Encounter | MED CTR MEDICAL | Elicia Guidry MD [address] | of upper-outer | | | | ONCOLOGY CLINIC [address] [place] | quadrant of left | | | | [address] [place] | [place] [address] | female breast (HCC) | | | | [place] [address] | [phone] | (Primary Dx) | | | | [phone] | | | +--------+ + + + [...] nt from the original. Hematology/Oncology Progress Note [facility] [place] Pt. Name/Age/: Thea Bey 71 y.o. 1945 [facility]. Record Number: [id number] Date of admission: 09/14/2016 Identifying Statement: Thea Bey is a 71 y.o. female from [address] [place] [place] [address] with Stage I, Triple Negative LEFT breast [...] Cancer referred by Dr. Lexi barker in [place], [place]. My chart: Pending Review of systems [...] J. Clin. Oncol.: Mich Llanes., Kirk, R.H., Satihs Soto., Jeremiah Vaca., Isidro, TCarolyn., Lillian, ESonuT., [...] this chart may have been created with [employer] voice recognition software. Occasi onal wrong-word or [...]
--- OUTSIDE RECORDS SUMMARY | ~2019-09-25 | XMS | Encounter Summary ---
Demographics + + + | Address | [address] | | | [place] [address] | + + + | Home Phone | | + + + | Preferred Language | Unknown | + + + | Marital Status | | + + + | Episcopalian Affiliation | 1013 | + + + [...] Team Providers + +------+ + | Care Newspaper Delivery Driver Name | Role | Phone | + +------+ + PCP | Unavailable | + +------+ + Encounter Details +--------+ + + + + | Date | Type | Department | Care Team | Description | +--------+ + + + + | 01/03/ | Hospital | [facility] | | | | 1994 | Encounter | MED CTR XRAY [address] | | | | | | [place] | | | | | | [place] [address] | | | | | | [phone] | | | +--------+ + + + [...]
--- OUTSIDE RECORDS SUMMARY | ~2019-09-25 | XMS | Encounter Summary ---
Demographics + + + | Address | [address] | | | [place] [address] | + + + | Home Phone | | + + + | Preferred Language | Unknown | + + + | Marital Status | | + + + | Druze Affiliation | 1013 | + + + [...] Team Providers + +------+ + | Care Financial Reporting Accountant Name | Role | Phone | + [...] | left female | [place], | [place] [address] | | | | | breast (HCC) | [place] [address] | Phone: | | | | | Consult/L | Phone: | [phone] | | | | | Breast | [phone] | Fax: | | | | | Cancer/Noemi | Fax: | [phone] | | | | | (Breast | [phone] | | | | | | Conference - | | | | | | | Requested) | | | | | | | Procedures | | | | | | | [place] OFFICE | | | | | | [...] + + | 09/14/ | Hospital | [facility] | Kenya Tariq | | | 2016 | Encounter | MED CTR RADIATION | M, [address] | | | | | ONCOLOGY [address] [place], [place] | | | | | [place], | [address] | | | | | [place] [address] | | | | | | [phone] | | | +--------+ + + + [...]
--- OUTSIDE RECORDS SUMMARY | ~2019-09-25 | XMS | Encounter Summary ---
Demographics + + + | Address | [address] | | | [place] [address] | + + + | Home Phone | | + + + | Preferred Language | Unknown | + + + | Marital Status | | + + + | Jewish Affiliation | 1013 | + + + | Race | Unknown | + + + | Ethnic Group | Unknown | + + + Author + + + | Author | [facility] | | | and [place] | + + + | Organization | [facility] | | | and [...] Team Providers + +------+ + | Care Auto Mechanic Name | Role | Phone | [...] | | | | | | [place] [address] | | | | | | [phone] | | | +--------+ + + + [...]
--- OUTSIDE RECORDS SUMMARY | ~2019-09-25 | XMS | Encounter Summary ---
Demographics + + + | Address | [address] | | | [place] [address] | + + + | Home Phone | | + + + | Preferred Language | Unknown | + + + | Marital Status | | + + + | Sikhism Affiliation | 1013 | + + + | Race | Unknown | + + + | Ethnic Group | Unknown | + + + Author + + + | Author | [facility] | | | and [place] | + + + | Organization | [facility] | | | [...] Team Providers + +------+ + | Care Mainspring Former Brace End Name | Role | Phone | + [...] | | ONCOLOGY CLINIC [address] [place], [place] | | | | | [address] | [address] | | | | | [place] [address] | | | | | | [phone] | | | +--------+ + + + [...]
--- OUTSIDE RECORDS SUMMARY | ~2019-09-25 | XMS | Encounter Summary ---
Demographics + + + | Address | [address] | | | [place] [address] | + + + | Home Phone [...] Team Providers + +------+ + | Care Steeple Jack Name | Role | Phone | + [...] | | | | | | [place] [address] | | | | | | [phone] | | | +--------+ + + + [...]
--- OUTSIDE RECORDS SUMMARY | ~2019-09-25 | XMS | Encounter Summary ---
Demographics + + + | Address | [address] | | | [place] [address] | + + + | Home Phone | | + + + | Preferred Language | Unknown | + + + | Marital Status | | + + + | Baptist Affiliation | 1013 | + + + | Race | Unknown | + + + | Ethnic Group | Unknown | + + + Author + + + | Author | [facility] | | | and [place] | + + + | Organization | [facility] | | | [...] Team Providers + +------+ + | Care Crepe Box Tender Name | Role | Phone | [...] [address] | | | | | | [place], | | | | | | [place] [address] | | | | | | [phone] | | | +--------+ + + + [...]
--- OUTSIDE RECORDS SUMMARY | ~2019-09-25 | XMS | Encounter Summary ---
Demographics + + + | Address | [address] | | | [place] [address] | + + + | Home Phone | | + + + | Preferred Language | Unknown | + + + | Marital Status | | + + + | Amish Affiliation | 1013 | + + + [...] + +------+ + | Care Director Of Community Services Name | Role | Phone | + [...] [address] | | | | | [address] [place], [place] | [place], [place] | | | | | [address] | [address] | | | | | [phone] | | | +--------+ + + + [...]
--- OUTSIDE RECORDS SUMMARY | ~2019-09-25 | XMS | Encounter Summary ---
Demographics + + + | Address | [address] | | | [place] [address] | + + + | Home Phone | | + + + | Preferred Language | Unknown | + + + | Marital Status | | + + + | Quaker Affiliation | 1013 | + + + [...] Team Providers + +------+ + | Care Gift Consultant Name | Role | Phone | + [...] Closed | | Medical | Diagnoses | [place], | | | | | Oncology / [...] | | | breast (HCC) | [place] [address] | [address] Phone: | | | | | | Phone: | [phone] | | | | | Consult/[place] | [phone] | Fax: | | | | | srt/Noemi | Fax: | [phone] | | | | | (Breast | [phone] | | | | | | Conference) | | | | | | | (requested) | | | | | | | Procedures | | | | | | | [place] OFFICE | | | | | | [...] + + | 09/14/ | Hospital | [facility] | [facility], | Malignant neoplasm | | 2016 | Encounter | MED CTR MEDICAL | Elicia Guidry MD [address] | of upper-outer | | | | ONCOLOGY CLINIC [address] [place] | quadrant of left | | | | [place] | [place] [address] | female breast (HCC) | | | | [place] [address] | [phone] | (Primary Dx) | | | | [phone] | | | +--------+ + + + [...] nt from the original. Hematology/Oncology Progress Note [facility] CT Pt. Name/Age/: Thea Bey 71 y.o. 1945 [facility]. Record Number: [id number] Date of admission: 09/14/2016 Identifying Statement: Thea Bey is a 71 y.o. female from [address] [place] [address] with Stage I, Triple Negative LEFT breast [...] Cancer referred by Dr. Lexi barker in [place], [place]. My chart: Pending Review of systems [...] Kirk, R.H., Satish Soto., Jeremiah Vaca., Isidro, TCarloyn., Lillian, ESonuT., Jenny, P .P.: Toxicity And [...] this chart may have been created with [employer] voice recognition software. Occasi onal wrong-word or [...]
--- OUTSIDE RECORDS SUMMARY | ~2019-09-25 | XMS | Encounter Summary ---
Demographics + + + | Address | [address] | | | [place] [address] | + + + | Home Phone | | + + + | Preferred Language | Unknown | + + + | Marital Status | | + + + | Rastafarian Affiliation | 1013 | + + + | Race | Unknown | + + + | Ethnic Group | Unknown | + + + Author + + + | Author | [facility] | | | and [place] | + + + | Organization | [facility] | | | and [...] Team Providers + +------+ + | Care Envelope Sealer Operator Name | Role | Phone | [...] [address] | | | | | [address] [place], [place] | [place], [place] | | | | | [address] | [address] | | | | | [phone] | | | +--------+ + + + [...]
--- OUTSIDE RECORDS SUMMARY | ~2019-09-25 | XMS | Encounter Summary ---
Demographics + + + | Address | [address] | | | [place] [address] | + + + | Home Phone | | + + + | Preferred Language | Unknown | + + + | Marital Status | | + + + | Temple Affiliation | 1013 | + + + | Race | Unknown | + + + | Ethnic Group | Unknown | + + + Author + + + | Author | [facility] | | | and [place] | + + + | Organization | [facility] | | | and [...] Providers + +------+ + | Care Canvas Cutter Hand Name | Role | Phone | + +------+ + | Yoav Bobby MD | PCP | | + +------+ + Encounter Details +--------+ + + + + | Date | Type | Department | Care Team | Description | +--------+ + + + + | 11/17/ | Documentati | [facility] | Erna Hernandez, | | | 2016 | on | MED CTR MEDICAL | RN | | | | | ONCOLOGY CLINIC [address] | | | | | | [address] | | | | | | [place] [address] | | | | | | [phone] | | | +--------+ + + + [...] resource to [place] in [place] of [place] , [place] at the [employer] where she qualifies for a free year of membership in [facility] rebecca Ibarra Cancer program. Eliz said [...] or down her arm. Eliz will see [facility] doctor tomorrow for her weekly check and I encouraged her to make a follow up appointment with Dr. Lucio and anticipate that she will want to see her in 3 months. Eliz was ER/IA/H ER2 negative and does not follow up [...]
--- OUTSIDE RECORDS SUMMARY | ~2019-09-25 | XMS | Encounter Summary ---
Demographics + + + | Address | [address] | | | [place] [address] | + + + | Home Phone | | + + + | Preferred Language | Unknown | + + + | Marital Status | | + + + | Shinto Affiliation | 1013 | + + + | Race | Unknown | + + + | Ethnic Group | Unknown | + + + Author + + + | Author | [facility] | | | and [place] | + + + | Organization | [facility] | | | [...] Team Providers + +------+ + | Care Punchboard Filling Machine Operator Name | Role | Phone [...] | | ONCOLOGY CLINIC [address] | [address] [place], [place] | | | | | [address] | [address] | | | | | [place] [address] | | | | | | [phone] | | | +--------+ + + + [...]
--- OUTSIDE RECORDS SUMMARY | ~2019-09-25 | XMS | Encounter Summary ---
Demographics + + + | Address | [address] | | | [place] [address] | + + + | Home Phone | | + + + | Preferred Language | Unknown | + + + | Marital Status | | + + + | Latter-Day Affiliation | 1013 | + + + | Race | Unknown | + + + | Ethnic Group | Unknown | + + + Author + + + | Author | [facility] | | | and [place] | + + + | Organization | [facility] | | | [...] Team Providers + +------+ + | Care Frame Carver Spindle Name | Role | Phone | + [...] | | | | quadrant of | [place] | [place], | | | | | left female | [address] | [place] [address] | | | | | breast (HCC) | [place], | Phone: | | | | | Procedures | [place] | [phone] | | | | | [place] OFFICE | [address] | Fax: | | | | | OUTPATIENT | Phone: | [phone] | | | | | VISIT 25 | [phone] | | | | | | MINUTES | Fax: | | | | | | | [phone] | | +--------+--------+ + + + + Encounter Details +--------+ + + + + | Date | Type | Department | Care Team | Description | +--------+ + + + + | 02/23/ | Hospital | [facility] | Kenya Tariq | Encounter for | | 2017 | Encounter | MED CTR RADIATION | MD Esvin [address] | screening mammogram | | | | ONCOLOGY [address] | [place], [place] | for high-risk | | | | [place], | [address] | patient (Primary Dx) | | | | [place] [address] | | | | | | [phone] | | | +--------+ + + + [...] 3:17 PM PDTSchedule screening mammog [facility] for June 2017 Increase activity by walking [...] Srinivasan MD - 02/23/2017 [facility] PATIENT: Thea Bey MR#: [id number] :1945 DOS:02/23/2017 ICD/Diagnosis: C50.912 - Malignant neoplasm [...] margin, no LVIS, PNI present, ER 0%, LA 0%, H er2 non-amplified, Ki-67 60%, 0/2 [...] Exam performed in the presence of a assembler surgical garment. On upright exam breasts appear sym metric [...] margin, no LVIS, PNI present, ER 0%, LA 0%, Her2 non-amplified, Ki-6 7 60%, 0/2 [...] M.D. Radiation Oncologist Department of Radiation Oncology [facility] Electronically signed by Kenya Srinivasan M.D CC: Noé Liao M.D. Oscar Bobby M.D. Bo Caicedo M.D. This note was transcribed using [employer] speech recognition software. As a result, there ma y be unintended for medical and/or spelling errors. Every attempt is made to correct dicta tion. If there are any questions or errors please contact our office. CSN: [id number] signed by Kenya Srinivasan MD at 03/12/2017 [...]
--- OUTSIDE RECORDS SUMMARY | ~2019-09-25 | XMS | Encounter Summary ---
Demographics + + + | Address | [address] | | | [place] [address] | + + + | Home Phone | | + + + | Preferred Language | Unknown | + + + | Marital Status | | + + + | Buddhism Affiliation | 1013 | + + + | Race | Unknown | + + + | Ethnic Group | Unknown | + + + Author + + + | Author | [facility] | | | and [place] | + + + | Organization | [facility] | | | [...] Team Providers + +------+ + | Care Clay Miller Name | Role | Phone | + [...] [place], [place] | | | | | [place], | [address] | | | | | [place] [address] | | | | | | [phone] | | | +--------+ + + + [...]
--- OUTSIDE RECORDS SUMMARY | ~2019-09-25 | XMS | Encounter Summary ---
Demographics + + + | Address | [address] | | | [place] [address] | + + + | Home Phone | | + + + | Preferred Language | Unknown | + + + | Marital Status | | + + + | Moravian Affiliation | 1013 | + + + [...] Team Providers + +------+ + | Care Health Records Technology Teacher Name | Role | Phone | [...] + | 09/27/ | Documentati | [facility] | Apollo Dhillon, | Psychosocial Support | | 2016 | on | MED CTR MEDICAL | ENVIRONMENTAL PROGRAMS SPECIALIST | | | | | ONCOLOGY CLINIC [address] | | | | | | [address] | | | | | | [place] [address] | | | | | | [phone] | | | +--------+ + + + [...] for jo st cancer. She lives in [place], [place]. Eliz is covered by [employer] [...] coping skills and st donal ramandeep. This Environmental Programs Specialist allowed for expression of feeling and provided supportive counseling and information regarding the emotional aspects of a cancer diagnosis and treatment. Encourage d Eliz to attend community support group and offered literature on patient s diagnosis. This Environmental Programs Specialist and Library Aide are available to provide emotional support an [...]
--- OUTSIDE RECORDS SUMMARY | ~2019-09-25 | XMS | Encounter Summary ---
Demographics + + + | Address | [address] | | | [place] [address] | + + + | Home Phone | | + + + | Preferred Language | Unknown | + + + | Marital Status | | + + + | Amish Affiliation | 1013 | + + + | Race | Unknown | + + + | Ethnic Group | Unknown | + + + Author + + + | Author | [facility] | | | and [place] | + + + | Organization | [facility] | | [...] Team Providers + +------+ + | Care Phlebotomist Supervisor/Instructor Name | Role | Phone | + +------+ + | Reilly Garcia MD | PCP | | + +------+ + Encounter Details +--------+ + + + + | Date | Type | Department | Care Team | Description | +--------+ + + + + | 05/21/ | Orders Only | [facility] | Provider, | | | 2019 | | SYSTEM GENERIC OP | MD [address] | | | | | [address] | [place] | | | | | [address] [place], [place] | [place] [address] | | | | | [address] | | | | | | [phone] | | | +--------+ + + + [...]
--- OUTSIDE RECORDS SUMMARY | ~2019-09-25 | XMS | Encounter Summary ---
Demographics + + + | Address | [address] | | | [place] [address] | + + + | Home Phone [...] Providers + +------+ + | Care Manager Installation Name | Role | Phone | + [...] | | | | | | [place] [address] | | | | | | [phone] | | | +--------+ + + + [...]
--- OUTSIDE RECORDS SUMMARY | ~2019-09-25 | XMS | Encounter Summary ---
Demographics + + + | Address | [address] | | | [place] [address] | + + + | Home Phone [...] Team Providers + +------+ + | Care Peeler Operator Name | Role | Phone | [...] | | | ONCOLOGY CLINIC [address] | [place], [place] | | | | | [address] | [address] | | | | | [place] [address] | | | | | | [phone] | | | +--------+ + + + [...]
--- OUTSIDE RECORDS SUMMARY | ~2019-09-25 | XMS | Encounter Summary ---
Demographics + + + | Address | [address] | | | [place] [address] | + + + | Home Phone [...] Team Providers + +------+ + | Care Wafer Fabrication Technician Name | Role | Phone | [...] | | | | | | [place] [address] | | | | | | [phone] | | | +--------+ + + + [...]
--- OUTSIDE RECORDS SUMMARY | ~2019-09-25 | XMS | Encounter Summary ---
Demographics + + + | Address | [address] | | | [place] [address] | + + + | Home Phone [...] Team Providers + +------+ + | Care Site Safety Manager Name | Role | Phone | [...] | | [address] | [place] [address] | | | | | [address] | [phone] | | | | | [phone] | | | +--------+ + + + [...] MV A Dominik: 0.78 m/s MV Dec Mccurtain: 1.85 m/s2 MV | | | DecT: [...] TR Vmax: | | | 2.26 m/s Straw Hat Plunger Operator: TRINA Authenticated by: Ankita Britton | | [...] cmLVIDd: 3.98 cmLVPWd: 0.83 cmLVOT Area: 3.62 [id number] Diam: 2.14 | | cm%FS: 32.84 %EF(Teich): [...] (A-L): 14.52 ml/m2LAAs | | A2C: 12.21 [id number] A-L A2C: 28.55 mlLALs A2C: 4.43 cmLAAs A4C: 10.23 [id number] | | A-L A4C: 21.30 mlLALs A4C: 4.17 cmRAAs: 11.64 [id number] A-L: 25.86 mlRAESV MOD: | | 25.17 mlRALs: 4.44 cmTAPSE: 1.80 cmAV maxP.07 mmHgAV meanP.38 mmHgAV | | Vmax: 1.12 m/Coreen Vmean: 0.70 m/Coreen VTI: 18.38 cmAVA Vmax: 2.58 cm2AVA (VTI): | | 2.95 ci4JMWP maxP.57 mmHgLVOT meanP.37 mmHgLVSI Dopp: 31.04 ml/m2LVSV | | Dopp: 54.32 mlLVOT Vmax: 0.80 m/sLVOT Vmean: 0.53 m/sLVOT VTI: 15.00 cmMV A Dominik: | | 0.78 m/sMV Dec Mccurtain: 1.85 m/s2MV DecT: 283.47 msMV E Dominik: 0.52 m/sMV E/A | | Ratio: 0.67MV PHT: 82.20 msMVA By PHT: 2.67 [id number] e': 0.06 m/sSeptal E/e': | | 8.11Lateral e': 0.06 m/sLateral E/e': 8.16RAP: 5 mmHgRVSP: 25.51 mmHgTR maxPG: | | 20.51 mmHgTR Vmax: 2.26 m/s Straw Hat Plunger Operator: DHAuthenticated by: Ankita Samayoa | | Date/Time: [...] A Dominik: 0.78 m/s | |MV Dec Mccurtain: 1.85 m/s2 | |MV DecT: 283.47 ms [...] |TR Vmax: 2.26 m/s | | | |Straw Hat Plunger Operator: | |Authenticated by: Ankita Britton | |Report [...]
--- OUTSIDE RECORDS SUMMARY | ~2019-09-25 | XMS | Clinical Summary ---
Demographics + + + | Address | [address] | | | [place] [address] | + + + | Home Phone [...] | Author | [facility] | | | and [place] | + + + | Organization | [facility] | | | and [...] Team Providers + +------+ + | Care Spice Cleaner Name | Role | Phone | [...] | Activ | | high-dose (FLUZONE | [id number] (PF) 180 | | | | | [...] Care Coordination | | 2019 | | | MD Esvin | | [...] | | + + + + + Procedures + +--------+ + + + | [...] section. | + +--------+ + + + from Last 3 Months Results IMAGING REPORT - EXTERNAL SCAN (08/30/2019 12:00 AM PST) + + + | Narrative | Performed At | + + + | Ordered by an | | | unspecified provider. | | + + + from Last 3 Months Insurance + +--------+ +--------+-------+---------+--------+ | Payer | Benefi | Subscriber | Effect | Phone | Address | Type | | | t Plan | ID | erin | | | | | | / | | Dates | | | | | | Group | | | | | | + +--------+ +--------+-------+---------+--------+ | [employer] | [employer] | [id number] | 10/24/19 | | | Medica | [...] Person | Self | [birth year] | | ST | | | al/Fam | | 1945 | [phone] | [place] | | | [place] | | | [address] (Home) | [address] | + +--------+ +--------+ + + Advance Directives + + + + + | Type | Date Recorded | Patient | Explanation | | | | Convertible Top Installer | | + + + + + | Power of | 09/10/2019 | | TUNG: SUHAS SPENCER | | | 9:37 AM | | | + + + + + | Advance | 09/27/2016 8:39 | | | | Directive | AM | | | + + + + +
--- OUTSIDE RECORDS SUMMARY | ~2019-09-25 | XMS | Encounter Summary ---
Demographics + + + | Address | [address] | | | [place] [address] | + + + | Home Phone [...] Team Providers + +------+ + | Care Property Administrator Name | Role | Phone | + [...] cancer of | MD [address] | [place], | | | | | upper-outer | [address] | [place] [address] | | | | | quadrant of | [place], | Phone: | | | | | left female | [place] [address] | [phone] | | | | | breast (HCC) | Phone: | Fax: | | | | | Procedures | [phone] | [phone] | | | | | [place] | Fax: | | | | | | Treatment | [phone] | | | | | | Plan [...] W | | | | | | [place], | | | | | | [place] [address] | | | | | | [phone] | | | +--------+ + + + [...]
--- OUTSIDE RECORDS SUMMARY | ~2019-09-25 | XMS | Encounter Summary ---
Demographics + + + | Address | [address] | | | [place] [address] | + + + | Home Phone [...] Providers + +------+ + | Care Medical Lab Specialist Name | Role | Phone | + +------+ + | Reilly Garcia MD | PCP | | + +------+ + Encounter Details +--------+ + + + + | Date | Type | Department | Care Team | Description | +--------+ + + + + | 05/21/ | Orders Only | [facility] | Provider, | | | 2019 | | SYSTEM GENERIC OP | MD [address] | | | | | [address] | [place] | | | | | [address] [place], [place] | [place] [address] | | | | | [address] | | | | | | [phone] | | | +--------+ + + + [...]
--- OUTSIDE RECORDS SUMMARY | ~2019-09-25 | XMS | Encounter Summary ---
Demographics + + + | Address | [address] | | | [place] [address] | + + + | Home Phone [...] Team Providers + +------+ + | Care Strategic Marketing Associate Name | Role | Phone | + [...] | | | | | | [place] [address] | | | | | | [phone] | | | +--------+ + + + [...]
--- OUTSIDE RECORDS SUMMARY | ~2019-09-25 | XMS | Clinical Summary ---
Demographics + + + | Address | [address] | | | [place] [address] | + + + | Home Phone | | + + + | Preferred Language | Unknown | + + + | Marital Status | | + + + | Yarsanism Affiliation | 1013 | + + + [...] Team Providers + +------+ + | Care Head Stock Transfer Clerk Name | Role | Phone | + [...] | Activ | | high-dose (FLUZONE | [id number] (PF) 180 | | | | | [...] | [employer] | [employer] | [id number] | 10/24/19 | | | Medica | [...] [place] | | | 6 (Home) | [address] | + +--------+ +--------+ + + Advance Directives + + + + + | Type | Date Recorded | Patient | Explanation | | | | Combat Control Manager | | + + + + + | Power of | 09/10/2019 | | TUNG: SUHAS SPENCER | | | 9:37 AM | | | + + + + + | Advance | 09/27/2016 8:39 | | | | Directive | AM | | | + + + + +
--- OUTSIDE RECORDS SUMMARY | ~2019-09-25 | XMS | Encounter Summary ---
Demographics + + + | Address | [address] | | | [place] [address] | + + + | Home Phone [...] Team Providers + +------+ + | Care Radio Script Writer Name | Role | Phone | + [...] cancer of | MD [address] | [place], | | | | | upper-outer | [address] | [place] [address] | | | | | quadrant of | [place], | Phone: | | | | | left female | [place] [address] | [phone] | | | | | breast (HCC) | Phone: | Fax: | | | | | Procedures | [phone] | [phone] | | | | | CT | Fax: | | | | | | Treatment | [phone] | | | | | | Plan [...] W | | | | | | [place], | | | | | | [place] [address] | | | | | | [phone] | | | +--------+ + + + [...]
--- OUTSIDE RECORDS SUMMARY | ~2019-09-25 | XMS | Encounter Summary ---
Demographics + + + | Address | [address] | | | [place] [address] | + + + | Home Phone | | + + + | Preferred Language | Unknown | + + + | Marital Status | | + + + | Oriental Orthodox Affiliation | 1013 | + + + | Race | Unknown | + + + | Ethnic Group | Unknown | + + + Author + + + | Author | [facility] | | | and [place] | + + + | Organization | [facility] | | [...] Team Providers + +------+ + | Care Electrical Maintenance Mechanic Name | Role | Phone | [...] | | | ONCOLOGY CLINIC [address] | [place], [place] | | | | | [address] | [address] | | | | | [place] [address] | | | | | | [phone] | | | +--------+ + + + [...]
--- OUTSIDE RECORDS SUMMARY | ~2019-09-25 | XMS | Encounter Summary ---
Demographics + + + | Address | [address] | | | [place] [address] | + + + | Home Phone [...] Team Providers + +------+ + | Care Assisted Living Home Director Name | Role | Phone | + [...] | | | | quadrant of | [place] | [place], | | | | | left female | [address] | [place] [address] | | | | | breast (HCC) | [place], | Phone: | | | | | Procedures | [place] | [phone] | | | | | [place] OFFICE | [address] | Fax: | | | | | OUTPATIENT | Phone: | [phone] | | | | | VISIT 25 | [phone] | | | | | | MINUTES | Fax: | | | | | | | [phone] | | +--------+--------+ + + + + Encounter Details +--------+ + + + + | Date | Type | Department | Care Team | Description | +--------+ + + + + | 02/10/ | Hospital | [facility] | Kenya Tariq | Malignant neoplasm | | 2018 | Encounter | MED CTR RADIATION | MD Esvin [address] | of upper-outer | | | | ONCOLOGY CLINIC [address] | [place], [place] | quadrant of left | | | | [address] [place] | [address] | breast in female, | | | | [place] [address] | | estrogen receptor | | | | [phone] | | negative (HCC) | | | [...] Dr. Yoav Bobby and Dr. Caicedo in [place]. She comes to clinic today with a [...] recommended at this time. Orally placed at [place]. Bila teral screening mammogram due in July. Thank you for allowing me to participate in the care of Thea Bey. If you should enriquez ve any questions regarding this evaluation, please do not hesitate to contact me. Kenya Mitchell M.D. Radiation Oncologist Department of Radiation Oncology [facility] Office: [phone] CC: Patient Care Team: Yoav Bobby as [...]
--- OUTSIDE RECORDS SUMMARY | ~2019-09-25 | XMS | Encounter Summary ---
Demographics + + + | Address | [address] | | | [place] [address] | + + + | Home Phone [...] Team Providers + +------+ + | Care Psych Assistant Name | Role | Phone | [...] | MED CTR EXTERNAL | MD [address] | | | | | IMAGING | [place] | | | | | [phone] | [place] [address] | | +--------+ + + + + [...]
--- OUTSIDE RECORDS SUMMARY | 2019-09-25 11:54 | XMS ---
PreManage Notification: CALVIN ALTAMIRANO Security Breeder Service Technician Events No recent Security Events currently on file CRITERIA MET - [facility] - 2 Visits in 30 Days CARE PROVIDERS Yoav Bobby MD Primary Care Current PHONE: Unknown Yazmin BOBBY Primary Care Current PHONE: Unknown Angella has no Care Guidelines for this patient. Priscila VISIT COUNT ([address] [facility] TOTAL 2 NOTE: Visits indicate total known visits. ED/UCC VISIT TRACKING (12 MO.) 09/25/2019 11:51 [facility] [place] TYPE: Emergency COMPLAINT: - COUGH, WEAKNESS 09/04/2019 10:28 [facility] [place] TYPE: Emergency COMPLAINT: - OVER MEDICATED DIAGNOSES: - Allergy status to analgesic agent status - Essential (primary) hypertension - Hypothyroidism, unspecified - Gastro-esophageal reflux disease without esophagitis - Allergy status to oth drug/meds/biol subst status - Poisn by oth antacids and sjeh-tvezx-lng drugs, acc, init - Other superintendent container terminal (current) drug therapy - Poisoning by electrolytic/caloric/wtr-bal agnt, acc, init - Allergy status to sulfonamides status - Allergy status to penicillin - Poisoning by thyroid hormones and sub, accidental, init - Poisn by oth antacids and ioql-qiiim-atg drugs, acc, init INPATIENT VISIT TRACKING (12 MO.) No inpatient visits to display in this time frame [email or web address]
[2019-09-25] MEDS ORDERED: AZITHROMYCIN500 MG PO (12:15)
[2019-09-25] MEDS ORDERED: VENTOLIN HFA18 GM INH (12:16)
[2019-09-25] MEDS ORDERED: PREDNISONE20 MG PO (13:50)
== END 2019-09-25 14:09 | disposition home or self-care (01) ==
LOC: ED 11:51
DX: J40 Bronchitis, not specified as acute or chronic (principal); E03.9 Hypothyroidism, unspecified; I10 Essential (primary) hypertension; K21.9 Gastro-esophageal reflux disease without esophagitis; Z88.6 Allergy status to analgesic agent; Z88.0 Allergy status to penicillin; Z88.8 Allergy status to other drugs, medicaments and biological substances; Z88.2 Allergy status to sulfonamides; Z79.899 Other long term (current) drug therapy
CPT/HCPCS: 71046; 94640; 99283-25; J1100

== ENCOUNTER 2019-12-03 09:52 | Emergency (ER) | payer MEDICARE ==
[~2019-12-03] VITALS: Ht 154.9 cm; Wt 88.5 kg
[~2019-12-03 09:52] MED LIST changes: +AZITHROMYCIN500 MG PO; +PREDNISONE20 MG PO; +VENTOLIN HFA18 GM INH
--- NOTE | 2019-12-04 12:21 | NUR ---
[facility] arranged yesterday from ED by another egg caser. Received call today from [facility] needing additional addendum face to face filled out. This was done and signed by Dr. Loya who saw patient yesterday. Form was scanned to [facility], spoke with Joann in that department [phone], she received and is processing request. They will contact patient.
--- NOTE | 2019-12-05 10:25 | NUR ---
RECIEVED A MESSAGE FROM PTS LIVEIN CAREGIVER, CALLING TO STATE THAT PATIENT FELL AGAIN LAST NIGHT AND HAD EMS COME TO HOME AND HELP HER BACK INTO BED. SHE DID NOT THINK SHE NEEDED TO GO TO ER AGAIN SHE THINKS NOTHING IS BROKEN. DENISE CALLED STATING THAT SHE CAN'T PHYSICALLY CONT TAKING CARE OF PT AND WHAT CAN I DO TO HELP HER. SHE ALSO STATED THAT [facility] CALLED AND SPOKE WITH ELISABETH YESTERDAY AND ELISABETH TOLD THEM SHE DID NOT NEED HOME HEALTH "I COULD [facility], I'M SO HEALTHY." AND TOLD THEM SHE DIDN'T NEED HOME HEALTH. AND DENISE WANTED ME TO SEE WHAT I COULD DO TO HELP. I TALKED WITH DENISE ABOUT [facility] GAVE HER [employer] HOUSE, LEIGH CARE ETC. SHE SAID SHE WOULD BE CALLING THE PT SON DENISHA AND TELL HIM HE WOULD NEED TO PAY OUT OF POCKET FOR HER TO GO TO AN [facility] OR [facility], SHE DIDN'T HAVE A CURRENT 3 DAY INPT STAY IN THE HOSPITAL FOR A SNF. I EXPLAINED THIS TO DENISE. TOLD HER MEDICARE WOULDN'T PAY FOR ASSISTED LIVING OR [facility] HOMES. SHE STATED SHE APPRECIATED ME LETTING HER KNOW. I ALSO CALLED [facility] AND TALKED WITH TRAVIS AND SHE SAID WHEN THEY TALKED WITH THE PATIENT SHE STATED SHE DID NOT NEED HOME HEALTH SHE COULD [facility] THE [facility]. I ASKED HER TO CALL AND TALK TO DENISE THE PT DOES NEED HOME HEALTH NOW AND WHEN SHE GETS MOVED TO AN [place]. SHE SAID THEY WOULD HAVE TO GET AN EXTENSION FROM DR GARCIA. CALLED AND INFORMED DENISE WHAT I HAD FOUND OUT. SHE STATED THAT [facility] HAD TALKED WITH [facility] AND THEY WERE WAITING FOR RECORDS FROM DR GARCIA OFFICE. I CALLED AND TALKED WITH NELLY FROM [facility] AND SHE STATED THEY WERE WAITING FOR A RECORDS RELEASE FROM [facility] AND THEN THEY ARE WAITING FOR ORDERS FROM DR GARCIA. I ASKED IF THE NOTES FROM HER TUESDAY VISIT WOULD HELP AND SHE STATED YES. FAXING ER NOTES AND SUMMARY TO [facility].
--- NOTE | 2019-12-05 12:00 | NUR ---
[facility]CE[facility]
== END 2019-12-03 16:08 | disposition home or self-care (01) ==
LOC: ED 09:52
DX: S70.01XA Contusion of right hip, initial encounter (principal); W00.0XXA Fall on same level due to ice and snow, initial encounter; E03.9 Hypothyroidism, unspecified; I10 Essential (primary) hypertension; K21.9 Gastro-esophageal reflux disease without esophagitis; Z88.6 Allergy status to analgesic agent; Z88.0 Allergy status to penicillin; Z88.2 Allergy status to sulfonamides; Z88.8 Allergy status to other drugs, medicaments and biological substances; Z79.899 Other long term (current) drug therapy
CPT/HCPCS: 72192; 73502; 99284-25

== ENCOUNTER 2020-10-30 08:15 | Emergency (ER) | payer MEDICARE, OTHER ==
[~2020-10-30] VITALS: Ht 154.9 cm; Wt 88.5 kg
[2020-10-30] MEDS ORDERED: METOPROLOL SUCC50 MG PO (08:23)
[2020-10-30] MEDS ORDERED: TAMSULOSIN HCL0.4 MG PO (08:24)
[2020-10-30] MEDS ORDERED: POTASSIUM CHLO10 ME1 PO (09:38)
[2020-10-30] MEDS ORDERED: OMEPRAZOLE20 MG PO (09:39)
--- NOTE | 2020-10-30 17:35 | EKG ---
[facility] [address] [facility] [place] [address] Signed Normal sinus rhythm Left axis deviation Minimal voltage criteria for LVH, may be normal variant Abnormal ECG When compared with ECG of 30-JUL-2018 13:38, No significant change was found Confirmed by BALDEV EASON MD ([id number]) on 10/30/2020 5:35:23 PM Electronically Signed By: BALDEV EASON MD 10/30/20 1735 PATIENT NAME: CALVIN ALTAMIRANO Electrocardiogram DATE OF : 43 PHYSICIAN: BALDEV EASON MD REPORT #: [id number] REPORT IS CONFIDENTIAL AND NOT TO BE RELEASED WITHOUT AUTHORIZATION
== END 2020-10-30 13:16 | disposition home or self-care (01) ==
LOC: ED 08:15
DX: S32.019A Unspecified fracture of first lumbar vertebra, initial encounter for closed fracture (principal); S32.029A Unspecified fracture of second lumbar vertebra, initial encounter for closed fracture; M62.82 Rhabdomyolysis; W18.2XXA Fall in (into) shower or empty bathtub, initial encounter; K21.9 Gastro-esophageal reflux disease without esophagitis; I10 Essential (primary) hypertension; E03.9 Hypothyroidism, unspecified; Z88.6 Allergy status to analgesic agent; Z88.0 Allergy status to penicillin; Z88.8 Allergy status to other drugs, medicaments and biological substances; Z88.2 Allergy status to sulfonamides; Z79.899 Other long term (current) drug therapy
CPT/HCPCS: 51798; 70450; 71046; 72100; 80053; 81001; 82550; 84484; 85025; 93005; 93010; 99284-25; J7030

== ENCOUNTER 2021-01-17 12:06 | Emergency (ER) | payer MEDICARE, OTHER ==
[~2021-01-17] VITALS: Ht 154.9 cm; Wt 86.2 kg
[~2021-01-17 12:06] MED LIST changes: +METOPROLOL SUCC50 MG PO; +POTASSIUM CHLO10 ME1 PO; +TAMSULOSIN HCL0.4 MG PO
[2021-01-17] MEDS ORDERED: HYDROCODON-ACE1 EA10 PO (15:40)
[2021-01-17] MEDS ORDERED: ONDANSETRON ODT8 MG PO (15:40)
--- NOTE | 2021-01-19 19:12 | EKG ---
[facility] [address] [facility] [place] [address] Signed Normal sinus rhythm Left axis deviation Minimal voltage criteria for LVH, may be normal variant Septal infarct , age undetermined Abnormal ECG When compared with ECG of 30-OCT-2020 08:59, Septal infarct is now present Confirmed by BALDEV EASON MD ([id number]) on 01/19/2021 7:12:07 PM Electronically Signed By: BALDEV EASON MD 01/19/211911 PATIENT NAME: CALVIN ALTAMIRANO Electrocardiogram DATE OF : 43 PHYSICIAN: BALDEV EASON MD REPORT #: [id number] REPORT IS CONFIDENTIAL AND NOT TO BE RELEASED WITHOUT AUTHORIZATION
== END 2021-01-17 16:30 | disposition home or self-care (01) ==
LOC: ED 12:06
DX: R53.1 Weakness (principal); M79.10 Myalgia, unspecified site; E03.9 Hypothyroidism, unspecified; K21.9 Gastro-esophageal reflux disease without esophagitis; I10 Essential (primary) hypertension; Z88.6 Allergy status to analgesic agent; Z88.0 Allergy status to penicillin; Z88.8 Allergy status to other drugs, medicaments and biological substances; Z88.2 Allergy status to sulfonamides; Z79.899 Other long term (current) drug therapy
CPT/HCPCS: 71045; 80053; 81001; 83735; 84484; 85025; 93005; 93010; 99285-25; J7040

== ENCOUNTER 2021-11-19 15:12 | Emergency (ER) | payer MEDICARE ==
[~2021-11-19] VITALS: Ht 154.9 cm; Wt 81.7 kg
[~2021-11-19 15:12] MED LIST changes: +HYDROCODON-ACE1 EA10 PO; +ONDANSETRON ODT8 MG PO
== END 2021-11-19 19:55 | disposition home or self-care (01) ==
LOC: ED 15:12
DX: R32 Unspecified urinary incontinence (principal); R53.1 Weakness; I10 Essential (primary) hypertension; K21.9 Gastro-esophageal reflux disease without esophagitis; E03.9 Hypothyroidism, unspecified; Z88.0 Allergy status to penicillin; Z88.2 Allergy status to sulfonamides; Z88.6 Allergy status to analgesic agent; Z88.8 Allergy status to other drugs, medicaments and biological substances; Z79.899 Other long term (current) drug therapy; Z79.890 Hormone replacement therapy
CPT/HCPCS: 80048; 81001; 85025; 99284

== ENCOUNTER 2022-06-06 11:06 | Emergency (ER) | payer MEDICARE ==
[~2022-06-06] VITALS: Ht 154.9 cm; Wt 81.7 kg
== END 2022-06-06 14:56 | disposition home or self-care (01) ==
LOC: ED 11:06
DX: M25.551 Pain in right hip (principal); I10 Essential (primary) hypertension; F03.90 Unspecified dementia, unspecified severity, without behavioral disturbance, psychotic disturbance, mood disturbance, and anxiety; E03.9 Hypothyroidism, unspecified; K21.9 Gastro-esophageal reflux disease without esophagitis; Z88.6 Allergy status to analgesic agent; Z88.0 Allergy status to penicillin; Z88.2 Allergy status to sulfonamides; Z88.8 Allergy status to other drugs, medicaments and biological substances; Z79.899 Other long term (current) drug therapy
CPT/HCPCS: 73502; 80053; 83735; 84484; 85025; 99284-25

== ENCOUNTER 2022-07-02 15:08 | Emergency (ER) | payer MEDICARE ==
[~2022-07-02] VITALS: Ht 154.9 cm; Wt 89.8 kg
--- OUTSIDE RECORDS SUMMARY | 2022-07-02 15:14 | XMS ---
PreManage Notification: CALVIN ALTAMIRANO Security Multiple Punch Press Operator Events No recent Security Events currently on file CRITERIA MET - [facility] - 2 Visits in 30 Days CARE PROVIDERS CHANELLE GARCIA Internal Medicine 12/04/2019-Current PHONE: Unknown Angella has no Care Guidelines for this patient. Care History Medical/Surgical 12/04/2019 [facility] - Patient is currently established with [facility]. If patient is seen in the ED during business hours. Please contact CHWs at [facility]. - Care Recommendation: If this patient has had 5 or more Emergency Department visits in the last 12 months.\T\nbsp; Patient will require education on the scope and purpose of the ED as an acute care provider not a Primary Care Provider and should not be utilized for chronic conditions.\T\nbsp; These are guidelines and the provider should exercise clinical judgment when providing care. E.D. VISIT COUNT (12 MO.) 3 [facility] TOTAL 3 NOTE: Visits indicate total known visits. ED/UCC VISIT TRACKING (12 MO.) 07/02/2022 15:08 [facility] [place] TYPE: Emergency COMPLAINT: - WEAKNESS 06/06/2022 11:07 [facility] [place] TYPE: Emergency COMPLAINT: - FALL DIAGNOSES: - Allergy status to sulfonamides - Pain in right hip - Hypothyroidism, unspecified - Unspecified dementia without behavioral disturbance - Essential (primary) hypertension - Pain in unspecified hip - Allergy status to analgesic agent - Allergy status to other drugs, medicaments and biological substances - Allergy status to penicillin - Gastro-esophageal reflux disease without esophagitis - Other halfway (current) drug therapy 11/19/2021 15:13 [facility] [place] TYPE: Emergency COMPLAINT: - SOB, UNSTABLE DIAGNOSES: - Essential (primary) hypertension - Allergy status to sulfonamides - Hypothyroidism, unspecified - Unspecified urinary incontinence - Gastro-esophageal reflux disease without esophagitis - Weakness - Other regional intermodal truck driver (current) drug therapy - Unspecified dementia without behavioral disturbance - Allergy status to other drugs, medicaments and biological substances - Allergy status to penicillin - Hormone replacement therapy - Allergy status to analgesic agent INPATIENT VISIT TRACKING (12 MO.) No inpatient visits to display in this time frame [email or web address]
--- NOTE | 2022-07-03 15:55 | EKG ---
[facility] [address] [place] [address] Signed Normal sinus rhythm Left anterior fascicular block Moderate voltage criteria for LVH, may be normal variant ( R in aVL , Taran product ) Abnormal ECG When compared with ECG of 17-JAN-2021 12:32, Criteria for Septal infarct are no longer present Confirmed by LEVI BYRD MD ([id number]) on 07/03/2022 3:55:10 PM Electronically Signed By: LEVI BYRD MD 07/03/22 1555 PATIENT NAME: CALVIN ALTAMIRANO Electrocardiogram DATE OF : 43 PHYSICIAN: LEVI BYRD MD REPORT #: [id number] REPORT IS CONFIDENTIAL AND NOT TO BE RELEASED WITHOUT AUTHORIZATION
== END 2022-07-02 19:14 | disposition home or self-care (01) ==
LOC: ED 15:08
DX: E86.0 Dehydration (principal); R53.1 Weakness; R63.0 Anorexia; Z20.822 Contact with and (suspected) exposure to COVID-19; E03.9 Hypothyroidism, unspecified; K21.9 Gastro-esophageal reflux disease without esophagitis; I10 Essential (primary) hypertension; Z88.6 Allergy status to analgesic agent; Z88.8 Allergy status to other drugs, medicaments and biological substances; Z88.2 Allergy status to sulfonamides; Z88.0 Allergy status to penicillin; Z79.899 Other long term (current) drug therapy
CPT/HCPCS: 36415; 70450; 71260; 74177; 80053; 81001; 83735; 84484; 85025; 87502; 93005; 93010; 99285-25; C9803; J7030; Q9967; U0003

== ENCOUNTER 2024-06-01 15:28 | Emergency (ER) | payer OTHER, MEDICARE ==
[~2024-06-01] VITALS: Ht 154.9 cm; Wt 81.5 kg
[~2024-06-01 15:28] MED LIST changes: +DIFLUCAN100 MG PO; +JOCK ITCH RELIE14 GM TOP
[2024-06-01] MEDS ORDERED: HYDROCODONE/ACETA 5/325 TAB PO ONE (16:00)
[2024-06-01] MEDS ORDERED: HYDROCODON-ACE1 EA10 PO (17:05)
[2024-06-01 17:20] VITALS: BP 151/75
== END 2024-06-01 17:20 | disposition home or self-care (01) ==
LOC: ED 15:28
DX: S82.842A Displaced bimalleolar fracture of left lower leg, initial encounter for closed fracture (principal); X50.1XXA Overexertion from prolonged static or awkward postures, initial encounter; I10 Essential (primary) hypertension; E03.9 Hypothyroidism, unspecified; K21.9 Gastro-esophageal reflux disease without esophagitis; F03.90 Unspecified dementia, unspecified severity, without behavioral disturbance, psychotic disturbance, mood disturbance, and anxiety; Z88.6 Allergy status to analgesic agent; Z88.0 Allergy status to penicillin; Z88.1 Allergy status to other antibiotic agents; Z88.2 Allergy status to sulfonamides; Z79.890 Hormone replacement therapy; Z79.899 Other long term (current) drug therapy
CPT/HCPCS: 73610; 99283

== ENCOUNTER 2024-06-03 16:54 | Inpatient (IN) | payer MEDICARE, OTHER ==
[~2024-06-03] VITALS: Ht 154.9 cm; Wt 81.8 kg
[2024-06-03] MEDS ORDERED: FOSAMAX70 MG PO (17:04)
[2024-06-03] MEDS ORDERED: CYMBALTA20 MG PO (17:05)
[2024-06-03] MEDS ORDERED: LIDOCAINE 2% VISCOUS 6 ML SYR TOP ONE (21:30)
[2024-06-03 21:32] LABS: HEMOGLOBIN 11.2 g/dL (12.0-18.0)
[2024-06-03 21:35] LABS: BASOPHILS 0.5 % (0-2); EOSINOPHILS 3.1 % (0-6); HEMATOCRIT 34.7 % (35.0-50.0); MCH 29.8 (27-36); MCHC 32.4 g/dl (30-36); MCV 92.1 fl (81-99); NEUTROPHILS 64.4 % (39-80); PLATELET COUNT 280 K/uL (140-440); RBC 3.76 M/ul (4.3-5.7); RDW 14.6 (10.5-15.0)
[2024-06-03 21:39] LABS: INR 0.98 (0.80-1.30); PROTIME 12.3 Sec (11.2-14.2)
[2024-06-03 21:44] LABS: ALBUMIN 2.7 g/dL (3.4-5.0); ALBUMIN/GLOBULIN RATIO 0.73 (1.1-2.4); ANION GAP 11.1 (7-21); BILIRUBIN, TOTAL 0.3 ng/dL (0.2-1.0); BUN/CREATININE RATIO 19.54 (6.0-28.6); CALCIUM 8.5 mg/dL (8.5-10.1); CREATININE, SERUM 0.87 mg/dL (0.55-1.02); MAGNESIUM 1.8 mg/dL (1.8-2.4); POTASSIUM 4.1 mmol/L (3.5-5.1); PROTEIN, TOTAL 6.4 g/dL (6.4-8.2)
[2024-06-03 21:53] LABS: BILIRUBIN, URINE NEGATIVE (negative); BLOOD/HGB, URINE TRACE-L (Negative); KETONE, URINE NEGATIVE (Negative); LEUK ESTERASE, URINE MODERATE (negative); NITRITE, URINE NEGATIVE (negative)
[2024-06-03 22:00] LABS: CRYSTALS, URINE NONE SEEN (0-1+); EPITHELIAL CELLS, URINE SQUAMOUS 1+ /lpf (0-1+); WHITE BLOOD CELLS, URINE 41-50 /HPF (0-5)
[2024-06-03 22:01] LABS: BACTERIA, URINE 2+ /hpf (negative); CASTS, URINE NONE SEEN \\lpf; COLLECTION TYPE, URINE CLEAN CATCH; REFLEX CULTURE, URINE Yes (No)
[2024-06-03] MEDS ORDERED: ondansetron HCL 4 MG/2 ML VIAL IV PRN (22:15)
[2024-06-03] MEDS ORDERED: CEFTRIAXONE/SODIUM CHLORIDE 2 GM/100 ML PIGGYBACK IV ONE (22:15)
[2024-06-03] MEDS ORDERED: SODIUM CHLORIDE 0.9% 1,000 ML IV SCH (22:15)
[2024-06-03 22:39] VITALS: BP 147/81
[2024-06-03] MEDS ORDERED: MORPHINE SULFATE 4 MG/ML VIAL IV PRN (22:45)
[2024-06-03] MEDS ORDERED: MAGNESIUM250 M1 PO (22:48)
--- NOTE | 2024-06-03 22:48 | EKG ---
[facility] [address] [place] [address] Signed Normal sinus rhythm Left anterior fascicular block Moderate voltage criteria for LVH, may be normal variant ( R in aVL , Taran product ) Abnormal ECG When compared with ECG of 02-JUL-2022 15:22, No significant change was found Confirmed by Ja Adams MD () on 06/03/2024 10:48:12 PM Electronically Signed By: JA ADAMS MD 06/03/24 2248 PATIENT NAME: CALVIN ALTAMIRANO Electrocardiogram DATE OF : 43 PHYSICIAN: JA ADAMS MD REPORT #: [id number] REPORT IS CONFIDENTIAL AND NOT TO BE RELEASED WITHOUT AUTHORIZATION
--- NOTE | 2024-06-03 22:50 | NUR ---
2230 - PT ARRIVED TO ROOM 111 VIA ATRETCHER FROM ER. TOLERATED TRANSFERRING WELL. ON ROOM AIR, SMILEY GREEN, MITCH KC. RED PERIAREA. ALERT TO SELF.
--- NOTE | 2024-06-03 23:41 | NUR ---
RESTING, EYES CLOSED, NO S/SX DISTRESS, BED ALRMS ON AT NURSING JUDGEMENT. IVF INFUSING. L ORTHO BOOT IN PLACE.
[2024-06-04] VITALS (10 sets, daily range): BP systolic 138–151; BP diastolic 59–67
--- NOTE | 2024-06-04 02:32 | NUR ---
AWAKE, NO C/O PAIN, ON ROOM AIR, IVF INFUSING, F/C WITH SMALL AMOUNT OF MEDIUM YELLOW URINE. PERICARE/F/C CARE DONE. REPOSITIONED . L LEG BRACE IN PLACE. ALL CARES EXPLAINED
--- NOTE | 2024-06-04 05:54 | NUR ---
AWAKENS EASILY, NO C/O PAIN, ON ROOM AIR, ALERT TO SELF AND PLACE BUT NOT TOWN, CONTINUES TO HAVE SHORT MEMORY AND ANSWERS "I DONT REMEMBER". PLEMERRY, ORAL CARE DONE, NPO FOR POSSIBLE AM SURGERY. F/C PATENT. l ORTHO BRACE IN PLACE. IVF INFUSING W/O PROBLEMS.
--- NOTE | 2024-06-04 07:15 | NUR ---
PT REPORT RECEIVED FROM MARGIE PATRICIO. PT IS AWAKE, RESTING SUPINE IN BED. CALL LIGHT IN REACH, SIDE RAILS UP. DENIES PAIN OR NEEDS AT THIS TIME.
--- NOTE | 2024-06-04 09:07 | NUR ---
UR CLINICAL REVIEW: 2 MN FOR [facility] INPT CRITERIA MEDICARE INPT 06/03/24 @ 1609 ORDER MATCHES REG NO AUTH NEEDED PER MEDICARE GUIDELINES AWAITING SURGERY. RETURN TO FACILITY WHEN STABLE
--- NOTE | 2024-06-04 09:22 | NUR ---
LIVE TAPIA CALLED FROM SURGERY TO LET US KNOW THAT PATIENT WOULD NOT BE GOING TO SURGERY UNTIL Tuesday, CAN BE NPO AFTER MN FOR Tuesday. PATIENT MAY HAVE REGULAR DIET FOR NOW. DR. ADAMS NOTIFIED. PRIMARY NURSE ENRIQUE NOTIFIED.
[2024-06-04] MEDS ORDERED: VITAMIN D325 MCG PO (10:26)
[2024-06-04] MEDS ORDERED: TURMERIC500 M2 PO (10:26)
[2024-06-04] MEDS ORDERED: TYLENOL EXTRA500 MG PO (10:28)
[2024-06-04] MEDS ORDERED: BETAMETHASONE D15 G1 TOP (10:28)
[2024-06-04] MEDS ORDERED: MIRALAX17 GM PO (10:29)
--- NOTE | 2024-06-04 10:30 | NUR ---
MED REC COMPLETE
[2024-06-04] MEDS ORDERED: DULOXETINE HCL 20 MG CAP PO SCH (11:04)
[2024-06-04] MEDS ORDERED: PANTOPRAZOLE SODIUM 40 MG TABEC PO SCH (11:05)
[2024-06-04] MEDS ORDERED: PHARMACY RENAL DOSE ADJUSTMENT 1 DOSE MISC PO SCH (12:00)
--- NOTE | 2024-06-04 12:05 | NUR ---
SPOKE TO PATIENT ABOUT THE DISCHARGE PLAN, PATIENT IS SLIGHTLY COFUSED. PATIENT HAS A CAREGIVER AT BEDSIDE NAMED CHANDANA. PATIENT STATES THAT AMELIA IS HER POA AND SHE WILL BE IN LATER TODAY. PATIENT WILL BE GOING TO THE OR PER DR. ROWLEY 06/06/24. PATIENT L[facility] AT [facility] AND WANTS TO RETURN IF POSSIBLE POST-SURGERY. PATIENT HAS FRIENDS AND FAMILY WHO CAN HELP NEEDED. PATIENT'S DEMGRAPHICS ARE CORRECT.PATIENT USES A WALKER NEEDED. PATIENT CAN AFFORD FOOD AND HOUSING. PATIENT NEEDS HELP WITH ADLS. PATIENT HAS A HITORY OF DEMEMTIA AND MAY NOT BE ABLE TO GO TO SNF IF THE PATIENT CANNOT FOLLOW DIRECTIONS.
--- NOTE | 2024-06-04 14:35 | NUR ---
VISITED DURING SPIRITUAL CARE ROUNDS. PT APPEARED TO BE SLEEPING. DID NOT DISTURB. PROVIDED PRAYER.
--- NOTE | 2024-06-04 14:54 | NUR ---
PATIENT WILL BE GOING TO [place] AT10:30 AM TOMORROW. PATIENT IS VERY SLEEPY FROM PAIN MEDICATION, MADE MD AND SALES APPRENTICE AWARE. TRIED TO GO OVER ITEMS PATIEN MAY NEED FOR SNF AND PATIENT TO SLEEPY TO LISTEN.
--- NOTE | 2024-06-04 17:00 | NUR ---
3-person hands-on assist pt to the chair for dinner, NWB on left leg, fracture boot intact, cms intact. Pt tolerated transfer well. BLE elevated in chair. Ice packs to affected extremity. in with pt for visit, dinner tray on bedside table and set up for patient. Pt denies worsening pain at this time. IVF running per emar. Call light in reach. Linen change performed at this time, waffle overlay applied.
--- NOTE | 2024-06-04 19:15 | NUR ---
Pt in chair, brace L leg, NWB. belle lifted back to bed, tolerated well. repositioned. ice to area. hob elevated, f/c patent
--- NOTE | 2024-06-04 20:37 | NUR ---
pt pulled iv LW off, 2x2 in place, unable to restart after 2 tries, and 2 RN tries. meter and regulator shop supervisor motified. All cares explained, cooperative. repositioned in bed, was incontinent of smear of bm. skin care, barrier cream to buttocks and periarea and lower abd red area. cooperative, f/c care done. medicated with morphine 4mg prior to pt dc'd iv. L brace in place. waiting for another RN to come and try to restart iv.
[2024-06-04] MEDS ORDERED: TAMSULOSIN HCL 0.4 MG CAP PO SCH (21:00)
[2024-06-04] MEDS ORDERED: CEFTRIAXONE/SODIUM CHLORIDE 2 GM/100 ML PIGGYBACK IV SCH (21:00)
--- NOTE | 2024-06-04 21:46 | NUR ---
20G, 1" USIV PLACED IN LFA @ 0.5CM DEPTH. PT TOLERATED WELL. PRIMARY RN IN ROOM AT THIS TIME.
--- NOTE | 2024-06-04 22:23 | NUR ---
RESTING, EYES CLOSED, NO S/SX DISTRESS, IVF INFUSING LA. ON ROOM AIR, L ORTHO BOOT IN PLACE
--- NOTE | 2024-06-04 23:50 | NUR ---
PT RESTING, EYES CLOSED, NO S/SX DISTRESS, IVF INFUSING, L LEG ORTHO BOOT IN PLACE. ALRMS ON
[2024-06-05] VITALS (7 sets, daily range): BP systolic 116–149; BP diastolic 54–75
--- NOTE | 2024-06-05 02:06 | NUR ---
THIS RN TO ASSUME CARE. REPORT RECEIVED FROM OFF GOING RN. PT LYING IN BED WITH EYES CLOSED. AWAKENS EASILY DURING ROUNDING. PT PULLED SL. TIP INTACT. NO BLEEDING NOTED. LINEN AND GOWN CHANGED. PT REPORTS SHE IS COMFORTABLE. DENIES NEEDS. CALL LIGHT IN REACH.
--- NOTE | 2024-06-05 03:36 | NUR ---
ULTRA SOUND GUIDED IV PLACED IN RIGHT UPPER FOREARM BY ED RN. IV WRAPPED IN MESH NETTING. MORNING LABS SENT. IVF INFUSING WNL. PT DENIES PAIN. LLE IN WALKING BOOT. CMS INTACT. ASSISTED TO REPOSITION. SIPS OF WATER GIVEN. NO FURTHER NEEDS. CALL LIGHT IN REACH. BED ALARM FOR SAFETY.
--- NOTE | 2024-06-05 03:55 | NUR ---
IN TO ASSIST PT TO REPOSITION IN BED AND REPLACE NASAL CANNULA. PT DROWSY, DOZING ON AND OFF. REPORTS RLE PAIN 06/02. PRN FOR PAIN ADMIN PER EMAR. RLE IN KNEE IMMOBILIZER. CMS INTACT. FRESH ICE PACK TO KNEE. BROTH PROVIDED. PT DENIES FURTHER NEEDS. CALL LIGHT IN REACH.
[2024-06-05 05:09] LABS: HEMOGLOBIN 11.2 g/dL (12.0-18.0); MCHC 32.1 g/dl (30-36)
[2024-06-05 05:12] LABS: BASOPHILS 0.2 % (0-2); EOSINOPHILS 3.8 % (0-6); HEMATOCRIT 34.9 % (35.0-50.0); LYMPHOCYTES 31.6 % (24-44); MCH 29.5 (27-36); MCV 92.1 fl (81-99); MONOCYTES 8.9 % (0-12); NEUTROPHILS 55.5 % (39-80); PLATELET COUNT 299 K/uL (140-440); RBC 3.79 M/ul (4.3-5.7); RDW 14.7 (10.5-15.0)
[2024-06-05 05:18] LABS: ALBUMIN 2.4 g/dL (3.4-5.0); ALBUMIN/GLOBULIN RATIO 0.67 (1.1-2.4); ANION GAP 14.1 (7-21); BILIRUBIN, TOTAL 0.3 ng/dL (0.2-1.0); BUN/CREATININE RATIO 14.66 (6.0-28.6); CALCIUM 7.9 mg/dL (8.5-10.1); CREATININE, SERUM 0.75 mg/dL (0.55-1.02); MAGNESIUM 1.8 mg/dL (1.8-2.4); PHOSPHORUS, INORGANIC 3.1 mg/dL (2.5-4.9); POTASSIUM 4.1 mmol/L (3.5-5.1)
[2024-06-05] MEDS ORDERED: LEVOTHYROXINE SODIUM 100 MCG TAB PO SCH (06:00)
--- NOTE | 2024-06-05 06:00 | NUR ---
PT RESTING WITH EYES CLOSED. AWAKENS EASILY. VS AND I&O OBTAINED, WNL. SCHEDULED MEDS ADMIN PER EMAR. PT DENIES PAIN. ASSISTED TO REPOSITION. NO FURTHER NEEDS. BED ALARM IN PLACE. CALL LIGHT IN REACH.
--- NOTE | 2024-06-05 07:33 | NUR ---
PT RESTING EYES CLOSED AT TIME OF SHIFT REPORT LEFT UNDISTURBED. CALL LIGHT AND FRESH H20 AT BEDSIDE
--- NOTE | 2024-06-05 08:37 | NUR ---
PT AWAKE NOW SITTING UP IN BED EATING BREAKFAST. AGREES SHE HAS EVERYTHING SHE NEEDS AND IS COMFORTABLE. REMINDED TO USE CALL LIGHT FOR NEEDS
--- NOTE | 2024-06-05 10:49 | NUR ---
PT RESTING EYES CLOSED VISITOR IS PRESENT RESTING IN CHAIR EYES CLOSED
--- NOTE | 2024-06-05 13:29 | NUR ---
VISITED DURING SPIRITUAL CARE ROUNDS. PT APPEARED CONFUSED. POOL NURSE PROVIDED SUPPORTIVE PRESENCE, HOSPITALITY, PRAYER. PT EXPRESSED GRATITUDE.
--- NOTE | 2024-06-05 14:13 | NUR ---
SPOKE WITH DICK, PATIENT FAMILY MEMBER, REGARDING DC PLAN. STATES SHE WOULD LIKE TO PLAN ON PATIENT GOING TO SNF. PREFERS PATIENT GO TO [facility] IF POSSIBLE PRIOR TO HER RETURN TO [facility].
--- NOTE | 2024-06-05 14:59 | NUR ---
PT RESTING QUIET ALERT IN BED REFUSES OFFER OF TV OR READING MATERIAL. PT DENIES PAIN OR NEEDS OF
--- NOTE | 2024-06-05 17:32 | NUR ---
PT RESTING IN BED EATING EVENING MEAL AT CHAIRSIDE
--- NOTE | 2024-06-05 19:16 | NUR ---
REPORT RECIEVED FROM DAY SHIFT RN. PATIENT RESTING IN BED ON BACK WITH IN ROOM. PATIENT DENIES NEEDS AT THIS TIME. CALL LIGHT IN REACH.
--- NOTE | 2024-06-05 21:10 | NUR ---
V/S AND I&O'S COMPLETED. PATIENT'S ATTENDS CHANGED AFTER JUWAN CARE AND WINN CARE. NOTICED REDNESS ON PUBIS AREA AND IN BETWEEN INNER THIGH AND PLACED CLOTH TO PREVENT SKIN TO SKIN CONTACT. PATIENT BOOSTED UP TO THE HEAD OF THE BED AND POSTIONED PATIENT FOR HER COMFORT. LEFT LEG IMMOBILIZER IN PLACED. BED ALARM ON FOR SAFETY. PATIENT IS READING A MAGAZINE AT THIS TIME.
[2024-06-05] MEDS ORDERED: MICONAZOLE NITRATE 1 EA BTL TOP SCH (21:16)
--- NOTE | 2024-06-05 21:50 | NUR ---
ASSESSMENT DONE. IV ABX INFUSING PER ORDER, SEE MAR. IV ASSESSED, WNL. CMS INTACT IN LLE. pt DENIES ANY PAIN AT THIS TIME. SCHEDULED MEDICATION ADMINISTERED. WALKING BOOT ON pt LEFT FOOT. WATER REFRESHED. pt DENIES ANY OTHER NEEDS AT THIS TIME. CALL LIGHT WITHIN REACH.
--- NOTE | 2024-06-05 23:49 | NUR ---
IN TO CHECK ON pt. pt TAKING OFF LLE BOOT AND TOOK OFF STAT LOCK. THIS RN BROUGHT IN PRN PAIN MEDICATION AND REAPPLIED THE BOOT AND PUT ON NEW STAT LOCK WITH THE HELP OF FLOOR RETAIL MERCHANDISING COORDINATOR. PRN PAIN MEDS ADMINISTERED. pt DENIES ANY OTHER NEEDS AT THIS TIME. CALL LIGHT WITHIN REACH. BED ALARM ON.
[2024-06-06] VITALS (13 sets, daily range): BP systolic 134–147; BP diastolic 48–81
--- NOTE | 2024-06-06 01:15 | NUR ---
pt RESTING THE BED WITH EYES CLOSED. RR EVEN AND UNLABORED. CALL LIGHT WITHIN REACH.
--- NOTE | 2024-06-06 03:17 | NUR ---
pt RESTING IN THE BED WITH EYES CLOSED. RR EVEN AND UNLABORED. CALL LIGHT WITHIN REACH.
--- NOTE | 2024-06-06 06:00 | NUR ---
pt PRE PROCEDURE WIPE DOWN DONE. VITAL SIGNS AND ASSESSMENT DONE. NEW BRIEF AND LINNENS PROVIDED. WINN EMPTIED AND CARE DONE. pt DENIES ANY OTHER NEEDS AT THIS TIME. BOOT ON LLE IN PLACE. BED ALARM ON. CALL LIGHT WITHIN REACH.
[2024-06-06] MEDS ORDERED: CEFAZOLIN SODIUM 2 GM/20 ML SYR IV SCH (07:00)
[2024-06-06] MEDS ORDERED: TRANEXAMIC ACID 2,000 MG in SODIUM CHLORIDE 0.9% 100 ML IV SCH (07:00)
--- NOTE | 2024-06-06 07:01 | NUR ---
BEDSIDE REPORT RECEIVED FROM MARGIE MATTSON. PT RESTS IN BED WITH EYES CLOSED, RESP EVEN AND UNLABORED.
--- NOTE | 2024-06-06 07:35 | NUR ---
CLINICALS FAXED TO [facility] FOR REFERRAL FOR SNF WHICH PATIENT MAY NEED AT [place].
--- NOTE | 2024-06-06 08:02 | NUR ---
RING AND WATCH REMOVED FOR SURGERY. PLACED IN LOCKED BOX IN ROOM WITH PT PERMISSION.
--- NOTE | 2024-06-06 09:40 | NUR ---
VISITED DURING SPIRITUAL CARE ROUNDS. PT SUPPORTED BY FAMILY IN ROOM. WORKFORCE CONSULTANT PROVIDED SUPPORTIVE PRESENCE, HOSPITALITY, PRAYER. FAMILY AND PT EXPRESSED GRATITUDE, HOPE.
--- NOTE | 2024-06-06 09:45 | NUR ---
PT LEAVES UNIT WITH MARGIE TSE TO SURGERY, TXA AND CEFAZOLIN WITH MARGIE TSE.
[2024-06-06] MEDS ORDERED: LIDOCAINE HCL 2% 5 ML SDV ONE (09:52)
[2024-06-06] MEDS ORDERED: DEXAMETHASONE SOD PHOS 4 MG/ML VIAL ONE (09:52)
[2024-06-06] MEDS ORDERED: Ropivacaine HCl 0.5% 30 ML VIAL ONE (09:52)
[2024-06-06] MEDS ORDERED: propofoL 200 MG/20 ML VIAL ONE (09:52)
[2024-06-06] MEDS ORDERED: SODIUM CHLORIDE 0.9% 40 ML IV ONE (09:52)
[2024-06-06] MEDS ORDERED: ACETAMINOPHEN 1,000 MG/100 ML VIAL ONE (10:38)
--- NOTE | 2024-06-06 11:06 | NUR ---
RECEIVED CALL FROM CHAD AT [facility]. THEY ARE ABLE TO ACCEPT PATIENT FOR SNF WHEN SHE IS MEDICALLY CLEARED.
[2024-06-06] MEDS ORDERED: fentaNYL citrate 50 MCG/ML SDV IV PRN (11:15)
[2024-06-06] MEDS ORDERED: NALOXONE HCL 0.4 MG SYR IV PRN (11:15)
[2024-06-06] MEDS ORDERED: ondansetron HCL 4 MG/2 ML VIAL IV PRN (11:15)
[2024-06-06] MEDS ORDERED: IBLOOD GLUCOSE TEST STRIP 1 EA TEST VI PRN (11:15)
--- NOTE | 2024-06-06 11:41 | NUR ---
06/06/24 1141 Aleksey lA 1117: PT ARRIVED TO PACU VIA STETCHER. PT ARRIVED ON 6L VIA MASK. PT REPSONSIVE TO VOICE. PT HAS BRACE IN PLACE TO LEFT LOWER EXTREMITY. ICE APPLIED. REPORT TAKEN FROM JULIO CESAR HANSON. 1123: PT PULLING AT MASK. TITRATED PATIENT TO RA AT THIS TIME. 1125: PTS SATS IN THE MID 90'S ON RA. PT OPENING EYE'S AND RESPONDING TO NAME. 1130: PT PULLING AT CORDS. REASSURED PATIENT SHE WAS OKAY AND IN THE RECOVERY ROOM. PT HAS NO COMPLAINTS OF PAIN OR NAUSEA. 1135: PT REMAINS ON RA WITH SATS IN THE MID 90'S. PT ALERT TO SELF. NO COMPLAINTS OF PAIN OR NAUSEA.
--- NOTE | 2024-06-06 12:07 | NUR ---
PT ARRIVES TO MED-SURG ROOM 111 VIA GURNEY, ESCORTED BY MARGIE VALENTE. S/P LEFT ORIF TIB/FIB. BEDSIDE REPORT RECEIVED FROM MARGIE VALENTE. PT IS ALERT AND ORIENTED TO SELF PER BASELINE. PT DENIES PAIN OR NAUSEA AT THIS TIME. SCD TOES TO KNEE ON RLE. HARD BOOT IN PLACE TO LLE FROM TOES TO KNEE, PT ABLE TO MOVE TOES. ICE IN PLACE OVER BOOT. FAMILY X2 IN ROOM AT BEDSIDE. VSS. HRR, LUNGS CLEAR. PT RE-ORIENTED TO ROOM. CALL LIGHT IN REACH.
--- NOTE | 2024-06-06 12:41 | NUR ---
PT EATS JELLO AND CRACKERS, DRINKS JUICE. TOLERATING WELL AT THIS TIME. MORPHINE RECEIVED FOR REPORT OF LLE PAIN 03/02, SEE EMAR.
--- NOTE | 2024-06-06 13:06 | NUR ---
PT EATS 100% OF JELLO AND CRACKERS, TOLERATES THIS WELL, DENIES NAUSEA. PT REPORTS PAIN TOLERABLE AT THIS TIME. ICE REMAINS IN PLACE OVER LEFT BOOT. SCD TO RLE. CONTINUOUS PULSE OXIMETER IN PLACE.
--- NOTE | 2024-06-06 13:21 | NUR ---
Discussed with Sarahi, step-daughter and secondary POA, acceptance from [facility] when patient is medically cleared. Dr. Pugh notified as well.
[2024-06-06] MEDS ORDERED: DULOXETINE HCL 20 MG CAP ONE (13:36)
[2024-06-06] MEDS ORDERED: PANTOPRAZOLE SODIUM 40 MG TABEC ONE (13:37)
--- NOTE | 2024-06-06 17:38 | NUR ---
FRESH ICE PLACED TO LLE.
--- NOTE | 2024-06-06 20:30 | NUR ---
RECEIVED REPORT FROM MARGIE MATTSON, JULY CARES AT THIS TIME. PT IN BED, LEFT FOOT IN BOOT, ICE PACK OVER TOP; PT SMILED; STATED SHE WAS NOT HURTING.
--- NOTE | 2024-06-06 21:16 | NUR ---
SALES SERVICE SUPERVISOR OBTIANED VITALS AND I&O. WINN BAG EMPTIED. PT STATES NO FURTHER NEEDS AT THIS TIME. CALL LIGHT WITHIN REACH.
--- NOTE | 2024-06-06 22:10 | NUR ---
WITH ASSIST OF IT INFRASTRUCTURE SPECIALIST, PT REPOSITIONED, CATH CARE COMPLETED, BARRIER CREAM TO BUTTUCK REDDNESS, NOTED TO BE ROUGH SKIN, VS SMOOTH. PERICARE COMPLETED, AND POWDER APPLIED TO THE GROIN AREA, A DULL RED COLOR. PT PLACED ON HER RIGHT SIDE, WITH PILLOW SUPPORTS UNDER LEFT LEG, WELL BACK. PT CONTINUES TO DENIE PAIN. SCD LEFT LEG, 2 FRESH ICE PACKS OVER BOOT;
--- NOTE | 2024-06-06 23:44 | NUR ---
ROUNDED ON PT, PT LAYING ON RIGHT SIDE, EYES CLOSED, RESP EVEN AND UNLABORED.
--- NOTE | 2024-06-07 01:18 | NUR ---
ROUNDED ON PT. EYES OPEN, PT UNABLE TO STATE WHERE SHE IS. DENIES PAIN, NO VISUAL PAIN SIGNS, RELAXED LOOK ON FACE. LEFT LEG ELEVATED ON PILLOW, ICE IN PLACE. SCD IN PLACE LEFT LEG. BED ALARM IN PLACE.
[2024-06-07 01:32] VITALS: BP 150/57
--- NOTE | 2024-06-07 02:00 | NUR ---
TROUBLE CLERK IN TO DO VS, PT SAID SHE WAS HURTING. MEDICATED WITH 2MG MORPHINE IV, PT REPOSITIONED WITH PILLOW UNDER RIGHT SIDE, LAYING ON HER LEFT SIDE MORE, ROBERT LEGS ON PILLOWS, WITH ICE PACK OVER BOOT. ABLE TO WIGGLE TOES; TOES WARM; PT PLEASANT AND COOPERATIVE. WINN WITH ZEB URINE. BED ALARM REPLACED. LIGHTS OUT.
[2024-06-07 02:08] VITALS: BP 150/57
[2024-06-07 05:38] VITALS: BP 151/79
[2024-06-07 05:40] LABS: BASOPHILS 0.4 % (0-2); HEMOGLOBIN 10.3 g/dL (12.0-18.0); LYMPHOCYTES 23.1 % (24-44); MONOCYTES 7.4 % (0-12)
[2024-06-07 05:42] LABS: EOSINOPHILS 3.4 % (0-6); HEMATOCRIT 32.2 % (35.0-50.0); MCH 29.5 (27-36); MCHC 32.1 g/dl (30-36); NEUTROPHILS 65.7 % (39-80); PLATELET COUNT 290 K/uL (140-440); RDW 14.1 (10.5-15.0)
--- NOTE | 2024-06-07 05:56 | NUR ---
REPOSITIONED PT, PILLOW UNDER EACH HIP, BOTH LEGS ELEVATED ON PILLOW. GRIMANCED AND SAID OUCH DURNING PROCESS, YET IF ASKED IF SHE WAS IN PAIN SHE WOULD SAY NO. UNABLE TO GIVE A NUMBER, SAID "I DON'T KNOW", MEDICATED WITH 2MG MORPHINE. IV FLUSHES WELL, WRAPPED TO PROTECT FROM BEING PULLED ON. WINN WITH ADEQUATE UO; FRESH ICE WATER WELL 2 ICE PACKS FOR ANKLE. BED ALARM IN PLACE, CALL LIGHT WITHIN REACH.
[2024-06-07 05:57] LABS: ALBUMIN 2.2 g/dL (3.4-5.0); ALBUMIN/GLOBULIN RATIO 0.65 (1.1-2.4); ANION GAP 13.8 (7-21); BILIRUBIN, TOTAL 0.3 ng/dL (0.2-1.0); BUN/CREATININE RATIO 15.15 (6.0-28.6); CREATININE, SERUM 0.66 mg/dL (0.55-1.02); MAGNESIUM 1.7 mg/dL (1.8-2.4); PHOSPHORUS, INORGANIC 2.5 mg/dL (2.5-4.9); POTASSIUM 3.8 mmol/L (3.5-5.1); PROTEIN, TOTAL 5.6 g/dL (6.4-8.2)
--- NOTE | 2024-06-07 06:15 | NUR ---
WINN REMOVED, AFTER DEFLATING BALLOON OF 10 MLS. SL RESISTENCE IN REMOVING, UNCOMFORTABLE FOR PT. ENCOURAGED RELAXATION, WHILE DIFFICULT, HE DID, WINN OUT. URINE PRESENT, NO OTHER DISCHARGE. BRIEF PLACED, PT AWARE TO CALL. FRESH WASH CLOTH GIVEN, DENIED BRUSHING TEETH AT THIS TIME. ENCOURAGED PT TO REQUEST TO HAVE TEETH BRUSHED. CRYO ICE FILLED, PT REPOSITIONED, PLACED LEFT LEG ON PILLOW TO GET HEEL OFF BED, ROLLED TOWEL UNDER HEEL OF RIGHT HIP. REPOSITIONED JESICA WRAP, NOTABLE EDEMA IN RIGHT THIGH. MEDICATED FOR PAIN, GOT HIS BREAKFAST ORDER. FRESH COFFEE AT THIS TIME WELL. FOOT PUMPS REMAIN IN PLACE.
[2024-06-07] MEDS ORDERED: OXYCODONE HCL 5 MG TAB PO PRN (07:15)
--- NOTE | 2024-06-07 07:33 | NUR ---
recieved in room pt report with shift nurse at 0705. pt is currently awake and laying in bed. no concerns noted at this time. when offered cares pt denied any need at this time. call light within reach
[2024-06-07] MEDS ORDERED: MAGNESIUM CHLORIDE 64 MG TABCR PO ONE (08:15)
--- NOTE | 2024-06-07 09:05 | NUR ---
VISITED DURING SPIRITUAL CARE ROUNDS. PT IN [facility] SPIRITS, APPEARED TO STRUGGLE TO FOLLOW CONVERSATION, REPEATING QUESTIONS ALREADY ANSWERED. MASS SPECTROMETRY MANAGER PROVIDED ANXIETY CONTAINMENT, HOSPITALITY, PRAYER. PT EXPRESSED GRATITUDE.
[2024-06-07 09:36] VITALS: BP 145/87
[2024-06-07] MEDS ORDERED: CEFDINIR300 MG PO (11:14)
[2024-06-07] MEDS ORDERED: OXYCODONE HCL5 MG PO (11:15)
--- NOTE | 2024-06-07 11:53 | NUR ---
Spoke with Eliz and her poa, and Troy. Plan remains to go to [facility] today. Called [facility] and they do have a bed for her.They would like her there early afternoon. Called the van and they can transport between 1:00 and 1:30. will complete SNF orders.
--- NOTE | 2024-06-07 11:55 | NUR ---
Faxed Orders, PASRR, RX, PT notes, and DC summary. Texted [facility] orders have been faxed. EMR notes in the envelope.
--- NOTE | 2024-06-07 16:18 | OR ---
[facility] [address] [place], [place] [address] Signed DATE OF OPERATION: 06/06/2024 SURGEON: Namita Pugh MD PREOPERATIVE DIAGNOSIS: Left bimalleolar ankle fracture. POSTOPERATIVE DIAGNOSIS: Left bimalleolar ankle fracture. PROCEDURE PERFORMED: Open reduction and internal fixation bimalleolar ankle fracture. STAFF CERTIFIED NURSE MIDWIFE: None. ANESTHESIA: General. BLOOD LOSS: None. 22 minutes on the tourniquet. IMPLANTS: 3 x 130 FibuLock with two locking screws, 3.5 x 40 headless screw medially. BRIEF HISTORY: Thea is a 78-year-old female with significant dementia. She had an ankle fracture about a week ago, unable to get along with the assisted living facility. She was admitted to the medicine service for surgery today. The risks, benefits, and alternatives were discussed with her and her daughter and they elected to proceed. DESCRIPTION OF OPERATION: Once consent was obtained, she was taken to the operating room. After adequate anesthesia, she was placed on the operating table. All downside pressure points were well padded. The left leg was placed in well-padded proximal thigh tourniquet and prepped and draped in a standard sterile fashion. The leg was exsanguinated using Esmarch bandage. Tourniquet inflated to 250 mmHg. The fibula was reduced and held with foot abduction and rotation. The distal fibula was then approached through a 1.5 cm incision. The blunt dissection was taken down to the tip of the fibula and the guide pin was advanced from the tip of the fibula across the fracture engaging the body of the Electronically Signed By: NAMITA PUGH MD 06/07/24 1618 PATIENT NAME: THEA ALTAMIRANO OPERATIVE REPORT DATE OF : 43 REPORT #: [id number] PHYSICIAN: NAMITA PUGH MD PCP: CHANELLE GARCIA MD REPORT IS CONFIDENTIAL AND NOT TO BE RELEASED WITHOUT AUTHORIZATION [facility] [address] [place], [place] [address] Signed fibula proximally. The guide pin was then overdrilled using the large distal reamer. This was then replaced with a long guide sarabjit, which was advanced proximally. This was then over-reamed using 3.1 reamer. The 3 x 130 FibuLock was then placed through the fibular opening and advanced across the fracture engaging the body of the fracture proximally. The proximal fins were deployed and the two locking screws were placed through separate incisions. The final reduction and placement of the sarabjit was good. Attention was then turned to the distal medial malleolus, which was cracked but nondisplaced. This was approached through a 1 cm incision and a guide pin for the headless screw set was placed from the tip of the malleolus proximally engaging the body of the tibia. This was measured to 40 and a 3.5 mm x 40 headless screw was placed over this and in was advanced until it was countersunk. Good fixation was obtained. The guide pin was removed and the incisions were all irrigated with normal saline, closed with deepti. Both wounds were dressed with Allevyn dressing and Albert wrap. She was placed back in a fracture boot. She tolerated the procedure well. All sponge, needle, and instrument counts were correct. Namita Pugh MD BA/MODL /[id number] Copies: ~ Electronically Signed By: NAMITA PUGH MD 06/07/24 1618 PATIENT NAME: THEA ALTAMIRANO OPERATIVE REPORT DATE OF : 43 REPORT #: [id number] PHYSICIAN: NAMITA PUGH MD PCP: CHANELLE GARCIA MD REPORT IS CONFIDENTIAL AND NOT TO BE RELEASED WITHOUT AUTHORIZATION
== END 2024-06-07 13:33 | disposition home or self-care (01) | DRG 493 ==
LOC: ED 16:54 → MS 22:16
PROVIDERS: Family Medicine; Specialist; ADMIT Family Medicine; ATTEND Family Medicine
PROC: 0QSH04Z Reposition Left Tibia with Internal Fixation Device, Open Approach (ICD-10-PCS; principal; 2024-06-06 09:10)
DX: S82.842A Displaced bimalleolar fracture of left lower leg, initial encounter for closed fracture (principal); N39.0 Urinary tract infection, site not specified; E03.9 Hypothyroidism, unspecified; K21.9 Gastro-esophageal reflux disease without esophagitis; I10 Essential (primary) hypertension; E83.42 Hypomagnesemia; W19.XXXA Unspecified fall, initial encounter; I25.10 Atherosclerotic heart disease of native coronary artery without angina pectoris; F03.90 Unspecified dementia, unspecified severity, without behavioral disturbance, psychotic disturbance, mood disturbance, and anxiety; Z98.890 Other specified postprocedural states; Z88.0 Allergy status to penicillin; Z88.2 Allergy status to sulfonamides; Z88.8 Allergy status to other drugs, medicaments and biological substances; Z79.899 Other long term (current) drug therapy; Z79.890 Hormone replacement therapy
CPT/HCPCS: 01480; 36415; 51702; 73600; 73610; 73700; 80053; 81001; 83735; 84100; 85025; 85610; 87088; 93005; 93010; 94762; 97161; 99285-25; A9270; J0131; J0690; J0696; J1100; J2001; J2270; J2704; J2795; J7030

== ENCOUNTER 2025-09-18 03:11 | Emergency (ER) | payer MEDICARE, OTHER ==
[~2025-09-18] VITALS: Ht 154.9 cm; Wt 806.0 kg
[~2025-09-18 03:11] MED LIST changes: +BETAMETHASONE D15 G1 TOP; +CEFDINIR300 MG PO; +CYMBALTA20 MG PO; +FOSAMAX70 MG PO; +MAGNESIUM250 M1 PO; +MIRALAX17 GM PO; +TURMERIC500 M2 PO; +VITAMIN D325 MCG PO
[2025-09-18] MEDS ORDERED: CALCIUM + D3 E1 EACH PO (03:25)
[2025-09-18 03:40] LABS: BASOPHILS 0.2 % (0.1-1.2); EOSINOPHILS 3.2 % (0.7-5.8); LYMPHOCYTES 37.4 % (19.3-51.7); MCH 29.5 PG (25.6-32.2); MCHC 31.1 g/dL (32.2-35.5); MCV 94.8 fL (79.4-94.8); MONOCYTES 8.2 % (4.7-12.5); NEUTROPHILS 50.8 % (34.0-71.1); RBC 3.86 M/uL (3.93-5.22)
[2025-09-18 03:59] LABS: ALT (SGPT) 11.0 U/L (14-59); AST (SGOT) 14.0 U/L (15-37); GLOMERULAR FILTRATION RATE,EST 63.0 mL/min (>60); PROTEIN, TOTAL 6.7 g/dL (6.4-8.2); UREA NITROGEN 14.0 mg/dL (7-18)
[2025-09-18 05:44] LABS: BLOOD/HGB, URINE NEGATIVE (Negative); KETONE, URINE TRACE (Negative); LEUK ESTERASE, URINE MODERATE (negative); NITRITE, URINE POSITIVE (negative)
[2025-09-18 05:50] LABS: EPITHELIAL CELLS, URINE SQUAMOUS 1+ /lpf (0-1+)
[2025-09-18 05:51] LABS: BACTERIA, URINE 4+ /hpf (negative); CASTS, URINE NONE SEEN \\lpf; CRYSTALS, URINE NONE SEEN (0-1+); REFLEX CULTURE, URINE Yes (No)
[2025-09-18] MEDS ORDERED: NITROFURANTOIN MONOHYD MACROCR 100 MG HOME.PACK PO ONE (06:00)
[2025-09-18] MEDS ORDERED: MACROBID 100 M100 MG PO (06:10)
[2025-09-18 07:05] VITALS: BP 152/73
--- NOTE | 2025-09-20 13:10 | EKG ---
[facility] [address] [facility] [place] [address] Signed Normal sinus rhythm Left anterior fascicular block Moderate voltage criteria for LVH, may be normal variant ( R in aVL , Taran product ) Abnormal ECG When compared with ECG of 03-JUN-2024 21:07, No significant change was found Confirmed by Yinka Kaiser DO ([id number]) on 09/20/2025 1:10:37 PM Electronically Signed By: YINKA KAISER DO 09/20/25 1310 PATIENT NAME: CALVIN ALTAMIRANO Electrocardiogram DATE OF : 43 PHYSICIAN: YINKA KAISER DO REPORT #: [id number] REPORT IS CONFIDENTIAL AND NOT TO BE RELEASED WITHOUT AUTHORIZATION
== END 2025-09-18 07:22 | disposition home or self-care (01) ==
LOC: ED 03:11
PROVIDERS: Internal Medicine
DX: S20.212A Contusion of left front wall of thorax, initial encounter (principal); W18.30XA Fall on same level, unspecified, initial encounter; I10 Essential (primary) hypertension; Z88.0 Allergy status to penicillin; Z88.2 Allergy status to sulfonamides; Z88.8 Allergy status to other drugs, medicaments and biological substances
CPT/HCPCS: 36415; 51701; 70450; 71045; 72125; 80053; 81001; 83735; 83880; 84484; 85025; 87077; 87088; 87186; 93005; 93010; 99284-25